=== PATIENT | female | born 1965 | race Hispanic/Latino ===

== ENCOUNTER 2016-08-12 20:48 | Emergency (ER) | payer MEDICAID ==
[2016-08-12 21:00] VITALS: BP 188/121
--- NOTE | 2016-08-12 21:39 | Emergency Department Report ---
Chief Complaint: Nausea/Vomiting/Diarrhea Stated Complaint: FLU SYMPTOMS - Exam Vital Signs: Vital Signs 08/12/16 20:56 Temperature 98.9 F Pulse Rate 111 H Respiratory 20 Rate Blood Pressure 188/121 O2 Sat by Pulse 97 Oximetry MSE screening note: Focused history and physical exam performed. Due to findings the following was ordered: ED Disposition for MSE Condition: Stable
== END 2016-08-12 21:40 | disposition left against medical advice (07) ==
LOC: ED 20:48
DX: R11.2 Nausea with vomiting, unspecified (principal); R50.9 Fever, unspecified; M79.1 Myalgia; Z53.21 Procedure and treatment not carried out due to patient leaving prior to being seen by health care provider

== ENCOUNTER 2017-01-30 08:51 | Emergency (ER) | payer MEDICAID ==
[2017-01-30 09:41] LABS: Basophils % (Auto) 0.4 % (0.0-1.8); Eosinophils % (Auto) 1.3 % (0.0-4.3); Hematocrit 42.8 % (30.3-42.9); Hemoglobin 14.5 gm/dl (10.1-14.3); Mean Corpuscular HGB Conc 34 % (30-34); Mean Corpuscular Hemoglobin 29 pg (28-32); Mean Corpuscular Volume 87 fl (79-97); Platelet Count 383 K/mm3 (140-440); Red Blood Count 4.94 M/mm3 (3.65-5.03); Red Cell Distribution Width 14.3 % (13.2-15.2); White Blood Count 12.5 K/mm3 (4.5-11.0)
[2017-01-30 10:03] LABS: BUN/Creatinine Ratio 23.33; Blood Urea Nitrogen 14 mg/dL (7-17); Calcium 9.4 mg/dL (8.4-10.2); Carbon Dioxide 22 mmol/L (22-30); Chloride 104.9 mmol/L (98-107); Glucose 113 mg/dL (65-100); Lipase 28 units/L (13-60); Sodium 144 mmol/L (137-145)
--- NOTE | 2017-01-30 10:11 | XRay Report ---
CHEST 2 VIEWS INDICATION: Shortness of breath. COMPARISON: 11/08/2016. FINDINGS: PA and lateral chest radiographs demonstrate normal cardiomediastinal silhouette. Clear lungs. Mild thoracic spine degenerative spurring. CONCLUSION: No acute disease in the chest. Thank you for the opportunity to participate in this patient's care.
[2017-01-30 10:15] LABS: Bacteria,Urine 1+ /HPF (Negative); Bilirubin,Urine NEG (Negative); Blood,Urine NEG (Negative); Ketones,Urine NEG (Negative); Leukocyte Esterase,Urine TR (Negative); Mucus,Urine 3+ /HPF; Nitrite,Urine NEG (Negative)
[2017-01-30 11:44] LABS: Anion Gap 21 mmol/L; Potassium 3.6 mmol/L (3.6-5.0)
[2017-01-30 12:09] VITALS: BP 165/94
[2017-01-30] MEDS ORDERED: ZOFRAN IM ONE (12:35)
--- NOTE | 2017-01-30 12:40 | Emergency Department Report ---
HPI - General Chief Complaint: Chest Pain Time Seen by Provider: 01/30/17 12:21 - HPI HPI: Room 7 Patient is a 51-year-old female presenting with a chief complaint of cough. Patient states she has had a "lung infection" intermittently since November. The patient states November she developed a cough productive of green sputum. Patient states the following while she eventually saw her physician (Dr. Lang) placed her on an antibiotic (patient believes it was Keflex). The patient states her fever resolved and her cough improved however after she complained of antibiotics her symptoms return. The patient states this month Dr. Lang again place her on antibiotics but she cannot recall the name. The patient states again her symptoms improve while she finished the course her symptoms return. The patient states she developed a sore throat and right ear pain in addition to her cough productive of green sputum nausea and vomiting. Location: [see above] Duration: [see above] Quality: Nausea Severity: Moderate Modifying factors: [see above] Context: [see above] Mode of transportation: [not driving] ED Past Medical Hx - Past Medical History Previous Medical History?: Yes Hx Hypertension: Yes Hx Arthritis: Yes Hx Headaches / Migraines: (Complex) Additional medical history: Arnold Chiari malformation. Gastroparesis. ruptured disc in back. TIA. meningitis x6 - Surgical History Past Surgical History?: Yes Hx Cholecystectomy: Yes Additional Surgical History: Arnold-Chiari malformation repaired, cyst removed from left neck - Family History Family history: no significant - Social History Smoking Status: Current Every Day Smoker (one pack per day) Substance Use Type: None (denies elicited drug use), Prescribed, Other - Medications Home Medications: Home Medications Medication Instructions Recorded Confirmed Last Taken Type fentaNYL [Fentanyl] 1 each TD Q72H 12/18/15 11/08/16 Unknown History Oxycodone HCl [Roxicodone TAB] 30 mg PO QID PRN 06/24/16 11/08/16 Unknown History Carisoprodol [Soma] 350 mg PO QID 11/08/16 11/08/16 Unknown History Zolpidem [Ambien] 10 mg PO QHS 11/08/16 11/08/16 Unknown History Amoxicillin/K Clav Tab [Augmentin 1 tab PO Q12HR #20 tab 01/30/17 Unknown Rx 875 mg] Benzonatate [Tessalon Perles] 100 mg PO Q8HR #30 capsule 01/30/17 Unknown Rx Ondansetron [Zofran ODT TAB] 8 mg PO Q8HR #20 tab.rapdis 01/30/17 Unknown Rx traMADol [Ultram] 50 mg PO Q6HR PRN #20 tablet 01/30/17 Unknown Rx ED Review of Systems ROS: Stated complaint: CHEST PAIN/VOMITING Other details as noted in HPI Comment: All other systems reviewed and negative Constitutional: fever Eyes: denies: eye pain, eye discharge, vision change ENT: ear pain, throat pain Respiratory: cough Cardiovascular: denies: chest pain, palpitations Endocrine: no symptoms reported Gastrointestinal: nausea, vomiting Genitourinary: denies: urgency, dysuria, discharge Musculoskeletal: denies: back pain, joint swelling, arthralgia Skin: denies: rash, lesions Neurological: denies: headache, weakness, paresthesias Psychiatric: as per HPI Hematological/Lymphatic: denies: easy bleeding, easy bruising Physical Exam - Physical Exam Vital Signs: Vital Signs 01/30/17 01/30/17 01/30/17 09:09 12:09 12:10 Temperature 98.7 F 98.9 F Pulse Rate 81 80 Respiratory 20 15 15 Rate Blood Pressure 183/104 Blood Pressure 165/94 [Left] O2 Sat by Pulse 97 94 94 Oximetry Physical Exam: GENERAL: The patient is well-developed well-nourished female lying on stretcher not appearing to be in acute distress. [] HEENT: Normocephalic. Atraumatic. Extraocular motions are intact. Patient has moist mucous membranes. Right tonsillar exudate seen. Right TM slightly erythematous superiorly. Normal TM on the left NECK: Supple. No meningitic signs are noted. Trachea midline. No stridor CHEST/LUNGS: Clear to auscultation. There is no respiratory distress noted. HEART/CARDIOVASCULAR: Regular. There is no tachycardia. There is no gallop rub or murmur. ABDOMEN: Abdomen is soft, nontender. Patient has normal bowel sounds. There is no abdominal distention. SKIN: There is no rash. There is no edema. There is no diaphoresis. NEURO: The patient is awake, alert, and oriented. The patient is cooperative. The patient has normal speech MUSCULOSKELETAL: There is no evidence of acute injury. ED Course Vital Signs 01/30/17 01/30/17 01/30/17 09:09 12:09 12:10 Temperature 98.7 F 98.9 F Pulse Rate 81 80 Respiratory 20 15 15 Rate Blood Pressure 183/104 Blood Pressure 165/94 [Left] O2 Sat by Pulse 97 94 94 Oximetry ED Medical Decision Making - Lab Data Result diagrams: 01/30/17 09:21 01/30/17 09:21 Laboratory Tests 01/30/17 01/30/17 01/30/17 09:21 09:21 09:58 WBC 12.5 H RBC 4.94 Hgb 14.5 H Hct 42.8 MCV 87 MCH 29 MCHC 34 RDW 14.3 Plt Count 383 Lymph % (Auto) 20.3 [place] % (Auto) 8.6 H Eos % (Auto) 1.3 Baso % (Auto) 0.4 Lymph # 2.5 [place] # 1.1 H Eos # 0.2 Baso # 0.0 Seg Neutrophils % 69.4 Seg Neutrophils # 8.7 H Sodium 144 Potassium 3.6 Chloride 104.9 Carbon Dioxide 22 Anion Gap 21 BUN 14 Creatinine 0.6 L Estimated GFR > 60 BUN/Creatinine Ratio 23.33 Glucose 113 H Calcium 9.4 Troponin T < 0.010 Lipase 28 Urine Color Yellow Urine Turbidity Slightly-cloudy Urine pH 5.0 Ur Specific [place] 1.028 Urine Protein 30 mg/dl Urine Glucose (UA) Neg Urine Ketones Neg Urine Blood Neg Urine Nitrite Neg Urine Bilirubin Neg Urine Urobilinogen 2.0 Ur Leukocyte Esterase Tr Urine WBC (Auto) 11.0 H Urine RBC (Auto) 4.0 U Epithel Cells (Auto) 15.0 H Urine Bacteria (Auto) 1+ Urine Mucus 3+ - EKG Data -: EKG Interpreted by Me EKG shows normal: sinus rhythm Rate: normal - EKG Data When compared to previous EKG there are: no significant change Interpretation: unchanged when compared t (11/11/2016) - Radiology Data Radiology results: report reviewed (chest x-ray), image reviewed (chest x-ray) interpreted by me: Chest x-ray-no focal infiltrates, no pneumothorax Chest x-ray (read by radiologist)-no acute disease in the chest - Differential Diagnosis URI, pharyngitis, bronchitis, otitis media, pneumonia Critical care attestation.: If time is entered above; I have spent that time in minutes in the direct care of this critically ill patient, excluding procedure time. ED Disposition Clinical Impression: Acute pharyngitis, Right otitis media, Acute bronchitis, Post-tussive emesis Disposition: TO HOME OR SELFCARE Is pt being admited?: No Does the pt Need Aspirin: No Condition: Stable Instructions: Acute Bronchitis (ED) Additional Instructions: Return to the emergency department immediately should you develop worsening symptoms, fever, inability to tolerate food or liquid or any other concerns. 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 Please follow up with him for further evaluation) Time of Disposition: 12:56
[2017-01-30] MEDS ORDERED: ULTRAM ONE (12:58)
== END 2017-01-30 13:23 | disposition home or self-care (01) ==
LOC: ED 08:51
DX: J02.9 Acute pharyngitis, unspecified (principal); H66.91 Otitis media, unspecified, right ear; J20.9 Acute bronchitis, unspecified; I10 Essential (primary) hypertension; M19.90 Unspecified osteoarthritis, unspecified site; G43.909 Migraine, unspecified, not intractable, without status migrainosus; F17.210 Nicotine dependence, cigarettes, uncomplicated
CPT/HCPCS: 36415; 71020; 80048; 81001; 83690; 84484; 85025; 93005; 93010; 96372; 99284; J2405

== ENCOUNTER 2017-03-03 11:19 | Inpatient (IN) | payer MEDICAID ==
[2017-03-03 12:21] LABS: Bilirubin,Urine NEG (Negative); Blood,Urine SM (Negative); Ketones,Urine NEG (Negative); Leukocyte Esterase,Urine NEG (Negative); Mucus,Urine 3+ /HPF; Nitrite,Urine NEG (Negative)
[2017-03-03 12:27] LABS: Basophils % (Auto) 0.4 % (0.0-1.8); Eosinophils % (Auto) 0.1 % (0.0-4.3); Hematocrit 46.4 % (30.3-42.9); Hemoglobin 15.6 gm/dl (10.1-14.3); Mean Corpuscular HGB Conc 34 % (30-34); Mean Corpuscular Hemoglobin 29 pg (28-32); Mean Corpuscular Volume 87 fl (79-97); Platelet Count 375 K/mm3 (140-440); Red Blood Count 5.32 M/mm3 (3.65-5.03); Red Cell Distribution Width 14.3 % (13.2-15.2); White Blood Count 12.1 K/mm3 (4.5-11.0)
[2017-03-03 13:13] LABS: Alanine Aminotransferase 10 units/L (7-56); Albumin/Globulin Ratio 1.6 %; Alkaline Phosphatase 105 units/L (35-129); Anion Gap 23 mmol/L; BUN/Creatinine Ratio 17.77; Blood Urea Nitrogen 16 mg/dL (7-17); Calcium 10.1 mg/dL (8.4-10.2); Carbon Dioxide 23 mmol/L (22-30); Chloride 104.6 mmol/L (98-107); Glucose 104 mg/dL (65-100); Potassium 3.9 mmol/L (3.6-5.0); Sodium 147 mmol/L (137-145); Total Protein 8.2 g/dL (6.3-8.2)
[2017-03-03] MEDS ORDERED: NACL 0.9% 1000 ML 1,000 ML IV ONE ×2 (15:18→18:47)
[2017-03-03] MEDS ORDERED: DILAUDID IV ONE ×3 (15:18→18:46)
[2017-03-03] MEDS ORDERED: ZOFRAN IV ONE ×2 (15:18→17:29)
[2017-03-03] MEDS ORDERED: VALIUM IV ONE (15:18)
[2017-03-03] MEDS ORDERED: NACL ONE ×2 (15:22→16:00)
--- NOTE | 2017-03-03 16:35 | Cat Scan Report ---
FINAL REPORT PROCEDURE: CT head without contrast. TECHNIQUE: Computerized tomography of the head was performed without contrast material. HISTORY: Patient fell, question syncope, head injury. COMPARISON: CT head 11/07/2016. FINDINGS: The ventricles are normal in size. There is some encephalomalacia involving the left frontal and left temporal lobes near the sylvian fissure. This is consistent with an old infarct. Clinical correlation is suggested. The desai matter and white matter otherwise appear normal. There are no mass lesions. There is no intracranial hemorrhage. The calvarium appears intact. The mastoid air cells and visualized paranasal sinuses are well aerated. IMPRESSION: Probable previous old left-sided stroke as described. No evidence of acute disease.
--- NOTE | 2017-03-03 17:01 | Cat Scan Report ---
FINAL REPORT PROCEDURE: CT abdomen and pelvis with contrast. TECHNIQUE: Computerized axial tomography of the abdomen and pelvis was performed after the IV injection of iodinated nonionic contrast. HISTORY: Nausea, vomiting, abdominal pain, lower back pain after fall. COMPARISON: CT abdomen and pelvis 06/24/2016. FINDINGS: The lung bases are clear. There are no pleural effusions. The heart size is normal. The liver, pancreas and spleen appear normal. Cholecystectomy clips are present. There is mild intrahepatic and moderate extrahepatic biliary dilatation. This may be simply on the basis of the previous cholecystectomy. An MRCP or ERCP could be done for further evaluation if clinically indicated. The adrenal glands are not enlarged. There are approximately 4 small left renal cysts. The abdominal aorta has a normal caliber. There is no retroperitoneal adenopathy. The unopacified gastrointestinal tract is unremarkable. A normal appendix is visible. The bladder is unremarkable. There are some calcifications in the uterus suggesting degenerating leiomyomas. The adnexal regions appear normal. The regional skeleton appears intact. IMPRESSION: Previous cholecystectomy. Biliary dilatation as described. No definite signs of acute disease.
[2017-03-03] MEDS ORDERED: BENADRYL ONE (17:18)
[2017-03-03] MEDS ORDERED: BENADRYL IV ONE (17:29)
[2017-03-03] MEDS ORDERED: PHENERGAN PR ONE (18:47)
--- NOTE | 2017-03-03 18:47 | Emergency Department Report ---
ED Abdominal Pain HPI - General Chief Complaint: Nausea/Vomiting/Diarrhea Stated Complaint: HEADACHE/BACKACHE Time Seen by Provider: 03/03/17 15:11 Source: patient Mode of arrival: Ambulatory Limitations: No Limitations - History of Present Illness Initial Comments: 51-year-old female with a past medical history of complex migraines, Arnold- Chiari mild summation, ruptured disc in back, meningitis 6, and gastroparesis presents to the hospital complaining of lower back pain, dull pain, nausea, and vomiting. She had a ground-level fall yesterday landing on her lower back. Patient complains of 9/10 lower back pain is constant, worse with movement and palpation. Patient also complaint of intermittent back spasms. Patient states she struck her head when she fell and thinks she passed out. She complains of 7 /10 global headache. He thinks that the fall has exacerbated her gastroparesis and she has had vomiting and by mouth intolerance today. She complains of generalized abdominal soreness secondary to vomiting. Severity scale (0 -10): 6 - Related Data Home Medications Medication Instructions Recorded Confirmed Last Taken fentaNYL [Fentanyl] 1 each TD Q72H 12/18/15 03/03/17 03/01/17 Oxycodone HCl [Roxicodone TAB] 30 mg PO QID PRN 06/24/16 03/03/17 03/01/17 Carisoprodol [Soma] 350 mg PO QID 11/08/16 03/03/17 03/01/17 Zolpidem [Ambien] 10 mg PO QHS 11/08/16 03/03/17 03/01/17 Previous Rx's Medication Instructions Recorded Last Taken Type Benzonatate [Tessalon Perles] 100 mg PO Q8HR #30 capsule 01/30/17 03/01/17 Rx Ondansetron [Zofran ODT TAB] 8 mg PO Q8HR #20 tab.rapdis 01/30/17 03/01/17 Rx Allergies Allergy/AdvReac Type Severity Reaction Status Date / Time hydrocodone Allergy Vomiting Verified 03/03/17 19:25 ketorolac tromethamine Allergy Anaphylaxis Verified 03/03/17 19:25 [From Toradol] meperidine HCl [From Demerol] Allergy Swelling Verified 03/03/17 19:25 morphine Allergy Rash Verified 03/03/17 19:25 ED Review of Systems ROS: Stated complaint: HEADACHE/BACKACHE Other details as noted in HPI Comment: All other systems reviewed and negative Other: Constitutional: No fevers chills Eyes: No eye pain visual changes ENT: No ear pain or throat pain Neck: Denies pain Respiratory: Denies cough wheezing shortness of breath Cardiovascular: Denies chest pain, palpitations GI: As per HPI : Denies dysuria, urinary frequency, or urgency Musculoskeletal: As per HPI Skin: Denies rash, lesions, erythema Neurologic: + koroma, no focal weakness, numbness Psychiatric: Denies suicidal ideation, hallucinations ED Past Medical Hx - Past Medical History Hx Hypertension: Yes Hx Congestive Heart Failure: No Hx Diabetes: No Hx Arthritis: Yes Hx Headaches / Migraines: Yes (Complex) Hx Seizures: No Hx Asthma: No Hx COPD: No Hx Dementia: No Hx HIV: No Additional medical history: Arnold Chiari malformation. ruptured disc in back. TIA. meningitis x6 - Surgical History Hx Cholecystectomy: Yes Additional Surgical History: Arnold-Chiari malformation repaired, cyst removed from left neck - Social History Smoking Status: Current Every Day Smoker Substance Use Type: None - Medications Home Medications: Home Medications Medication Instructions Recorded Confirmed Last Taken Type fentaNYL [Fentanyl] 1 each TD Q72H 12/18/15 03/03/17 03/01/17 History Oxycodone HCl [Roxicodone TAB] 30 mg PO QID PRN 06/24/16 03/03/17 03/01/17 History Carisoprodol [Soma] 350 mg PO QID 11/08/16 03/03/17 03/01/17 History Zolpidem [Ambien] 10 mg PO QHS 11/08/16 03/03/17 03/01/17 History Benzonatate [Tessalon Perles] 100 mg PO Q8HR #30 capsule 01/30/17 03/03/1703/01 Rx Ondansetron [Zofran ODT TAB] 8 mg PO Q8HR #20 tab.rapdis 01/30/17 03/03/1703/01 Rx ED Physical Exam - General Limitations: No Limitations - Other Other exam information: General: No limitations, patient is alert in no acute distress Head exam: Atraumatic, normocephalic Eyes exam: Normal appearance, pupils equal reactive to light, extraocular movements intact ENT: Moist mucous membrane, normal oropharynx Neck exam: Normal inspection, full range of motion, no meningismus nontender Respiratory exam: Clear to auscultation bilateral, no wheezes, rales, crackles Cardiovascular: Normal rate and rhythm Abdomen: Soft, nondistended, mild generalized abdominal tenderness, with normal bowel sounds, no rebound, or guarding. Positive vomitus in the room Extremity: Full range of motion normal inspection no deformity Back: Normal Inspection, full range of motion, generalized lower back tenderness including midline Neurologic: Alert, oriented x3, cranial nerves intact, no motor or sensory deficit Psychiatric: normal affect, normal mood Skin: Warm, dry, intact ED Course Vital Signs 03/03/17 03/03/17 03/03/17 11:37 12:37 16:54 Temperature 98.0 F 99.1 F 99.2 F Pulse Rate 105 H 102 H 74 Respiratory 18 18 16 Rate Blood Pressure 187/125 Blood Pressure 168/106 190/102 [Left] O2 Sat by Pulse 97 95 100 Oximetry 03/03/17 03/03/17 18:37 19:21 Temperature 99.2 F Pulse Rate 64 60 Respiratory 18 20 Rate Blood Pressure Blood Pressure 186/88 185/94 [Left] O2 Sat by Pulse 100 96 Oximetry - Reevaluation(s) Reevaluation #1: 03/03/17 Despite multiple rounds of Dilaudid, Valium, Zofran, and Phenergan patient continues to have pain and vomiting. 03/03/17 19:56 ED Medical Decision Making - Lab Data Result diagrams: 03/03/17 11:56 03/03/17 11:56 Lab Results 03/03/17 03/03/17 03/03/17 Range/Units 11:56 11:56 11:56 WBC 12.1 H (4.5-11.0) K/mm3 RBC 5.32 H (3.65-5.03) M/mm3 Hgb 15.6 H (10.1-14.3) gm/dl Hct 46.4 H (30.3-42.9) % MCV 87 (79-97) fl MCH 29 (28-32) pg MCHC 34 (30-34) % RDW 14.3 (13.2-15.2) % Plt Count 375 (140-440) K/mm3 Lymph % (Auto) 17.2 (13.4-35.0) % [place] % (Auto) 4.9 (0.0-7.3) % Eos % (Auto) 0.1 (0.0-4.3) % Baso % (Auto) 0.4 (0.0-1.8) % Lymph # 2.1 (1.2-5.4) K/mm3 [place] # 0.6 (0.0-0.8) K/mm3 Eos # 0.0 (0.0-0.4) K/mm3 Baso # 0.0 (0.0-0.1) K/mm3 Seg Neutrophils % 77.4 H (40.0-70.0) % Seg Neutrophils # 9.4 H (1.8-7.7) K/mm3 Sodium 147 H (137-145) mmol/L Potassium 3.9 (3.6-5.0) mmol/L Chloride 104.6 (98-107) mmol/L Carbon Dioxide 23 (22-30) mmol/L Anion Gap 23 mmol/L BUN 16 (7-17) mg/dL Creatinine 0.9 (0.7-1.2) mg/dL Estimated GFR > 60 ml/min BUN/Creatinine Ratio 17.77 % Glucose 104 H (65-100) mg/dL Calcium 10.1 (8.4-10.2) mg/dL Total Bilirubin 0.40 (0.1-1.2) mg/dL AST 14 (5-40) units/L ALT 10 (7-56) units/L Alkaline Phosphatase 105 (35-129) units/L Total Protein 8.2 (6.3-8.2) g/dL Albumin 5.0 (3.9-5) g/dL Albumin/Globulin Ratio 1.6 % Lipase (13-60) units/L Urine Color Yellow (Yellow) Urine Turbidity Clear (Clear) Urine pH 5.0 (5.0-7.0) Ur Specific [place] 1.039 H (1.003-1.030) Urine Protein 100 mg/dl (Negative) mg/dL Urine Glucose (UA) Neg (Negative) mg/dL Urine Ketones Neg (Negative) mg/dL Urine Blood Sm (Negative) Urine Nitrite Neg (Negative) Urine Bilirubin Neg (Negative) Urine Urobilinogen 2.0 (<2.0) mg/dL Ur Leukocyte Esterase Neg (Negative) Urine WBC (Auto) 5.0 (0.0-6.0) /HPF Urine RBC (Auto) 4.0 (0.0-6.0) /HPF U Epithel Cells (Auto) 17.0 H (0-13.0) /HPF Urine Mucus 3+ /HPF Urine HCG, Qual Negative (Negative) 03/03/17 Range/Units 15:17 WBC (4.5-11.0) K/mm3 RBC (3.65-5.03) M/mm3 Hgb (10.1-14.3) gm/dl Hct (30.3-42.9) % MCV (79-97) fl MCH (28-32) pg MCHC (30-34) % RDW (13.2-15.2) % Plt Count (140-440) K/mm3 Lymph % (Auto) (13.4-35.0) % [place] % (Auto) (0.0-7.3) % Eos % (Auto) (0.0-4.3) % Baso % (Auto) (0.0-1.8) % Lymph # (1.2-5.4) K/mm3 [place] # (0.0-0.8) K/mm3 Eos # (0.0-0.4) K/mm3 Baso # (0.0-0.1) K/mm3 Seg Neutrophils % (40.0-70.0) % Seg Neutrophils # (1.8-7.7) K/mm3 Sodium (137-145) mmol/L Potassium (3.6-5.0) mmol/L Chloride (98-107) mmol/L Carbon Dioxide (22-30) mmol/L Anion Gap mmol/L BUN (7-17) mg/dL Creatinine (0.7-1.2) mg/dL Estimated GFR ml/min BUN/Creatinine Ratio % Glucose (65-100) mg/dL Calcium (8.4-10.2) mg/dL Total Bilirubin (0.1-1.2) mg/dL AST (5-40) units/L ALT (7-56) units/L Alkaline Phosphatase (35-129) units/L Total Protein (6.3-8.2) g/dL Albumin (3.9-5) g/dL Albumin/Globulin Ratio % Lipase 25 (13-60) units/L Urine Color (Yellow) Urine Turbidity (Clear) Urine pH (5.0-7.0) Ur Specific [place] (1.003-1.030) Urine Protein (Negative) mg/dL Urine Glucose (UA) (Negative) mg/dL Urine Ketones (Negative) mg/dL Urine Blood (Negative) Urine Nitrite (Negative) Urine Bilirubin (Negative) Urine Urobilinogen (<2.0) mg/dL Ur Leukocyte Esterase (Negative) Urine WBC (Auto) (0.0-6.0) /HPF Urine RBC (Auto) (0.0-6.0) /HPF U Epithel Cells (Auto) (0-13.0) /HPF Urine Mucus /HPF Urine HCG, Qual (Negative) - Radiology Data Radiology results: report reviewed CT head: No acute findings CT abdomen and pelvis IV contrast: No acute findings - Medical Decision Making Patient has no improvement despite hours in the ED and multiple rounds of medications for nausea, pain, muscle spasm, and vomiting. Plan to admit patient to the hospital. CT of head and abdomen and pelvis did not show any acute surgical or infectious emergency. - Differential Diagnosis gastritis, pancreatitis, gastroparesis, fracture, contusion, sprain Critical Care Time: No Critical care attestation.: If time is entered above; I have spent that time in minutes in the direct care of this critically ill patient, excluding procedure time. ED Disposition Clinical Impression: Gastroparesis, Intractable abdominal pain, Vomiting, Back pain, Hypertension Disposition: OP ADMIT IP TO THIS HOSP Is pt being admited?: Yes Condition: Stable Time of Disposition: 18:48 (Dr Schaefer/hosp)
--- NOTE | 2017-03-03 19:11 | History and Physical Report ---
History of Present Illness Chief complaint: I feel sick at my stomach, History of present illness: 51 YO Female with Nicotine Dependence, OA, Migraine CERVANTES, Arnold Chiari Malformation S/P repair, TIA presents to ED for evaluation. Pt states that she has experienced abdominal pain, nausea, and vomiting for the past 3 days with worsening symptoms over the past 8 hours. Pt also states that she has a mild headache, and backache which has been present for the past 1 day and was started after the nausea and vomiting. Pt acknowledges decreased oral intake. Pt denies fever, chills, CP, Palpitations, Syncope, vision changes, loss of bowel/bladder continence, consumption of food/water from new or different sources, or recent ill contacts. Past History Past Medical History: arthritis, stroke, other (Arnold chiari malformation, ) Past Surgical History: Other (Arnold chiari repair) Social history: single, smoking. denies: alcohol abuse, prescription drug abuse , IV drug use Family history: hypertension Medications and Allergies Allergies Allergy/AdvReac Type Severity Reaction Status Date / Time hydrocodone Allergy Vomiting Verified 03/03/17 19:25 ketorolac tromethamine Allergy Anaphylaxis Verified 03/03/17 19:25 [From Toradol] meperidine HCl [From Demerol] Allergy Swelling Verified 03/03/17 19:25 morphine Allergy Rash Verified 03/03/17 19:25 Home Medications Medication Instructions Recorded Confirmed Last Taken Type fentaNYL [Fentanyl] 1 each TD Q72H 12/18/15 02/04/17 02/01/17 History Oxycodone HCl [Roxicodone TAB] 30 mg PO QID PRN 06/24/16 02/04/17 01/31/17 History Carisoprodol [Soma] 350 mg PO QID 11/08/16 02/04/17 01/31/17 History Zolpidem [Ambien] 10 mg PO QHS 11/08/16 02/04/17 01/31/17 History Benzonatate [Tessalon Perles] 100 mg PO Q8HR #30 capsule 01/30/17 02/04/1701/31 Rx Ondansetron [Zofran ODT TAB] 8 mg PO Q8HR #20 tab.rapdis 01/30/17 02/04/1701/31 Rx Active Meds: Active Medications Sodium Chloride (Nacl 0.9% 1000 Ml) 1,000 mls @ 999 mls/hr IV BOLUS ONE Stop: 03/03/17 19:47 Last Admin: 03/03/17 19:01 Dose: 999 mls/hr Review of Systems Constitutional: no weight loss, no weight gain, no fever Ears, nose, mouth and throat: no ear pain, no ear discharge, no tinnitis, no decreased hearing Breasts: no change in shape, no swelling, no mass Cardiovascular: no chest pain, no orthopnea, no palpitations, no claudication, no high blood pressure Respiratory: no cough, no excessive sputum, no shortness of breath, no congestion, no wheezing, no sleep apnea, no home oxygen Gastrointestinal: abdominal pain, nausea, vomiting Genitourinary Female: no pelvic pain, no menorrhagia, no urinary frequency, no abnormal vaginal bleeding, no vaginal dryness, no hot flashes Rectal: no pain, no bleeding, no hemorrhoids Musculoskeletal: no neck pain, no shooting arm pain, no low back pain, no leg numbness/tingling, no hot joints, no muscle weakness Integumentary: no pruritis, no sores, no jaundice, no lesions, no color changes Neurological: migraines, no paralysis, no numbness, no tingling, no tic, no motor disturbance, no sensory deficit, no hearing difficulties Psychiatric: no change in sleep habits, no insomnia, no change in libido Endocrine: no heat intolerance, no excessive thirst, no excessive sweating Hematologic/Lymphatic: no easy bruising, no easy bleeding Allergic/Immunologic: no urticaria, no allergic rhinitis, no wheezing Exam - Constitutional Vitals: Temp Pulse Resp BP Pulse Ox 99.2 F 64 18 186/88 100 03/03/17 18:37 03/03/17 18:37 03/03/17 18:37 03/03/17 18:37 03/03/17 18:37 General appearance: Present: mild distress - EENT Eyes: Present: PERRL ENT: hearing intact, clear oral mucosa - Neck Neck: Present: supple, normal ROM - Respiratory Respiratory effort: normal Respiratory: bilateral: CTA - Cardiovascular Heart Sounds: Present: S1 & S2. Absent: rub, click - Extremities Extremities: pulses symmetrical, No edema Peripheral Pulses: within normal limits - Abdominal General gastrointestinal: Present: soft, non-tender, tender, normal bowel sounds. Absent: hepatomegaly, splenomegaly, mass Localized gastrointestinal: tender: diffuse, rebound: diffuse Female genitourinary: Present: normal - Integumentary Integumentary: Present: clear, warm, dry - Musculoskeletal Musculoskeletal: gait normal, strength equal bilaterally - Psychiatric Psychiatric: appropriate mood/affect, intact judgment & insight - Neurologic Neurologic: CNII-XII intact, moves all extremities Results - Labs CBC & Chem 7: 03/03/17 11:56 03/03/17 11:56 Labs: Abnormal lab results 03/03/17 03/03/17 03/03/17 Range/Units 11:56 11:56 11:56 WBC 12.1 H (4.5-11.0) K/mm3 RBC 5.32 H (3.65-5.03) M/mm3 Hgb 15.6 H (10.1-14.3) gm/dl Hct 46.4 H (30.3-42.9) % Seg Neutrophils % 77.4 H (40.0-70.0) % Seg Neutrophils # 9.4 H (1.8-7.7) K/mm3 Sodium 147 H (137-145) mmol/L Glucose 104 H (65-100) mg/dL Ur Specific [place] 1.039 H (1.003-1.030) U Epithel Cells (Auto) 17.0 H (0-13.0) /HPF Assessment and Plan - Patient Problems (1) Accelerated hypertension Current Visit: Yes Status: Acute Plan to address problem: Monitor bp q shift, hydralazine prn, (2) Acute peritonitis Current Visit: Yes Status: Acute Plan to address problem: IV abx, ivf, bowel rest, serial abdominal exam, lactic acid level, (3) Gastroenteritis Current Visit: Yes Status: Acute Plan to address problem: Bowel rest, IVF resuscitation, repeat bmp, (4) Volume depletion Current Visit: Yes Status: Acute Plan to address problem: IVF resuscitation, monitor uop q shift, (5) Intractable nausea and vomiting Current Visit: Yes Status: Acute Qualifiers: Vomiting type: V Plan to address problem: antiemetic therapy, diet as tolerated. (6) DVT prophylaxis Current Visit: Yes Status: Acute
[2017-03-03] MEDS ORDERED: MILK OF MAGNESIA PO PRN (19:41)
[2017-03-03] MEDS ORDERED: PROVENTIL IH PRN (19:41)
[2017-03-03] MEDS ORDERED: ZOFRAN IV PRN (19:41)
[2017-03-03] MEDS ORDERED: TYLENOL PO PRN (19:41)
[2017-03-03] MEDS ORDERED: DULCOLAX PR PRN (19:41)
[2017-03-03] MEDS ORDERED: D5/0.45NS 1,000 ML IV SCH (20:00)
[2017-03-03] MEDS ORDERED: REGLAN IV ONE (21:49)
[2017-03-03] MEDS ORDERED: PEPCID IV SCH (22:00)
[2017-03-03 22:11] VITALS: BP 173/109
[2017-03-03] MEDS: ZOSYN/NS 4.5GM/100ML 4.5 GM/100 ML VIAL IV SCH (22:17)
[2017-03-03] MEDS: FLAGYL 500 MG/100 ML 500 MG/100 ML BAG IV SCH (22:17)
--- NOTE | 2017-03-04 03:04 | Admit Criteria Form ---
Admission Criteria Documentation: ABDOMINAL PAIN Clinical Indications for Admission to Inpatient Care ( ekwok/check or initial the applicable condition/criteria): Admission is indicated for ANY ONE of the following (1)(2)(3)(4)(5)(6): [ ]I. Surgery needed that cannot be performed on ambulatory basis [ ]II. Peritoneal signs present (eg, rebound tenderness, rigidity) [ ]III. Evaluation requires patient to not eat or drink for extended period ( eg, more than 24 hours). [ X]IV. Inpatient admission required[B] rather than observation care (see Abdominal Pain: Observation Care guideline as appropriate) because of ANY ONE of the following(7)(8)(9): [ ] a) Hemodynamic instability [ ]b) Severe pain requiring acute inpatient management [X ]c) Identification of etiology or finding that requires inpatient care (eg, aortic dissection, free air,bowel ischemia)(10) [ ]d) Absent bowel sounds with complete ileus (11) [ ]e) Signs of intestinal obstruction[C] [ ]f) Suspected toxic megacolon [ ]g) Severe electrolyte abnormalities requiring inpatient care [ ]h) High fever or infection requiring inpatient admission as indicated by ANY ONE of the following (12)(13): [ ]i) Appropriate outpatient or observation care antimicrobial treatment unavailable, not effective, or not feasible [ ]ii) Documented bacteremia [ ]iii) Temperature greater than 104.9 degrees F (40.5 degrees C) (oral) [ ]iv) Temperature greater than 103.1 degrees F (39.5 degrees C) ( oral) or less than 96.8 degrees F (36 degrees C) (rectal) that does not respond to all emergency treatment measures [ ]i) IV fluid required rather than oral rehydration to replace significant ongoing (eg, for greater than 24 hours) losses (greater than 3 L/m2 per day)(14)(15) [ ]j) Percutaneous or open drainage (eg, abscess, biliary tract) procedures [ ]k) Parenteral nutrition regimen that must be implemented on inpatient basis [ ]l) Other condition, treatment, or monitoring requiring inpatient admission Extended stay beyond goal length of stay may be needed for (1)(3)(4)(10)(16): [ ]a) Surgery (e.g., colectomy, revascularization procedure) [ ]b) Persistent abdominal pain with suspected intra-abdominal process [ ]c) Diagnosed condition requiring continued stay (e.g., pancreatitis, complicated diverticulitis) The original [facility] content created by [facility] has been revised. The portions of the content which have been revised are identified through the use of italic text or in bold, and [facility] has neither reviewed nor approved the modified material.All other unmodified content is copyright [facility]. Please see references footnoted in the original [facility] edition 2017 Admission Criteria Met: Yes
[2017-03-04] MEDS: FLAGYL 500 MG/100 ML 500 MG/100 ML BAG IV SCH (05:00)
[2017-03-04] MEDS: ZOSYN/NS 4.5GM/100ML 4.5 GM/100 ML VIAL IV SCH (05:22)
[2017-03-04 06:20] LABS: Basophils % (Auto) 0.5 % (0.0-1.8); Hematocrit 43.2 % (30.3-42.9); Mean Corpuscular HGB Conc 35 % (30-34); Mean Corpuscular Hemoglobin 30 pg (28-32); Mean Corpuscular Volume 85 fl (79-97); Platelet Count 352 K/mm3 (140-440); Red Blood Count 5.06 M/mm3 (3.65-5.03); Red Cell Distribution Width 14.4 % (13.2-15.2); White Blood Count 14.4 K/mm3 (4.5-11.0)
--- NOTE | 2017-03-04 18:09 | Event Note ---
Date: 03/04/17 Patient left AMA before I evaluated her. I didn't called when she left. She left around 7:30.
--- NOTE | 2017-03-07 13:42 | Query-Infection ---
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 Questions asked do not imply a particular answer is desired or expected. We greatly appreciate your clarification on this issue. Clinical Documentation States: 51 year old female was admitted on 03/03/17. The H&P (Dr. Schaefer) states " Assessment and Plan : (2) Acute peritonitis Plan to address problem: IV abx, ivf, bowel rest, serial abdominal exam, lactic acid level, (3) Gastroenteritis " WBC: 14.4 Pulse rate: 105 Medications: IV zosyn, metronidazole Clinical findings show: (please check applicable parameters) Infection, known /suspected, with some of the following indicators; Specify the infection: 3 General parameters [ ] Fever (core temp >38.30C or 100.40F) [ ] Hypothermia (core temp <36C) [ x] Heart rate >90 bpm [ ] Tachypnea: >20 bpm or pCO2 < 32 mmHg [ ] Altered mental status [ ] Significant edema / +ve fluid balance (>20 ml/kg 24 h) [ ] Hyperglycemia (Bl. glucose >110 mg/dl) w/o diabetes Inflammatory parameters [ x] Leukocytosis (white blood cell count >12,000/l) [ ] Leukopenia (white blood cell count <4,000/l) [ ] Bandemia (immature WBC > 10%) [ ] Leucocyte Left Shift [ ] Plasma procalcitonin>2 SD above the normal value Hemodynamic and tissue perfusion parameters [ ] Arterial hypotension(SBP <90 mmHg, MAP <70 mmHg,or a SBP drop >40 mmHg in adults) [ ] Hyperlactatemia (>3 mmol/l) [ ] Anion Gap (> 11mEG/l) [ ] Decreased capillary refill or mottling Organ dysfunction parameters [ ] Arterial hypoxemia (PaO2/FIO2 <300) [ ] Creatinine increase =0.5 mg/dl [ ] Acute oliguria (urine output <0.5 ml | kg |h or 45 mM/l for at least 2 hrs) [ ] Coagulation abnormalities (INR >1.5 or activated partial thromboplastin time >60 s) [ ] Ileus (absent romaine wel sounds) [ ] Thrombocytopenia (platelet count <100,000/l) [ ] Hyperbilirubinemia (plasma total bilirubin >4 mg/dl) According to the clinical indications above, can Bacteremia be further specified? If so, please indicate below and in your Progress Notes and/ or Discharge Summary. Indicate if the condition was present on admission. PHYSICIAN RESPONSE: [ x] Sepsis [ ] Severe Sepsis [ ] Septic Shock [ ] Septicemia [ ] Sepsis now resolved [ ] SIRS due to non-infectious cause with organ dysfunction [ ] SIRS due to non-infectious cause without organ dysfunction [ ] Other: [ ] Comment/Explanation: Present on Admission: [x ] Yes (Y) [ ] Clinically undeterminable (W) [ ] No (N) [ ] Ruled Out Please also document response in your Progress Notes and/or Discharge Summary and indicate if the condition was present on admission Notes: SIRS/ SIRS WITH ORGAN DYSFUNCTION Systemic inflammatory response syndrome (SIRS) generally refers to the systemic response to trauma/vee or other insult such as Acute Myocardial Infarction, Acute Pancreatitis, and Major Surgery with symptoms including fever, tachycardia , tachypnea, and leukocytosis (1). BACTEREMIA Presence of viable bacteria in the circulating blood (2). This term is reserved for patients that do not manifest above SIRS response. SEPTICEMIA Generally refers to a systemic disease associated with the presence of pathological microorganisms or toxins in the blood, which can include bacteria, viruses, fungi or other organisms (1). SEPSIS Generally refers to SIRS due infection (1). SEVERE SEPSIS Generally refers to sepsis associated with acute organ dysfunction (1). SEPTIC SHOCK Generally refers to circulatory failure associated with severe sepsis (2), and defined as hypotension or hypoperfusion despite adequate fluid resuscitation (1 hour) (3). REFERENCES: 1. [place] [employer]/Society of Critical Care Medicine Consensus Conference. Definitions for sepsis and organ failure and guidelines for the use of innovative therapies in sepsis. Critical Care Med 1992;20:864 - 74. 2. Kain earl MM, Laquita MP, Kurtis KNIGHT, Ravi E, Reynaldo D, Rachid D, Les J, Janna SM , Thomas JL, Eloise G; International Sepsis Definitions Conference. 2001 SCCM/ESICM/ACCP/ATS/SIS International Sepsis Definitions Conference. Intensive Care Med. 2002;29(4):530-8. Epub 2002Oct 09. Review. PubMed PMID:[id number] 3. ICD-9-CM Official Guidelines for Coding and Reporting 4. Medscape Drugs, Diseases and Procedures references 5. [employer]isons Textbook of Internal Medicine. 18th Edition MTDD
== END 2017-03-04 11:42 | disposition left against medical advice (07) | DRG 871 ==
LOC: ED 11:19 → 3A 19:41
PROVIDERS: ADMIT Internal Medicine; ATTEND Internal Medicine
DX: A41.9 Sepsis, unspecified organism (principal); K65.0 Generalized (acute) peritonitis; K52.9 Noninfective gastroenteritis and colitis, unspecified; E86.9 Volume depletion, unspecified; I10 Essential (primary) hypertension; G43.909 Migraine, unspecified, not intractable, without status migrainosus; M19.90 Unspecified osteoarthritis, unspecified site; Z90.49 Acquired absence of other specified parts of digestive tract; Z86.73 Personal history of transient ischemic attack (TIA), and cerebral infarction without residual deficits; Z88.5 Allergy status to narcotic agent; Z88.8 Allergy status to other drugs, medicaments and biological substances; Z53.21 Procedure and treatment not carried out due to patient leaving prior to being seen by health care provider
CPT/HCPCS: 36415; 70450; 74177; 80053; 81001; 81025; 82140; 83690; 85025; J1170; J1200; J2405; J2543; J2765; J3360; J7030; Q9967

== ENCOUNTER 2018-02-09 06:36 | Emergency (ER) | payer MEDICAID ==
[2018-02-09 08:02] LABS: Bacteria,Urine 1+ /HPF (Negative); Bilirubin,Urine NEG (Negative); Blood,Urine NEG (Negative); Color,Urine Yellow (Yellow); Mucus,Urine FEW /HPF; Protein,Urine <15 mg/dL mg/dL (Negative); Urobilinogen,Urine < 2.0 mg/dL (<2.0)
[2018-02-09 08:09] LABS: HCG Qualitative,Urine Negative (Negative)
[2018-02-09] MEDS ORDERED: MOTRIN PO ONE (08:19)
[2018-02-09] MEDS ORDERED: DECADRON IM ONE (08:19)
--- NOTE | 2018-02-09 08:22 | Emergency Department Report ---
ED Back Pain/Injury HPI - General Chief Complaint: Extremity Injury, Lower Stated Complaint: R LEG NERVE PAIN Time Seen by Provider: 02/09/18 08:00 Source: patient Limitations: No Limitations - History of Present Illness Initial Comments: This is a 52-year-old female nontoxic, well nourished in appearance, no acute signs of distress presents to the ED with c/o of acute on chronic lower back pain. 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 Patient states has history of sciatica nerve pain which is similar symptoms as today. Patient stated has been diagnosed with "low spine perforating discs". Patient states that pain radiates through to his right lower extremity. Patient denies any trauma. Denies any bladder or bowel instability. Patient denies any urinary symptoms. Denies any fever, chills, nausea, vomiting, headache, stiff neck, chest pain or shortness of breath. Patient denies any numbness or tingling. MD Complaint: back pain -: days(s) (2) Similar Symptoms Previously: Yes Place: home Radiation: right leg Severity: mild Severity scale (0 -10): 8 Quality: crushing Consistency: intermittent Improves With: immobilization, supine, sitting upright Worsens With: movement, walking Context: while lifting, turning/twisting Associated Symptoms: denies: confusion, weakness, chest pain, numbness, difficulty walking, cough, difficulty urinating, diaphoresis, incontinence, fever/chills, constipation, headaches, abdominal pain, loss of appetite, malaise , nausea/vomiting, rash, seizure, shortness of breath, syncope - Related Data Home Medications Medication Instructions Recorded Confirmed Last Taken fentaNYL [Fentanyl] 1 each TD Q72H 12/18/15 03/03/17 03/01/17 Oxycodone HCl [Roxicodone TAB] 30 mg PO QID PRN 06/24/16 03/03/17 03/01/17 Carisoprodol [Soma] 350 mg PO QID 11/08/16 03/03/17 03/01/17 Zolpidem [Ambien] 10 mg PO QHS 11/08/16 03/03/17 03/01/17 Previous Rx's Medication Instructions Recorded Last Taken Type Benzonatate [Tessalon Perles] 100 mg PO Q8HR #30 capsule 01/30/17 03/01/17 Rx Ondansetron [Zofran ODT TAB] 8 mg PO Q8HR #20 tab.rapdis 01/30/17 03/01/17 Rx Cyclobenzaprine [Flexeril] 10 mg PO QHS PRN #10 tablet 02/09/18 Unknown Rx Ibuprofen [Motrin] 600 mg PO Q8H PRN #30 tablet 02/09/18 Unknown Rx Sulfamethoxazole/Trimethoprim 1 each PO BID #14 tablet 02/09/18 Unknown Rx [Bactrim DS TAB] Allergies Allergy/AdvReac Type Severity Reaction Status Date / Time hydrocodone Allergy Vomiting Verified 03/03/17 19:25 ketorolac tromethamine Allergy Anaphylaxis Verified 03/03/17 19:25 [From Toradol] meperidine HCl [From Demerol] Allergy Swelling Verified 03/03/17 19:25 morphine Allergy Rash Verified 03/03/17 19:25 ED Review of Systems ROS: Stated complaint: R LEG NERVE PAIN Other details as noted in HPI Constitutional: denies: chills, fever Eyes: denies: eye pain, eye discharge, vision change ENT: denies: ear pain, throat pain Respiratory: denies: cough, shortness of breath, wheezing Cardiovascular: denies: chest pain, palpitations Endocrine: no symptoms reported Gastrointestinal: denies: abdominal pain, nausea, diarrhea Genitourinary: denies: urgency, dysuria, discharge Musculoskeletal: back pain. denies: joint swelling, arthralgia Skin: denies: rash, lesions Neurological: denies: headache, weakness, paresthesias Psychiatric: denies: anxiety, depression Hematological/Lymphatic: denies: easy bleeding, easy bruising ED Past Medical Hx - Past Medical History Hx Hypertension: Yes Hx Congestive Heart Failure: No Hx Diabetes: No Hx Arthritis: Yes Hx Headaches / Migraines: Yes (Complex) Hx Seizures: No Hx Asthma: No Hx COPD: No Hx Dementia: No Hx HIV: No Additional medical history: Arnold Chiari malformation. ruptured disc in back. TIA. meningitis x6 - Surgical History Hx Cholecystectomy: Yes Additional Surgical History: Arnold-Chiari malformation repaired, cyst removed from left neck - Social History Smoking Status: Current Every Day Smoker Substance Use Type: None - Medications Home Medications: Home Medications Medication Instructions Recorded Confirmed Last Taken Type fentaNYL [Fentanyl] 1 each TD Q72H 12/18/15 03/03/17 03/01/17 History Oxycodone HCl [Roxicodone TAB] 30 mg PO QID PRN 06/24/16 03/03/17 03/01/17 History Carisoprodol [Soma] 350 mg PO QID 11/08/16 03/03/17 03/01/17 History Zolpidem [Ambien] 10 mg PO QHS 11/08/16 03/03/17 03/01/17 History Benzonatate [Tessalon Perles] 100 mg PO Q8HR #30 capsule 01/30/17 03/03/1703/01 Rx Ondansetron [Zofran ODT TAB] 8 mg PO Q8HR #20 tab.rapdis 01/30/17 03/03/1703/01 Rx Cyclobenzaprine [Flexeril] 10 mg PO QHS PRN #10 tablet 02/09/18 Unknown Rx Ibuprofen [Motrin] 600 mg PO Q8H PRN #30 tablet 02/09/18 Unknown Rx Sulfamethoxazole/Trimethoprim 1 each PO BID #14 tablet 02/09/18 Unknown Rx [Bactrim DS TAB] ED Physical Exam - General Limitations: No Limitations General appearance: alert, in no apparent distress - Head Head exam: Present: atraumatic, normocephalic - Eye Eye exam: Present: normal appearance Pupils: Present: normal accommodation - ENT ENT exam: Present: normal exam, mucous membranes moist - Neck Neck exam: Present: normal inspection, full ROM. Absent: tenderness, meningismus, lymphadenopathy - Respiratory Respiratory exam: Present: normal lung sounds bilaterally. Absent: respiratory distress, wheezes, rales, rhonchi, stridor, chest wall tenderness, accessory muscle use, decreased breath sounds, prolonged expiratory - Cardiovascular Cardiovascular Exam: Present: regular rate, normal rhythm, normal heart sounds. Absent: irregular rhythm, systolic murmur, diastolic murmur, rubs, gallop - GI/Abdominal GI/Abdominal exam: Present: soft, normal bowel sounds - Extremities Exam Extremities exam: Present: normal inspection, full ROM, normal capillary refill - Back Exam Back exam: Present: normal inspection, full ROM, paraspinal tenderness (right lumbar paraspinal). Absent: tenderness, CVA tenderness (R), CVA tenderness (L) , muscle spasm, vertebral tenderness, rash noted - Expanded Back Exam Expanded Back exam: Absent: saddle anesthesia Back exam: Negative Straight Leg Raising: Left, Right - Neurological Exam Neurological exam: Present: alert, oriented X3, normal gait - Psychiatric Psychiatric exam: Present: normal affect, normal mood - Skin Skin exam: Present: warm, dry, intact, normal color. Absent: rash ED Course Vital Signs 02/09/18 06:35 Temperature 98.5 F Pulse Rate 111 H Respiratory 18 Rate Blood Pressure 159/100 O2 Sat by Pulse 89 Oximetry - Reevaluation(s) Reevaluation #1: 02/09/18 08:24 Patient is speaking in full sentences with no signs of distress noted. - Consultations Consultation #1: 02/09/18 10:18 Patient has been consulted with Dr. Zaidi about patient history, physical exam , and CT/Xray report and agrees to ED plan of care and discharge plan of care. Consultation #2: 02/09/18 10:24 Patient has been consulted with Dr. Torres about patient history, physical exam , and xray/CT results and stated is an AVN and patient can be discharged with follow-up. He also requested for me to text him pictures of xrays which he confirmed. ED Medical Decision Making - Medical Decision Making This is a 52-year-old female that presents with low back strain and right hip fracture. Patient is stable was examined by me. Patient was consulted with Dr. Zaidi and Dr. Torres (orthopedic). Dr. Torres stated it is an AVN and patient can be discharged with follow-up outpatient. There is no spinal tenderness. There is no cauda equina syndrome during examination. No bladder or bowel instability. UA shows slight UTI. Patient is discahrged with bactrim. Xrays of lumbar and hip within normal limits and dictated by the radiologist. Pt is notified ot he xray report with no questions. Patient received Motrin and Prednisone in the ED which preceded his symptoms has resolved and subsided. Patient is discharged with muscle relaxant and Motrin. Patient was instructed not to operate any machinery while taking muscle relaxant as they cause her drowsiness. Patient was referred to Follow-up with a primary care doctor in 3-5 days or if symptoms worsen and continue return to emergency room as soon as possible. At time of discharge, the patient does not seem toxic or ill in appearance. No acute signs of distress noted. Patient agrees to discharge treatment plan of care. No further questions noted by the patient. This chart is dictated with using [employer] Critical care attestation.: If time is entered above; I have spent that time in minutes in the direct care of this critically ill patient, excluding procedure time. ED Disposition Clinical Impression: AVN (avascular necrosis of bone) Low back strain Qualifiers: Encounter type: initial encounter Qualified Code(s): S39.012A - Strain of muscle, fascia and tendon of lower back, initial encounter Closed right hip fracture Qualifiers: Encounter type: initial encounter Qualified Code(s): S72.001A - Fracture of unspecified part of neck of right femur, initial encounter for closed fracture Disposition: TO HOME OR SELFCARE Is pt being admited?: No Does the pt Need Aspirin: No Condition: Stable Instructions: Pelvic Fracture (ED), RICE Therapy (ED), Cyclobenzaprine (By mouth), Ibuprofen (By mouth) Additional Instructions: Follow-up with your ORTHOPEDIC doctor in 3-5 days or if symptoms worsen such as bladder or bowel stability, chest pain, short of breath, numbness or tingling sensation in extremities, headache, dizziness, visual changes, nausea vomiting, or abdominal pain, return back to emergency room as was possible. Take ibuprofen and Flexeril as prescribed. Do not operate heavy machinery while taking Flexeril due to sedation Prescriptions: Cyclobenzaprine [Flexeril] 10 mg PO QHS PRN #10 tablet PRN Reason: Muscle Spasm Ibuprofen [Motrin] 600 mg PO Q8H PRN #30 tablet PRN Reason: Pain Sulfamethoxazole/Trimethoprim [Bactrim DS TAB] 1 each PO BID #14 tablet Referrals: PRIMARY CAREMD [Primary Care Provider] - 3-5 Days ANALILIA GARCIA MD [Staff Physician] - 3-5 Days [facility] [Outside] - 3-5 Days [facility] [Outside] - 3-5 Days Forms: Work/School Release Form(ED)
[2018-02-09 08:23] VITALS: BP 159/100
[2018-02-09] MEDS ORDERED: DELTASONE PO ONE (08:26)
--- NOTE | 2018-02-09 09:25 | XRay Report ---
FINAL REPORT EXAM: XR HIP 2-3V RT HISTORY: Right hip pain TECHNIQUE: Right hip, two views and AP pelvis PRIORS: None. FINDINGS: There is prominent acetabular spurring. There is some sclerosis and cystic change in the femoral head. There is a defect in the superior femoral head suggestive of a possible osteochondral fracture. I cannot exclude underlying AVN. Right hip joint space is not narrowed. IMPRESSION: Abnormal appearing right femoral head as indicated above. Appearance is worrisome for osteochondral fracture and possible underlying AVN. Consider correlation with MRI or CT.
--- NOTE | 2018-02-09 09:28 | XRay Report ---
FINAL REPORT EXAM: XR SPINE LUMBOSACRAL 2-3V HISTORY: lower back pain TECHNIQUE: Two views of the lumbar spine PRIORS: None. FINDINGS: There is no evidence of acute fracture. Vertebral body heights and alignment are maintained. There is L2-3, L3-4 and L4-5 mild disc space narrowing and moderate endplate spurring. There is multilevel moderate facet arthropathy. IMPRESSION: Multilevel mild degenerative disc disease and moderate facet arthropathy.
--- NOTE | 2018-02-09 10:10 | Cat Scan Report ---
FINAL REPORT EXAM: CT LOWER EXTREMITY RT WO CON HISTORY: right hip pain with abnormal xray TECHNIQUE: CT of the right hip performed. Axial images and coronal and sagittal reformatted images were obtained. PRIORS: None. FINDINGS: There is an osteochondral fracture involving the right femoral head. There is some sclerosis and cystic change in the femoral head. Underlying avascular necrosis suspected. There is moderate marginal spurring involving the acetabulum. There is no dislocation. IMPRESSION: CT confirms osteochondral fracture of femoral head. Underlying avascular necrosis is suspected.
== END 2018-02-09 10:31 | disposition home or self-care (01) ==
LOC: ED 06:36
DX: S72.001A Fracture of unspecified part of neck of right femur, initial encounter for closed fracture (principal); S39.012A Strain of muscle, fascia and tendon of lower back, initial encounter; M87.9 Osteonecrosis, unspecified; I10 Essential (primary) hypertension; M19.90 Unspecified osteoarthritis, unspecified site; G43.909 Migraine, unspecified, not intractable, without status migrainosus; F17.200 Nicotine dependence, unspecified, uncomplicated; Z90.49 Acquired absence of other specified parts of digestive tract; Z86.73 Personal history of transient ischemic attack (TIA), and cerebral infarction without residual deficits; Z88.5 Allergy status to narcotic agent; Z88.8 Allergy status to other drugs, medicaments and biological substances; X58.XXXA Exposure to other specified factors, initial encounter; Y93.89 Activity, other specified; Y99.8 Other external cause status; Y92.098 Other place in other non-institutional residence as the place of occurrence of the external cause
CPT/HCPCS: 72100; 73502; 73700; 81001; 81025; 99284; J1100; J7512

== ENCOUNTER 2018-03-01 19:44 | Emergency (ER) | payer MEDICAID ==
[2018-03-01] MEDS ORDERED: NACL 0.9% 1000 ML 1,000 ML IV ONE (20:14)
[2018-03-01 21:06] LABS: Alanine Aminotransferase 11 units/L (7-56); Albumin 4.5 g/dL (3.9-5); BUN/Creatinine Ratio 13; Blood Urea Nitrogen 9 mg/dL (7-17); Calcium 10.3 mg/dL (8.4-10.2); Hemolysis Index 37
[2018-03-01 21:12] LABS: Basophils # (Auto) 0.2 K/mm3 (0.0-0.1); Basophils % (Auto) 1.4 % (0.0-1.8); Eosinophils # (Auto) 0.1 K/mm3 (0.0-0.4); Eosinophils % (Auto) 0.6 % (0.0-4.3); Hemoglobin 16.2 gm/dl (10.1-14.3); Lymphocytes # (Auto) 2.2 K/mm3 (1.2-5.4); Lymphocytes % (Auto) 19.8 % (13.4-35.0); Mean Corpuscular HGB Conc 35 % (30-34); Mean Corpuscular Hemoglobin 30 pg (28-32); Mean Corpuscular Volume 86 fl (79-97); Monocytes # (Auto) 0.8 K/mm3 (0.0-0.8); Monocytes % (Auto) 7.1 % (0.0-7.3); Platelet Count 393 K/mm3 (140-440); Red Blood Count 5.35 M/mm3 (3.65-5.03); Red Cell Distribution Width 13.9 % (13.2-15.2)
[2018-03-02] MEDS ORDERED: ZOFRAN ORAL LIQ PO ONE (00:36)
[2018-03-02] MEDS ORDERED: TYLENOL PO ONE (00:36)
--- NOTE | 2018-03-02 00:37 | Emergency Department Report ---
ED General Adult HPI - General Chief complaint: Abdominal Pain Stated complaint: VOMITING, RIGHT HIP PAIN Time Seen by Provider: 03/02/18 00:25 Source: patient, RN notes reviewed, old records reviewed Mode of arrival: Ambulatory Limitations: No Limitations - History of Present Illness Initial comments: This is a 52-year-old female whom I have evaluated the past. She has a history of chronic pain and has a pain specialist, also has a history of hypertension, obesity, possible gastroparesis. The patient presents to the ER with a complaint of right hip pain. The patient was seen in this department 3 weeks ago for similar symptoms, and had a CT scan confirmed finding of osteal condyle fracture involving the right femoral head. There was also noted to be sclerosis and 60 change in the right femoral head. The patient was recommended to follow up with an orthopedic surgeon. However, she indicated that her pain specialist recommended that she did not follow-up with an orthopedic surgeon. She reports that she almost fell a few days ago, twisted, and worsened her right hip pain. Her pain is sharp, and increases with palpation and decreases with rest. The patient also reports some nausea and vomiting. She reports not being able to keep her medications down. She can 't recall how many times she has vomited. She has chronic abdominal pain. She denies chest pain, neck pain, severe headache, shortness of breath, and urinary symptoms. -: Sudden Location: right, lower extremity Quality: other Consistency: other Improves with: other Worsens with: other Associated Symptoms: loss of appetite, malaise, nausea/vomiting. denies: confusion, chest pain, cough, diaphoresis, fever/chills, headaches, rash, seizure, shortness of breath, syncope - Related Data Home Medications Medication Instructions Recorded Confirmed Last Taken fentaNYL [Fentanyl] 1 each TD Q72H 12/18/15 03/03/17 03/01/17 Oxycodone HCl [Roxicodone TAB] 30 mg PO QID PRN 06/24/16 03/03/17 03/01/17 Carisoprodol [Soma] 350 mg PO QID 11/08/16 03/03/17 03/01/17 Zolpidem [Ambien] 10 mg PO QHS 11/08/16 03/03/17 03/01/17 Previous Rx's Medication Instructions Recorded Last Taken Type Benzonatate [Tessalon Perles] 100 mg PO Q8HR #30 capsule 01/30/17 03/01/17 Rx Ondansetron [Zofran ODT TAB] 8 mg PO Q8HR #20 tab.rapdis 01/30/17 03/01/17 Rx Cyclobenzaprine [Flexeril] 10 mg PO QHS PRN #10 tablet 02/09/18 Unknown Rx Ibuprofen [Motrin] 600 mg PO Q8H PRN #30 tablet 02/09/18 Unknown Rx Sulfamethoxazole/Trimethoprim 1 each PO BID #14 tablet 02/09/18 Unknown Rx [Bactrim DS TAB] Acetaminophen [Tylenol Arthritis] 650 mg PO Q6HR PRN #30 tablet.er 03/02/18 Unknown Rx Ondansetron [Zofran Odt] 4 mg PO Q8HR PRN #20 tab.rapdis 03/02/18 Unknown Rx Promethazine [Phenergan SUPPOS] 50 mg TN Q6H PRN #20 supp.rect 03/02/18 Unknown Rx Allergies Allergy/AdvReac Type Severity Reaction Status Date / Time hydrocodone Allergy Vomiting Verified 03/03/17 19:25 ketorolac tromethamine Allergy Anaphylaxis Verified 03/03/17 19:25 [From Toradol] meperidine HCl [From Demerol] Allergy Swelling Verified 03/03/17 19:25 morphine Allergy Rash Verified 03/03/17 19:25 ED Review of Systems ROS: Stated complaint: VOMITING, RIGHT HIP PAIN Other details as noted in HPI Constitutional: malaise. denies: fever Eyes: denies: vision change ENT: denies: epistaxis Respiratory: denies: cough Cardiovascular: denies: chest pain Gastrointestinal: abdominal pain, nausea, vomiting Genitourinary: denies: urgency, dysuria Musculoskeletal: back pain, arthralgia Neurological: weakness Psychiatric: anxiety ED Past Medical Hx - Past Medical History Hx Hypertension: Yes Hx Congestive Heart Failure: No Hx Diabetes: No Hx Arthritis: Yes Hx Headaches / Migraines: Yes (Complex) Hx Seizures: No Hx Asthma: No Hx COPD: No Hx Dementia: No Hx HIV: No Additional medical history: Arnold Chiari malformation. ruptured disc in back. TIA. meningitis x6 - Surgical History Hx Cholecystectomy: Yes Additional Surgical History: Arnold-Chiari malformation repaired, cyst removed from left neck - Social History Smoking Status: Current Every Day Smoker Substance Use Type: None - Medications Home Medications: Home Medications Medication Instructions Recorded Confirmed Last Taken Type fentaNYL [Fentanyl] 1 each TD Q72H 12/18/15 03/03/17 03/01/17 History Oxycodone HCl [Roxicodone TAB] 30 mg PO QID PRN 06/24/16 03/03/17 03/01/17 History Carisoprodol [Soma] 350 mg PO QID 11/08/16 03/03/17 03/01/17 History Zolpidem [Ambien] 10 mg PO QHS 11/08/16 03/03/17 03/01/17 History Benzonatate [Tessalon Perles] 100 mg PO Q8HR #30 capsule 01/30/17 03/03/1703/01 Rx Ondansetron [Zofran ODT TAB] 8 mg PO Q8HR #20 tab.rapdis 01/30/17 03/03/1703/01 Rx Cyclobenzaprine [Flexeril] 10 mg PO QHS PRN #10 tablet 02/09/18 Unknown Rx Ibuprofen [Motrin] 600 mg PO Q8H PRN #30 tablet 02/09/18 Unknown Rx Sulfamethoxazole/Trimethoprim 1 each PO BID #14 tablet 02/09/18 Unknown Rx [Bactrim DS TAB] Acetaminophen [Tylenol Arthritis] 650 mg PO Q6HR PRN #30 tablet.er 03/02/18 Unknown Rx Ondansetron [Zofran Odt] 4 mg PO Q8HR PRN #20 tab.rapdis 03/02/18 Unknown Rx Promethazine [Phenergan SUPPOS] 50 mg TN Q6H PRN #20 supp.rect 03/02/18 Unknown Rx ED Physical Exam - General Limitations: No Limitations General appearance: alert, in no apparent distress - Head Head exam: Present: atraumatic, normocephalic - Eye Eye exam: Present: normal appearance, EOMI. Absent: nystagmus - ENT ENT exam: Present: normal exam, normal orophraynx, mucous membranes moist, normal external ear exam - Neck Neck exam: Present: normal inspection, full ROM. Absent: tenderness, meningismus - Respiratory Respiratory exam: Present: normal lung sounds bilaterally. Absent: respiratory distress, chest wall tenderness - Cardiovascular Cardiovascular Exam: Present: regular rate, normal rhythm, normal heart sounds. Absent: bradycardia, tachycardia, irregular rhythm, systolic murmur, diastolic murmur, rubs, gallop - GI/Abdominal GI/Abdominal exam: Present: soft. Absent: distended, tenderness, guarding, rebound, rigid, pulsatile mass - Extremities Exam Extremities exam: Present: normal inspection, tenderness (the right proximal femur is tender.), normal capillary refill, other (2+ pulses noted in the bilateral upper, lower extremities. Compartments soft. No long bony tenderness. The pelvis is stable.). Absent: pedal edema, joint swelling, calf tenderness - Back Exam Back exam: Present: normal inspection, full ROM. Absent: tenderness, CVA tenderness (R), paraspinal tenderness, vertebral tenderness - Neurological Exam Neurological exam: Present: alert, oriented X3, CN II-XII intact, normal gait, other (Extraocular movements intact. Tongue midline. No facial droop. Facial sensation intact to light touch in the V1, V2, V3 distribution bilaterally. 5 and 5 strength in 4 extremities.. Sensation is intact to light touch in 4 extremities.). Absent: motor sensory deficit - Psychiatric Psychiatric exam: Present: anxious - Skin Skin exam: Present: warm, dry, intact, normal color. Absent: rash ED Course Vital Signs 03/01/18 20:08 Temperature 98.4 F Pulse Rate 97 H Respiratory 16 Rate Blood Pressure 196/117 O2 Sat by Pulse 97 Oximetry ED Medical Decision Making - Lab Data Result diagrams: 03/01/18 20:46 03/01/18 20:46 Vital Signs 03/01/18 20:08 Temperature 98.4 F Pulse Rate 97 H Respiratory 16 Rate Blood Pressure 196/117 O2 Sat by Pulse 97 Oximetry Lab Results 03/01/18 03/01/18 Range/Units 20:46 20:46 WBC 10.9 (4.5-11.0) K/mm3 RBC 5.35 H (3.65-5.03) M/mm3 Hgb 16.2 H (10.1-14.3) gm/dl Hct 46.0 H (30.3-42.9) % MCV 86 (79-97) fl MCH 30 (28-32) pg MCHC 35 H (30-34) % RDW 13.9 (13.2-15.2) % Plt Count 393 (140-440) K/mm3 Lymph % (Auto) 19.8 (13.4-35.0) % [place] % (Auto) 7.1 (0.0-7.3) % Eos % (Auto) 0.6 (0.0-4.3) % Baso % (Auto) 1.4 (0.0-1.8) % Lymph # 2.2 (1.2-5.4) K/mm3 [place] # 0.8 (0.0-0.8) K/mm3 Eos # 0.1 (0.0-0.4) K/mm3 Baso # 0.2 H (0.0-0.1) K/mm3 Seg Neutrophils % 71.1 H (40.0-70.0) % Seg Neutrophils # 7.7 (1.8-7.7) K/mm3 Sodium 138 (137-145) mmol/L Potassium 4.0 (3.6-5.0) mmol/L Chloride 101.6 (98-107) mmol/L Carbon Dioxide 24 (22-30) mmol/L Anion Gap 16 mmol/L BUN 9 (7-17) mg/dL Creatinine 0.7 (0.7-1.2) mg/dL Estimated GFR > 60 ml/min BUN/Creatinine Ratio 13 % Glucose 109 H (65-100) mg/dL Calcium 10.3 H (8.4-10.2) mg/dL Total Bilirubin 0.20 (0.1-1.2) mg/dL AST 13 (5-40) units/L ALT 11 (7-56) units/L Alkaline Phosphatase 143 H (35-129) units/L Total Protein 8.0 (6.3-8.2) g/dL Albumin 4.5 (3.9-5) g/dL Albumin/Globulin Ratio 1.3 % - EKG Data 03/02/18 01:47 Sinus, 81 bpm, QTC, TN interval appropriate, motion artifact, borderline left axis deviation, abnormal EKG, not a STEMI, appears unchanged from prior EKG from 2017 - Radiology Data Radiology results: report reviewed, image reviewed CT scan report from February 09 interpretation is reviewed and appreciated - Medical Decision Making Differential diagnosis, including but not limited to: Cyclic vomiting syndrome, narcotic bowel syndrome, gastroparesis, malingering, subacute right-sided femur fracture Assessment and plan: 52-year-old female with 2 complaints. She does not require additional imaging of her hip or lower extremity at this time, she walks with a slight limp. She had a CT scan which has already suggeSted a fracture of the femoral head. She will be made nonweightbearing in the right lower extremity, this fracture is over 2 weeks old, and she was instructed to follow up with orthopedics. I have not personally witnessed the patient vomited. The nurse caring for the patient indicates the patient is occasionally trying to make herself vomit. A few times the patient has spit up, but she has not had active vomiting. Her elevated blood pressure is appreciated. Please reference the [employer] clinical policy on hypertension that is not symptomatic. The patient can follow up with her primary care doctor for her elevated blood pressure. She'll be discharged with nonnarcotic pain medication , Zofran, and Phenergan suppositories. Crutches will be provided, and she will be given referrals to outpatient primary care, orthopedic Critical care attestation.: If time is entered above; I have spent that time in minutes in the direct care of this critically ill patient, excluding procedure time. ED Disposition Clinical Impression: Chronic abdominal pain, Uncontrolled hypertension Femur fracture, right Qualifiers: Encounter type: subsequent encounter Femur location: unspecified portion of femur Fracture type: closed Fracture morphology: unspecified fracture morphology Disposition: DC-01 TO HOME OR SELFCARE Is pt being admited?: No Does the pt Need Aspirin: No Condition: Stable Instructions: Hypertension (ED), Leg Fracture (ED) Additional Instructions: Remain nonweightbearing in the right lower extremity and use the crutches as directed. Follow up with the orthopedic surgeon within the next 5-7 days. Take the pain medication, nausea medication as needed/directed. Please note that blood pressure was elevated. This should be followed up by her primary care doctor within the next month. Long-term complications of hypertension and elevated blood pressure includes stroke, disability, paralysis, loss of quality of life. Return to the ER right away with new pain, worsened pain, migration of pain, projectile vomiting, change in mental status, confusion, inability to tolerate liquid feedings. Prescriptions: Acetaminophen [Tylenol Arthritis] 650 mg PO Q6HR PRN #30 tablet.er PRN Reason: Pain Ondansetron [Zofran Odt] 4 mg PO Q8HR PRN #20 tab.rapdis PRN Reason: Nausea Promethazine [Phenergan SUPPOS] 50 mg TN Q6H PRN #20 supp.rect PRN Reason: Nausea Referrals: PRIMARY CARE, [Primary Care Provider] - 3-5 Days CONNOR WALKER MD [Staff Physician] - 3-5 Days WHIT JAUREGUI MD [Staff Physician] - 3-5 Days
[2018-03-02 02:00] VITALS: BP 145/75
== END 2018-03-02 01:59 | disposition home or self-care (01) ==
LOC: ED 19:44
DX: S72.91XG Unspecified fracture of right femur, subsequent encounter for closed fracture with delayed healing (principal); X58.XXXD Exposure to other specified factors, subsequent encounter; R10.9 Unspecified abdominal pain; G89.29 Other chronic pain; I10 Essential (primary) hypertension; Z88.6 Allergy status to analgesic agent; Z88.8 Allergy status to other drugs, medicaments and biological substances; M19.90 Unspecified osteoarthritis, unspecified site; F17.200 Nicotine dependence, unspecified, uncomplicated; Z90.49 Acquired absence of other specified parts of digestive tract
CPT/HCPCS: 36415; 80053; 85025; 93005; 93010; 99284; J7030; Q0162

== ENCOUNTER 2018-03-02 02:17 | Emergency (ER) | payer MEDICAID ==
[2018-03-02] MEDS ORDERED: NACL 0.9% 1000 ML 1,000 ML IV ONE (08:10)
[2018-03-02] MEDS ORDERED: ZOFRAN IV ONE ×2 (08:10→10:00)
[2018-03-02] MEDS ORDERED: CATAPRES PO ONE (08:10)
--- NOTE | 2018-03-02 08:53 | Emergency Department Report ---
ED N/V/D HPI - General Chief complaint: Nausea/Vomiting/Diarrhea Stated complaint: VOMITING, BACK AND RIGHT HIP PAIN Time Seen by Provider: 03/02/18 08:10 Source: patient Mode of arrival: Ambulatory Limitations: No Limitations - History of Present Illness Initial comments: This is a 52-year-old female nontoxic, well nourished in appearance, no acute signs of distress presents to the ED with c/o of nausea and vomiting 2 days. Patient was seen in the ED last night and was discharged and patient stated that nausea vomiting has never resolved and patient resigned in. Patient describes vomiting as food content. Patient also stated has some diffuse abdominal pain mainly during vomiting. Patient denies any radiation of pain. Patient denies any chest pain, short of breath, fever, chills, headache, stiff neck, numbness or tingling. Patient denies any diarrhea or constipation. Patient denies any recent travels. PMH includes arthritis, complex headaches, hypertension, Chiari malformation. MD complaint: nausea, vomiting -: days(s) (2) Description of Vomiting: food contents Associated Abdominal Pain: Yes Location: diffuse Radiation: none Severity: mild Pain Scale: 3 Quality: cramping Consistency: intermittent Improves with: none Worsens with: none Associated Symptoms: nausea/vomiting. denies: myalgias, chest pain, cough, diaphoresis, fever/chills, headaches, loss of appetite, malaise, rash, dysuria, shortness of breath, syncope, weakness - Related Data Home Medications Medication Instructions Recorded Confirmed Last Taken fentaNYL [Fentanyl] 1 each TD Q72H 12/18/15 03/03/17 03/01/17 Oxycodone HCl [Roxicodone TAB] 30 mg PO QID PRN 06/24/16 03/03/17 03/01/17 Carisoprodol [Soma] 350 mg PO QID 11/08/16 03/03/17 03/01/17 Zolpidem [Ambien] 10 mg PO QHS 11/08/16 03/03/17 03/01/17 Previous Rx's Medication Instructions Recorded Last Taken Type Benzonatate [Tessalon Perles] 100 mg PO Q8HR #30 capsule 01/30/17 03/01/17 Rx Ondansetron [Zofran ODT TAB] 8 mg PO Q8HR #20 tab.rapdis 01/30/17 03/01/17 Rx Cyclobenzaprine [Flexeril] 10 mg PO QHS PRN #10 tablet 02/09/18 Unknown Rx Ibuprofen [Motrin] 600 mg PO Q8H PRN #30 tablet 02/09/18 Unknown Rx Sulfamethoxazole/Trimethoprim 1 each PO BID #14 tablet 02/09/18 Unknown Rx [Bactrim DS TAB] Acetaminophen [Tylenol Arthritis] 650 mg PO Q6HR PRN #30 tablet.er 03/02/18 Unknown Rx Ondansetron [Zofran Odt] 4 mg PO Q8HR PRN #20 tab.rapdis 03/02/18 Unknown Rx Promethazine [Phenergan SUPPOS] 50 mg PA Q6H PRN #20 supp.rect 03/02/18 Unknown Rx amLODIPine [Norvasc] 5 mg PO DAILY #30 tab 03/02/18 Unknown Rx Allergies Allergy/AdvReac Type Severity Reaction Status Date / Time hydrocodone Allergy Vomiting Verified 03/03/17 19:25 ketorolac tromethamine Allergy Anaphylaxis Verified 03/03/17 19:25 [From Toradol] meperidine HCl [From Demerol] Allergy Swelling Verified 03/03/17 19:25 morphine Allergy Rash Verified 03/03/17 19:25 ED Review of Systems ROS: Stated complaint: VOMITING, BACK AND RIGHT HIP PAIN Other details as noted in HPI Constitutional: denies: chills, fever Eyes: denies: eye pain, eye discharge, vision change ENT: denies: ear pain, throat pain Respiratory: denies: cough, shortness of breath, wheezing Cardiovascular: denies: chest pain, palpitations Endocrine: no symptoms reported Gastrointestinal: abdominal pain, nausea, vomiting. denies: diarrhea, constipation, hematemesis, melena, hematochezia Genitourinary: denies: urgency, dysuria, discharge Musculoskeletal: denies: back pain, joint swelling, arthralgia Skin: denies: rash, lesions Neurological: denies: headache, weakness, paresthesias Psychiatric: denies: anxiety, depression Hematological/Lymphatic: denies: easy bleeding, easy bruising ED Past Medical Hx - Past Medical History Previous Medical History?: Yes Hx Hypertension: Yes Hx Congestive Heart Failure: No Hx Diabetes: No Hx Arthritis: Yes Hx Headaches / Migraines: Yes (Complex) Hx Seizures: No Hx Asthma: No Hx COPD: No Hx Dementia: No Hx HIV: No Additional medical history: Arnold Chiari malformation. ruptured disc in back. TIA. meningitis x6 - Surgical History Past Surgical History?: Yes Hx Cholecystectomy: Yes Additional Surgical History: Arnold-Chiari malformation repaired, cyst removed from left neck - Social History Smoking Status: Never Smoker Substance Use Type: None - Medications Home Medications: Home Medications Medication Instructions Recorded Confirmed Last Taken Type fentaNYL [Fentanyl] 1 each TD Q72H 12/18/15 03/03/17 03/01/17 History Oxycodone HCl [Roxicodone TAB] 30 mg PO QID PRN 06/24/16 03/03/17 03/01/17 History Carisoprodol [Soma] 350 mg PO QID 11/08/16 03/03/17 03/01/17 History Zolpidem [Ambien] 10 mg PO QHS 11/08/16 03/03/17 03/01/17 History Benzonatate [Tessalon Perles] 100 mg PO Q8HR #30 capsule 01/30/17 03/03/1703/01 Rx Ondansetron [Zofran ODT TAB] 8 mg PO Q8HR #20 tab.rapdis 01/30/17 03/03/1703/01 Rx Cyclobenzaprine [Flexeril] 10 mg PO QHS PRN #10 tablet 02/09/18 Unknown Rx Ibuprofen [Motrin] 600 mg PO Q8H PRN #30 tablet 02/09/18 Unknown Rx Sulfamethoxazole/Trimethoprim 1 each PO BID #14 tablet 02/09/18 Unknown Rx [Bactrim DS TAB] Acetaminophen [Tylenol Arthritis] 650 mg PO Q6HR PRN #30 tablet.er 03/02/18 Unknown Rx Ondansetron [Zofran Odt] 4 mg PO Q8HR PRN #20 tab.rapdis 03/02/18 Unknown Rx Promethazine [Phenergan SUPPOS] 50 mg PA Q6H PRN #20 supp.rect 03/02/18 Unknown Rx amLODIPine [Norvasc] 5 mg PO DAILY #30 tab 03/02/18 Unknown Rx ED Physical Exam - General Limitations: No Limitations General appearance: alert, in no apparent distress - Head Head exam: Present: atraumatic, normocephalic - Eye Eye exam: Present: normal appearance Pupils: Present: normal accommodation - ENT ENT exam: Present: normal exam, mucous membranes moist - Neck Neck exam: Present: normal inspection, full ROM. Absent: tenderness, meningismus, lymphadenopathy - Respiratory Respiratory exam: Present: normal lung sounds bilaterally. Absent: respiratory distress, wheezes, rales, rhonchi, stridor, chest wall tenderness, accessory muscle use, decreased breath sounds, prolonged expiratory - Cardiovascular Cardiovascular Exam: Present: regular rate, normal rhythm, normal heart sounds. Absent: bradycardia, tachycardia, irregular rhythm, systolic murmur, diastolic murmur, rubs, gallop - GI/Abdominal GI/Abdominal exam: Present: soft, tenderness (diffuse), normal bowel sounds. Absent: distended, guarding, rebound, rigid, diminished bowel sounds - Expanded GI/Abdominal Exam Expanded GI/Abdominal exam: Absent: psoas sign, obturator sign, heel tap sign, Hernandes's sign, Rovsing's sign, tenderness at Mcburney's Point, ascites - Rectal Rectal exam: Present: deferred - Extremities Exam Extremities exam: Present: normal inspection, full ROM, normal capillary refill. Absent: tenderness - Back Exam Back exam: Present: normal inspection, full ROM. Absent: tenderness, CVA tenderness (R), CVA tenderness (L), muscle spasm, paraspinal tenderness, vertebral tenderness, rash noted - Neurological Exam Neurological exam: Present: alert, oriented X3, normal gait - Psychiatric Psychiatric exam: Present: normal affect, normal mood - Skin Skin exam: Present: warm, dry, intact, normal color. Absent: rash ED Course Vital Signs 03/02/18 03/02/18 03/02/18 04:31 08:30 08:40 Temperature 98 F 98.9 F Pulse Rate 80 103 H 103 H Respiratory 18 20 Rate Blood Pressure 206/110 206/121 Blood Pressure 206/121 [Right] O2 Sat by Pulse 98 100 Oximetry 03/02/18 03/02/18 10:46 11:48 Temperature Pulse Rate 104 H 73 Respiratory Rate Blood Pressure 174/84 141/97 Blood Pressure [Right] O2 Sat by Pulse 96 Oximetry - Reevaluation(s) Reevaluation #1: 03/02/18 08:54 Patient is speaking in full sentences with no signs of distress noted. Reevaluation #2: 03/02/18 10:16 As per Lashanda SOLANO, the patient has been observed by RN putting fingers in mouth to make herself gag and vomit. RN also stated that patient has been "messing with the IV". Patient is in CT scan now with no signs of distress. Reevaluation #3: 03/02/18 11:29 Patient is resting comfortably with no nausea or vomiting noted. When approached patient, patient stated her symptoms has resolved after Zofran 8MG, Reglan 10, Ativan and Dilaudid. - Consultations Consultation #1: 03/02/18 12:42 Patient has been consulted with Dr. Amilcar V about patient history, physical exam, and labs/CT results and agrees to ED plan of care and discharge plan of care. ED Medical Decision Making - Medical Decision Making This is a 52-year-old female that presents with nausea and vomiting and HTN. Patient is stable and was examined by me. There is slight abdominal tenderness. Negative signs of symptoms of appendicitis. Labs obtained. UA obtained. Ct abdomen with contrast obtained and dictated by the radiologist. Patient is notified of the report with no questions noted by the patient. Vital signs are stable prior to discharge. Patient received Regalan, Zofran, Ativan and Dilaudid and 1L Normal saline in the ED which patient stated symptoms has resovled and subsided. A by mouth challenge has been obtained and patient tolerated well with no nausea vomiting. Patient stated that she does nt take anything for blood pressure. Patient is treated with Catapres in the ED.b Blood pressure decreased within normal limits. Patient was notified of strict precatuions of appendictis symptoms and to return to the ED if symptoms occurs as soon as possible. Patient was also instructed to Follow-up with a primary care doctor in 3-5 days or if symptoms worsen and continue return to emergency room as soon as possible. At time of discharge, the patient does not seem toxic or ill in appearance. No acute signs of distress noted. Patient agrees to discharge treatment plan of care. No further questions noted by the patient. Patient was just previously discharged with Zofran, Phenergan and Tylenol arthritis and has not yet filled it. Patient stated she has the current prescriptions. Critical care attestation.: If time is entered above; I have spent that time in minutes in the direct care of this critically ill patient, excluding procedure time. ED Disposition Clinical Impression: Hypertension Qualifiers: Hypertension type: unspecified Qualified Code(s): I10 - Essential (primary) hypertension Nausea & vomiting Qualifiers: Vomiting type: unspecified Vomiting Intractability: non-intractable Qualified Code(s): R11.2 - Nausea with vomiting, unspecified Abdominal pain Qualifiers: Abdominal location: generalized Qualified Code(s): R10.84 - Generalized abdominal pain Disposition: TO HOME OR SELFCARE Is pt being admited?: No Does the pt Need Aspirin: No Condition: Stable Instructions: Amlodipine (By mouth), Hypertension (ED) Additional Instructions: Follow-up with a primary care doctor in 3-5 days or if symptoms worsen and continue return to emergency room as soon as possible. Please fill the medications that you have been provided this morning during your previous ED visit. Keep a daily dairy of your blood pressure and present to your primary care doctor. Prescriptions: amLODIPine [Norvasc] 5 mg PO DAILY #30 tab Referrals: PRIMARY MD NAE [Primary Care Provider] - 3-5 Days ANALILIA GARCIA MD [Staff Physician] - 3-5 Days SHAVONNE MOHR MD [Staff Physician] - 3-5 Days [facility] [Outside] - 3-5 Days
[2018-03-02] MEDS ORDERED: DILAUDID IV ONE (09:34)
[2018-03-02] MEDS ORDERED: APRESOLINE IV ONE (09:37)
[2018-03-02] MEDS ORDERED: REGLAN IV ONE (10:00)
[2018-03-02] MEDS ORDERED: ATIVAN IV ONE (10:02)
[2018-03-02 10:37] LABS: Alanine Aminotransferase 10 units/L (7-56); Albumin 3.9 g/dL (3.9-5); Lipase 18 units/L (13-60)
[2018-03-02 10:38] LABS: Bilirubin,Direct < 0.2 mg/dL (0-0.2)
[2018-03-02 11:09] LABS: Bilirubin,Urine NEG (Negative); Blood,Urine NEG (Negative); Color,Urine Yellow (Yellow); Mucus,Urine FEW /HPF; Protein,Urine <15 mg/dL mg/dL (Negative); Urobilinogen,Urine < 2.0 mg/dL (<2.0)
--- NOTE | 2018-03-02 12:28 | Cat Scan Report ---
FINAL REPORT EXAM: CT ABDOMEN PELVIS W CON HISTORY: nausea vomiting abdominal pain COMPARISON: CT of the abdomen and pelvis performed on 03/03/2017 TECHNIQUE: Multiple contiguous axial images were obtained from the lung bases to the pubic symphysis after administration of IV contrast. Reformatted sagittal and coronal images were available for review. FINDINGS: Lung bases: Normal. Visualized heart and mediastinum: Normal. Liver: Normal. Spleen: Normal. Pancreas: Normal. Gallbladder and Biliary Tree: The gallbladder has been surgically removed. No biliary ductal dilatation. Adrenal glands: Normal. Kidneys: Stable small left renal cortical cysts measuring up to 2.5 centimeters. No hydronephrosis. Symmetric enhancement to both kidneys. Bladder: Normal. Pelvic organs: Calcified fibroids within the uterus. Bowel: No focal wall thickening. No evidence of obstruction. Appendix is normal in caliber without surrounding inflammatory change. Large amount of stool in the colon. Peritoneum: No significant mesenteric adenopathy. No free air or free fluid. Vasculature: Abdominal aorta is normal in caliber without evidence of aneurysm. Scattered atherosclerotic calcifications. Normal appearance of the portal venous system and the inferior vena cava. Bones and soft tissues: No suspicious osseous lesions.Degenerative changes of the spine. Soft tissues are normal. IMPRESSION: No acute intra-abdominal pathology. No bowel obstruction. Normal appendix. Large amount of stool within the colon.
[2018-03-02 13:04] VITALS: BP 143/70
== END 2018-03-02 13:10 | disposition home or self-care (01) ==
LOC: ED 02:17
DX: I10 Essential (primary) hypertension (principal); R11.2 Nausea with vomiting, unspecified; R10.84 Generalized abdominal pain; M19.90 Unspecified osteoarthritis, unspecified site; G43.909 Migraine, unspecified, not intractable, without status migrainosus; Z86.73 Personal history of transient ischemic attack (TIA), and cerebral infarction without residual deficits; Z90.49 Acquired absence of other specified parts of digestive tract; Z88.5 Allergy status to narcotic agent
CPT/HCPCS: 36415; 74177; 80074; 81001; 82150; 83690; 96361; 96374; 96375; 96376; 99284; J0360; J1170; J2060; J2405; J2765; J7030; Q9967

== ENCOUNTER 2019-01-14 19:33 | Emergency (ER) | payer MEDICAID, SELFPAY ==
--- NOTE | 2019-01-14 20:31 | Event Note ---
ED Screening Note Date of service: 01/14/19 Time: 20:27 ED Screening Note: 53 y/o female comes in abd pain with n/v/d times 4 days. This initial assessment/diagnostic orders/clinical plan/treatment(s) is/are subject to change based on patients health status, clinical progression and re-assessment by fellow clinical providers in the ED. Further treatment and workup at subsequent clinical providers discretion. Patient/guardian urged not to elope from the ED as their condition may be serious if not clinically assessed and managed. Initial orders include:
[2019-01-14 20:50] LABS: Basophils % (Auto) 0.5 % (0.0-1.8); Eosinophils # (Auto) 0.1 K/mm3 (0.0-0.4); Hematocrit 44.3 % (30.3-42.9); Hemoglobin 15.2 gm/dl (10.1-14.3); Lymphocytes # (Auto) 1.1 K/mm3 (1.2-5.4); Lymphocytes % (Auto) 19.3 % (13.4-35.0); Mean Corpuscular HGB Conc 34 % (30-34); Mean Corpuscular Volume 90 fl (79-97); Monocytes # (Auto) 0.6 K/mm3 (0.0-0.8); Monocytes % (Auto) 10.6 % (0.0-7.3); Platelet Count 294 K/mm3 (140-440); Red Blood Count 4.91 M/mm3 (3.65-5.03); Red Cell Distribution Width 13.6 % (13.2-15.2)
[2019-01-14 21:10] LABS: Alanine Aminotransferase 219 units/L (7-56); Albumin 3.9 g/dL (3.9-5); BUN/Creatinine Ratio 17; Blood Urea Nitrogen 10 mg/dL (7-17); Hemolysis Index 7
[2019-01-14 21:12] LABS: Bilirubin,Urine MOD (Negative); Blood,Urine NEG (Negative); Color,Urine Amber (Yellow); Mucus,Urine FEW /HPF
[2019-01-14] MEDS ORDERED: NACL 0.9% 1000 ML 1,000 ML IV ONE (21:19)
[2019-01-14] MEDS ORDERED: ZOFRAN IV ONE (21:19)
[2019-01-14 21:20] LABS: Ictotest,Urine Positive (Negative)
[2019-01-14] MEDS ORDERED: ZOFRAN ONE (23:44)
--- NOTE | 2019-01-14 23:47 | Ultrasound Report ---
ULTRASOUND ABDOMEN, COMPLETE INDICATION: n/v with abnormal liver enzymes. COMPARISON: None available. FINDINGS: Pancreas: Not well visualized. No obvious abnormality. Abdominal Aorta: Normal. IVC: Normal. Liver: Normal. Gallbladder: Prior cholecystectomy Bile ducts: Normal. Common Bile Duct measures 2 mm. Right Kidney: Normal size and echotexture. There are a few small simple cyst noted as well as a few i ntrarenal calculi measuring 5 mm Left Kidney: Normal. Small cyst is present in the left kidney measuring 1.4 cm. Spleen: Normal. Free fluid: None. Additional Findings: None. IMPRESSION: 1. No acute sonographic abnormality of the abdomen. 2. No etiology to account for the patient's elevated liver enzymes. 3. Small bilateral simple renal cysts. 4. A few small right intrarenal calcifications are present, most likely representing nonobstructing i ntrarenal calculi. Signer Name: Jamee Brito MD Signed: 01/14/2019 11:42 PM Workstation Name: [id number]
[2019-01-14] MEDS ORDERED: DILAUDID ONE (23:48)
[2019-01-14] MEDS ORDERED: DILAUDID IV ONE (23:50)
--- NOTE | 2019-01-15 00:32 | Emergency Department Report ---
ED N/V/D HPI - General Chief complaint: Nausea/Vomiting/Diarrhea Stated complaint: N/V/D Time Seen by Provider: 01/14/19 21:08 Source: patient Mode of arrival: Ambulatory Limitations: No Limitations - History of Present Illness Initial comments: This is a 53-year-old female nontoxic, well nourished in appearance, no acute signs of distress presents to the ED with c/o of nausea and vomiting and diarrhea 4 days. Patient describes vomiting as food content. Patient denies any abdominal pain, chest pain, short of breath, fever, chills, headache, stiff neck, numbness or tingling. Patient denies any diarrhea or constipation. Patient denies any recent travels. Patient stated past medical history of headaches, Arnold-Chiari malformation, and meningitis. MD complaint: nausea, vomiting, diarrhea -: days(s) (4) Associated Abdominal Pain: No Radiation: none Severity: mild Pain Scale: 0 Improves with: none Worsens with: none Associated Symptoms: nausea/vomiting. denies: myalgias, chest pain, cough, diaphoresis, fever/chills, headaches, loss of appetite, malaise, rash, dysuria, shortness of breath, syncope, weakness - Related Data Home Medications Medication Instructions Recorded Confirmed Last Taken fentaNYL [Fentanyl] 1 each TD Q72H 12/18/15 03/03/17 03/01/17 Oxycodone HCl [Roxicodone TAB] 30 mg PO QID PRN 06/24/16 03/03/17 03/01/17 Carisoprodol [Soma] 350 mg PO QID 11/08/16 03/03/17 03/01/17 Zolpidem [Ambien] 10 mg PO QHS 11/08/16 03/03/17 03/01/17 Previous Rx's Medication Instructions Recorded Last Taken Type Benzonatate [Tessalon Perles] 100 mg PO Q8HR #30 capsule 01/30/17 03/01/17 Rx Ondansetron [Zofran ODT TAB] 8 mg PO Q8HR #20 tab.rapdis 01/30/17 03/01/17 Rx Cyclobenzaprine [Flexeril] 10 mg PO QHS PRN #10 tablet 02/09/18 Unknown Rx Ibuprofen [Motrin] 600 mg PO Q8H PRN #30 tablet 02/09/18 Unknown Rx Sulfamethoxazole/Trimethoprim 1 each PO BID #14 tablet 02/09/18 Unknown Rx [Bactrim DS TAB] Acetaminophen [Tylenol Arthritis] 650 mg PO Q6HR PRN #30 tablet.er 03/02/18 Unknown Rx Ondansetron [Zofran Odt] 4 mg PO Q8HR PRN #20 tab.rapdis 03/02/18 Unknown Rx Promethazine [Phenergan SUPPOS] 50 mg AL Q6H PRN #20 supp.rect 03/02/18 Unknown Rx amLODIPine [Norvasc] 5 mg PO DAILY #30 tab 03/02/18 Unknown Rx Ondansetron [Zofran Odt] 4 mg PO Q8HR PRN #20 tab.rapdis 01/15/19 Unknown Rx amLODIPine [Norvasc] 5 mg PO DAILY #30 tab 01/15/19 Unknown Rx Allergies Allergy/AdvReac Type Severity Reaction Status Date / Time hydrocodone Allergy Vomiting Verified 01/14/19 20:25 ketorolac tromethamine Allergy Anaphylaxis Verified 01/14/19 20:25 [From Toradol] meperidine HCl [From Demerol] Allergy Swelling Verified 01/14/19 20:25 morphine Allergy Rash Verified 01/14/19 20:25 ED Review of Systems ROS: Stated complaint: N/V/D Other details as noted in HPI Constitutional: denies: chills, fever Eyes: denies: eye pain, eye discharge, vision change ENT: denies: ear pain, throat pain Respiratory: denies: cough, shortness of breath, wheezing Cardiovascular: denies: chest pain, palpitations Endocrine: no symptoms reported Gastrointestinal: nausea, vomiting, diarrhea. denies: abdominal pain, constipation Genitourinary: denies: urgency, dysuria, discharge Musculoskeletal: denies: back pain, joint swelling, arthralgia Skin: denies: rash, lesions Neurological: denies: headache, weakness, paresthesias Psychiatric: denies: anxiety, depression Hematological/Lymphatic: denies: easy bleeding, easy bruising ED Past Medical Hx - Past Medical History Previous Medical History?: Yes Hx Hypertension: No Hx Congestive Heart Failure: No Hx Diabetes: No Hx Arthritis: No Hx Headaches / Migraines: Yes (Complex) Hx Seizures: No Hx Asthma: No Hx COPD: No Hx Dementia: No Hx HIV: No Additional medical history: Arnold Chiari malformation. ruptured disc in back. TIA. meningitis x6 - Surgical History Past Surgical History?: Yes Hx Cholecystectomy: Yes Additional Surgical History: Arnold-Chiari malformation repaired, cyst removed from left neck - Social History Smoking Status: Never Smoker Substance Use Type: None - Medications Home Medications: Home Medications Medication Instructions Recorded Confirmed Last Taken Type fentaNYL [Fentanyl] 1 each TD Q72H 12/18/15 03/03/17 03/01/17 History Oxycodone HCl [Roxicodone TAB] 30 mg PO QID PRN 06/24/16 03/03/17 03/01/17 History Carisoprodol [Soma] 350 mg PO QID 11/08/16 03/03/17 03/01/17 History Zolpidem [Ambien] 10 mg PO QHS 11/08/16 03/03/17 03/01/17 History Benzonatate [Tessalon Perles] 100 mg PO Q8HR #30 capsule 01/30/17 03/03/17 03/01/17 Rx Ondansetron [Zofran ODT TAB] 8 mg PO Q8HR #20 tab.rapdis 01/30/17 03/03/17 03/01/17 Rx Cyclobenzaprine [Flexeril] 10 mg PO QHS PRN #10 tablet 02/09/18 Unknown Rx Ibuprofen [Motrin] 600 mg PO Q8H PRN #30 tablet 02/09/18 Unknown Rx Sulfamethoxazole/Trimethoprim 1 each PO BID #14 tablet 02/09/18 Unknown Rx [Bactrim DS TAB] Acetaminophen [Tylenol Arthritis] 650 mg PO Q6HR PRN #30 tablet.er 03/02/18 Unknown Rx Ondansetron [Zofran Odt] 4 mg PO Q8HR PRN #20 tab.rapdis 03/02/18 Unknown Rx Promethazine [Phenergan SUPPOS] 50 mg AL Q6H PRN #20 supp.rect 03/02/18 Unknown Rx amLODIPine [Norvasc] 5 mg PO DAILY #30 tab 03/02/18 Unknown Rx Ondansetron [Zofran Odt] 4 mg PO Q8HR PRN #20 tab.rapdis 01/15/19 Unknown Rx amLODIPine [Norvasc] 5 mg PO DAILY #30 tab 01/15/19 Unknown Rx ED Physical Exam - General Limitations: No Limitations General appearance: alert, in no apparent distress - Head Head exam: Present: atraumatic, normocephalic - Eye Eye exam: Present: normal appearance, PERRL, EOMI, other (no jaundice) - Neck Neck exam: Present: normal inspection, full ROM. Absent: tenderness, lymphadeno mani - Respiratory Respiratory exam: Present: normal lung sounds bilaterally. Absent: respiratory distress, wheezes, rales, rhonchi, stridor, chest wall tenderness, accessory muscle use, decreased breath sounds, prolonged expiratory - Cardiovascular Cardiovascular Exam: Present: regular rate, normal rhythm, normal heart sounds. Absent: irregular rhythm, systolic murmur, diastolic murmur, rubs, gallop - GI/Abdominal GI/Abdominal exam: Present: soft, normal bowel sounds. Absent: distended, tenderness, guarding, rebound, rigid, diminished bowel sounds - Extremities Exam Extremities exam: Present: normal inspection, full ROM - Back Exam Back exam: Present: normal inspection, full ROM - Neurological Exam Neurological exam: Present: alert, oriented X3, normal gait - Psychiatric Psychiatric exam: Present: normal affect, normal mood - Skin Skin exam: Present: warm, dry, intact, normal color. Absent: rash - Other Other exam information: No jaundice present. ED Course Vital Signs 01/14/19 20:05 Temperature 97.7 F Pulse Rate 98 H Respiratory 14 Rate Blood Pressure 181/108 O2 Sat by Pulse 96 Oximetry - Reevaluation(s) Reevaluation #1: 01/15/19 00:30 Patient is speaking in full sentences with no signs of distress noted. - Consultations Consultation #1: 01/15/19 00:30 Patient has been consulted with Eloina Osorio about patient history, physical exam, and labs/US report and stated patient can be discharged with f/u with cartography professor. ED Medical Decision Making - Lab Data Result diagrams: 01/14/19 20:38 01/14/19 20:38 - Medical Decision Making This is a 53-year-old female that presents with nausea and vomiting. Patient is stable and was examined by me. There is no abdominal tenderness. Negative signs of symptoms of appendicitis. Labs obtained. UA obtained. US abdomen obtained and dictated by the radiologist. Patient is notified of the report with no questions noted by the patient. Upon examination and there is no jaundice noted. Sclera is white. Patient has been consulted and spoken with Dr. Ceja R is stated patient can be discharged and needs to follow up with a g astroenterologist. Vital signs are stable prior to discharge. Patient received potassium by mouth. Patient received Zofran and 1L Normal saline in the ED which patient stated symptoms has resovled and subsided. Patient started to have pain in the IV site and requested for pain medication so patient received Dilaudid and stated she will not drive home after discharge due to possible drowsiness. A by mouth challenge has been obtained and patient tolerated well with no nausea vomiting. Patient also has asymptomatic hypertension so I will start patient on Norvasc and instructed her to follow up with a primary care doctor in 3-5 days. She was educated that it is very necessary that she keeps a daily diary of blood pressure 3 times a day and to presented to primary care doctor as well. Patient was also instructed to Follow-up with a cartography professor in 2-3 days or if symptoms worsen and continue return to emergency room as soon as possible. At time of discharge, the patient does not seem toxic or ill in appearance. No acute signs of distress noted. Patient agrees to discharge treatment plan of care. No further questions noted by the patient. Critical care attestation.: If time is entered above; I have spent that time in minutes in the direct care of this critically ill patient, excluding procedure time. ED Disposition Clinical Impression: Nausea vomiting and diarrhea, Hypokalemia, Abnormal liver function test, Hyperbilirubinemia HTN (hypertension) Qualifiers: Hypertension type: unspecified Qualified Code(s): I10 - Essential (primary) hypertension Disposition: DC-01 TO HOME OR SELFCARE Is pt being admited?: No Does the pt Need Aspirin: No Condition: Stable Instructions: Hypokalemia (ED), Acute Nausea and Vomiting (ED), Hypertension (ED) Additional Instructions: Follow-up with a cartography professor in 2-3 days or if symptoms worsen and continue return to emergency room as soon as possible. Prescriptions: amLODIPine [Norvasc] 5 mg PO DAILY #30 tab Ondansetron [Zofran Odt] 4 mg PO Q8HR PRN #20 tab.rapdis PRN Reason: Nausea Referrals: ANALILIA GALLARDO MD [Primary Care Provider] - 3-5 Days [facility]IMARY [facility], [Referring] - 3-5 Days ANALILIA GARCIA MD [Staff Physician] - 3-5 Days [facility] [Provider Group] - 2-3 Days
[2019-01-15] MEDS ORDERED: K-DUR PO ONE (00:33)
[2019-01-15 01:41] VITALS: BP 191/117
== END 2019-01-15 01:39 | disposition home or self-care (01) ==
LOC: ED 19:33
DX: R11.2 Nausea with vomiting, unspecified (principal); E87.6 Hypokalemia; R19.7 Diarrhea, unspecified; R94.5 Abnormal results of liver function studies; E80.6 Other disorders of bilirubin metabolism; I10 Essential (primary) hypertension; G43.909 Migraine, unspecified, not intractable, without status migrainosus; Z86.73 Personal history of transient ischemic attack (TIA), and cerebral infarction without residual deficits; Z90.49 Acquired absence of other specified parts of digestive tract; Z98.890 Other specified postprocedural states; Z79.899 Other long term (current) drug therapy; Z88.8 Allergy status to other drugs, medicaments and biological substances
CPT/HCPCS: 36415; 76700; 80053; 81001; 83690; 85025; 96361; 96374; 96375; 99284; J1170; J2405; J7030

== ENCOUNTER 2019-03-18 14:24 | Inpatient (IN) | payer MEDICAID ==
--- NOTE | 2019-03-18 14:26 | Emergency Department Report ---
Blank Doc - Documentation Documentation: This is a 53-year-old female that presents with stroke like symptoms. This initial assessment/diagnostic orders/clinical plan/treatment(s) is/are subject to change based on patient's health status, clinical progression and re- assessment by fellow clinical providers in the ED. Further treatment and workup at subsequent clinical providers discretion. Patient/guardians urged not to elope from the ED as their condition may be serious if not clinically assessed and managed. Initial orders include: 1- Patient sent to MAIN for further evaluation and treatment 2- code stroke initiated
--- NOTE | 2019-03-18 14:49 | Emergency Department Report ---
ED Neuro Deficit HPI - General Chief Complaint: Neuro Symptoms/Deficit Stated Complaint: HEADACHE/WEAKNESS Time Seen by Provider: 03/18/19 14:25 Source: patient, family Mode of arrival: Wheelchair Limitations: Altered Mental Status - History of Present Illness Initial Comments: [employer] Date of Service: 03/18/2019 14:34:17 Impression: Stroke vs seizure Comments: Etiology unclear as patient is a poor historian. Symptoms have been present since at least yesterday. She has prior trauma with left sided encephalomalacia on CT head but no reported history of seizure. Metrics: Last Known Well: Unknown [employer] Notification Time: 03/18/2019 14:33:00 Arrival Time: 03/18/2019 14:24:00 Stamp Time: 03/18/2019 14:34:17 Time First Login Attempt: 03/18/2019 14:35:40 Video Start Time: 03/18/2019 14:35:40 Symptoms: speech changes NIHSS Start Assessment Time: 03/18/2019 14:36:40 Patient is not a candidate for tPA. Patient was not deemed candidate for tPA thrombolytics because of Last Well Known Above 4.5 Hours. Video End Time: 03/18/2019 14:47:16 CT head showed no acute hemorrhage or acute core infarct. CT head was reviewed. Advanced imaging was not obtained as the presentation was not suggestive of Large Vessel Occlusive Disease. ER physician notified of the decision on thrombolytics management. Our recommendations are outlined below. Recommendations: Initiate Aspirin 81 MG Daily Recommended Scan: MRI Head Without Contrast MRA Head and Neck Without Contrast When Available - Stroke Protocol Echocardiogram - Transthoracic Echocardiogram Lipid Panel to Be Obtained, if Not Done in the Last Three Months Therapies: Physical Therapy, Occupational Therapy, Speech Therapy Assessment When Applicable Dysphaghia Screen: Swallow Evaluation, Bedside DVT prophylaxis: SCDs, Pneumatic Compression Disposition: Follow up with Teleneurology Follow up Sign Out: Discussed with Emergency Department Provider History of Present Illness: Patient is a 53 years old Female. Patient was brought by EMS for symptoms of speech changes Patient states that her friend says she isn't making sense. She said he told her she wasn't making any sense yesterday. CT head showed no acute hemorrhage or acute core infarct. CT head was reviewed. Examination: 1A: Level of Consciousness - Alert; keenly responsive + 0 1B: Ask Month and Age - Aphasic + 2 1C: Blink Eyes & Squeeze Hands - Performs Both Tasks + 0 2: Test Horizontal Extraocular Movements - Normal + 0 3: Test Visual Sánchez - No Visual Loss + 0 4: Test Facial Palsy (Use Grimace if Obtunded) - Normal symmetry + 0 5A: Test Left Arm Motor Drift - No Drift for 10 Seconds + 0 5B: Test Right Arm Motor Drift - Drift, but doesn't hit bed + 1 6A: Test Left Leg Motor Drift - No Drift for 5 Seconds + 0 6B: Test Right Leg Motor Drift - Drift, but doesn't hit bed + 1 7: Test Limb Ataxia (FNF/Heel-Batista) - No Ataxia + 0 8: Test Sensation - Mild-Moderate Loss: Less Sharp/More Dull + 1 9: Test Language/Aphasia - Normal; No aphasia + 0 10: Test Dysarthria - Mild-Moderate Dysarthria: Slurring but can be understood + 1 11: Test Extinction/Inattention - No abnormality + 0 NIHSS Score: 6 Patient was informed the Neurology Consult would happen via TeleHealth consult by way of interactive audio and video telecommunications and consented to receiving care in this manner. Due to the immediate potential for life-threatening deterioration due to underlying acute neurologic illness, I spent 35 minutes providing critical care. This time includes time for face to face visit via telemedicine, review of medical records, imaging studies and discussion of findings with providers, the patient and/or family. Dr Cinthya Reardon [employer] - Related Data Home Medications: Home Medications Medication Instructions Recorded Confirmed Last Taken fentaNYL [Fentanyl] 1 each TD Q72H 12/18/15 03/03/17 03/01/17 Oxycodone HCl [Roxicodone TAB] 30 mg PO QID PRN 06/24/16 03/03/17 03/01/17 Carisoprodol [Soma] 350 mg PO QID 11/08/16 03/03/17 03/01/17 Zolpidem [Ambien] 10 mg PO QHS 11/08/16 03/03/17 03/01/17 Previous Rx's Medication Instructions Recorded Last Taken Type Benzonatate [Tessalon Perles] 100 mg PO Q8HR #30 capsule 01/30/17 03/01/17 Rx Ondansetron [Zofran ODT TAB] 8 mg PO Q8HR #20 tab.rapdis 01/30/17 03/01/17 Rx Cyclobenzaprine [Flexeril] 10 mg PO QHS PRN #10 tablet 02/09/18 Unknown Rx Ibuprofen [Motrin] 600 mg PO Q8H PRN #30 tablet 02/09/18 Unknown Rx Sulfamethoxazole/Trimethoprim 1 each PO BID #14 tablet 02/09/18 Unknown Rx [Bactrim DS TAB] Acetaminophen [Tylenol Arthritis] 650 mg PO Q6HR PRN #30 tablet.er 03/02/18 Unknown Rx Ondansetron [Zofran Odt] 4 mg PO Q8HR PRN #20 tab.rapdis 03/02/18 Unknown Rx Promethazine [Phenergan SUPPOS] 50 mg RI Q6H PRN #20 supp.rect 03/02/18 Unknown Rx amLODIPine [Norvasc] 5 mg PO DAILY #30 tab 03/02/18 Unknown Rx Ondansetron [Zofran Odt] 4 mg PO Q8HR PRN #20 tab.rapdis 01/15/19 Unknown Rx amLODIPine [Norvasc] 5 mg PO DAILY #30 tab 01/15/19 Unknown Rx Allergies/Adverse Reactions: Allergies Allergy/AdvReac Type Severity Reaction Status Date / Time hydrocodone Allergy Vomiting Verified 01/14/19 20:25 ketorolac tromethamine Allergy Anaphylaxis Verified 01/14/19 20:25 [From Toradol] meperidine HCl [From Demerol] Allergy Swelling Verified 01/14/19 20:25 morphine Allergy Rash Verified 01/14/19 20:25 ED Review of Systems ROS: Stated complaint: HEADACHE/WEAKNESS Other details as noted in HPI ED Past Medical Hx - Past Medical History Previous Medical History?: Yes Hx Hypertension: No Hx Congestive Heart Failure: No Hx Diabetes: No Hx Arthritis: No Hx Headaches / Migraines: Yes (Complex) Hx Seizures: No Hx Asthma: No Hx COPD: No Hx Dementia: No Hx HIV: No Additional medical history: Arnold Chiari malformation. ruptured disc in back. TIA. meningitis x6 - Surgical History Past Surgical History?: Yes Hx Cholecystectomy: Yes Additional Surgical History: Arnold-Chiari malformation repaired, cyst removed from left neck - Social History Smoking Status: Never Smoker Substance Use Type: None - Medications Home Medications: Home Medications Medication Instructions Recorded Confirmed Last Taken Type fentaNYL [Fentanyl] 1 each TD Q72H 12/18/15 03/03/17 03/01/17 History Oxycodone HCl [Roxicodone TAB] 30 mg PO QID PRN 06/24/16 03/03/17 03/01/17 History Carisoprodol [Soma] 350 mg PO QID 11/08/16 03/03/17 03/01/17 History Zolpidem [Ambien] 10 mg PO QHS 11/08/16 03/03/17 03/01/17 History Benzonatate [Tessalon Perles] 100 mg PO Q8HR #30 capsule 01/30/17 03/03/17 03/01/17 Rx Ondansetron [Zofran ODT TAB] 8 mg PO Q8HR #20 tab.rapdis 01/30/17 03/03/17 03/01/17 Rx Cyclobenzaprine [Flexeril] 10 mg PO QHS PRN #10 tablet 02/09/18 Unknown Rx Ibuprofen [Motrin] 600 mg PO Q8H PRN #30 tablet 02/09/18 Unknown Rx Sulfamethoxazole/Trimethoprim 1 each PO BID #14 tablet 02/09/18 Unknown Rx [Bactrim DS TAB] Acetaminophen [Tylenol Arthritis] 650 mg PO Q6HR PRN #30 tablet.er 03/02/18 Unknown Rx Ondansetron [Zofran Odt] 4 mg PO Q8HR PRN #20 tab.rapdis 03/02/18 Unknown Rx Promethazine [Phenergan SUPPOS] 50 mg RI Q6H PRN #20 supp.rect 03/02/18 Unknown Rx amLODIPine [Norvasc] 5 mg PO DAILY #30 tab 03/02/18 Unknown Rx Ondansetron [Zofran Odt] 4 mg PO Q8HR PRN #20 tab.rapdis 01/15/19 Unknown Rx amLODIPine [Norvasc] 5 mg PO DAILY #30 tab 01/15/19 Unknown Rx ED Neuro Physical Exam - General Limitations: Altered Mental Status Suspected Stroke: Yes - NIHSS Assessment Interval: Baseline 1a. Level of Consciousness: alert/keenly responsive 1b. LOC Questions: answers no questions correctly 1c. LOC Commands: performs tasks correctly 2. Best Gaze: normal 3. Visual: no visual loss 4. Facial Palsy: normal symmetrical movement 5b. Motor Arm Right: drift 5a. Motor Arm Left: no drift 6a. Motor Leg Left: no drift 6b. Motor Leg Right: drift 7. Limb Ataxia: absent 8. Sensory: mild/moderate sensory loss 9. Best Language: no aphasia 10. Dysarthria: mild/moderate dysarthria 11. Extinction/Inattention: no abnormality Total Score: 6 Stroke Severity: Moderate Stroke Critical care attestation.: If time is entered above; I have spent that time in minutes in the direct care of this critically ill patient, excluding procedure time. ED Disposition Clinical Impression: CVA (cerebral infarction) Disposition: OP ADMIT IP TO THIS HOSP Is pt being admited?: Yes Condition: Stable
--- NOTE | 2019-03-18 14:52 | Cat Scan Report ---
CT head/brain wo con INDICATION: Stroke symptoms. TECHNIQUE: Routine CT head without contrast. All CT scans at this location are performed using CT dos e reduction for ALARA by means of automated exposure control. COMPARISON: Head CT on 03/03/2017. FINDINGS: BRAIN / INTRACRANIAL CONTENTS: No acute hemorrhage, mass effect, midline shift, or hydrocephalus. No appreciable acute large territorial or lacunar infarct. Stable chronic infarct in the left MCA territ ory. ORBITS: No significant abnormality of visualized orbits. SINUSES / MASTOIDS: No significant abnormality of visualized sinuses and mastoid air cells. ADDITIONAL FINDINGS: None. IMPRESSION: 1. No acute intracranial abnormality. No adverse change from the prior exam. Code stroke findings called the ED, Dr. Taylor, at 1:45 pm central time on 03/18/19. Signer Name: Mk Salazar MD Signed: 03/18/2019 2:48 PM Workstation Name: [id number]
[2019-03-18 14:57] LABS: Basophils # (Auto) 0.1 K/mm3 (0.0-0.1); Eosinophils # (Auto) 0.2 K/mm3 (0.0-0.4); Eosinophils % (Auto) 1.9 % (0.0-4.3); Hematocrit 46.1 % (30.3-42.9); Hemoglobin 15.9 gm/dl (10.1-14.3); Lymphocytes # (Auto) 2.9 K/mm3 (1.2-5.4); Lymphocytes % (Auto) 29.7 % (13.4-35.0); Mean Corpuscular HGB Conc 35 % (30-34); Mean Corpuscular Volume 89 fl (79-97); Monocytes # (Auto) 0.7 K/mm3 (0.0-0.8); Monocytes % (Auto) 7.1 % (0.0-7.3); Platelet Count 311 K/mm3 (140-440); Red Blood Count 5.17 M/mm3 (3.65-5.03); Red Cell Distribution Width 14.5 % (13.2-15.2)
[2019-03-18 15:10] LABS: Partial Thromboplastin Time 23.7 Sec. (24.2-36.6)
[2019-03-18 15:11] LABS: INR 0.97 (0.87-1.13); Thrombin Time 17.4 Sec. (15.1-19.6)
[2019-03-18] MEDS ORDERED: PLAVIX PO ONE (15:19)
--- NOTE | 2019-03-18 15:25 | Emergency Department Report ---
HPI - General Chief Complaint: Neuro Symptoms/Deficit Time Seen by Provider: 03/18/19 14:25 - HPI HPI: Room 22 The patient is a 53-year-old female presenting with chief complaint right-sided weakness. The patient says she came to the emergency department because her friend told her she wasn't making sense yesterday. Patient missed spasms and weakness of her right upper and right lower extremity for an unknown period of time. The patient states she has noticed greater weakness in the right lower extremity than the right upper. Patient has had dysarthria for "several days." Location: [See above] Duration: [See above] Quality: [See above] Severity: [See above] Timing: [See above] Context: [See above] Modifying factors: [See above] Associated signs and symptoms: [see above] ED Past Medical Hx - Past Medical History Previous Medical History?: Yes Hx Headaches / Migraines: Yes (Complex) Additional medical history: Arnold Chiari malformation. ruptured disc in back. TIA. meningitis x6 - Surgical History Past Surgical History?: Yes Hx Cholecystectomy: Yes Additional Surgical History: Arnold-Chiari malformation repaired, cyst removed from left neck - Family History Family history: no significant - Social History Smoking Status: Current Every Day Smoker (1/2 pack per day) Substance Use Type: None (denies illicit drug use) - Medications Home Medications: Home Medications Medication Instructions Recorded Confirmed Last Taken Type fentaNYL [Fentanyl] 1 each TD Q72H 12/18/15 03/03/17 03/01/17 History Oxycodone HCl [Roxicodone TAB] 30 mg PO QID PRN 06/24/16 03/03/17 03/01/17 History Carisoprodol [Soma] 350 mg PO QID 11/08/16 03/03/17 03/01/17 History Zolpidem [Ambien] 10 mg PO QHS 11/08/16 03/03/17 03/01/17 History Benzonatate [Tessalon Perles] 100 mg PO Q8HR #30 capsule 01/30/17 03/03/17 03/01/17 Rx Ondansetron [Zofran ODT TAB] 8 mg PO Q8HR #20 tab.rapdis 01/30/17 03/03/17 03/01/17 Rx Cyclobenzaprine [Flexeril] 10 mg PO QHS PRN #10 tablet 02/09/18 Unknown Rx Ibuprofen [Motrin] 600 mg PO Q8H PRN #30 tablet 02/09/18 Unknown Rx Sulfamethoxazole/Trimethoprim 1 each PO BID #14 tablet 02/09/18 Unknown Rx [Bactrim DS TAB] Acetaminophen [Tylenol Arthritis] 650 mg PO Q6HR PRN #30 tablet.er 03/02/18 Unknown Rx Ondansetron [Zofran Odt] 4 mg PO Q8HR PRN #20 tab.rapdis 03/02/18 Unknown Rx Promethazine [Phenergan SUPPOS] 50 mg ID Q6H PRN #20 supp.rect 03/02/18 Unknown Rx amLODIPine [Norvasc] 5 mg PO DAILY #30 tab 03/02/18 Unknown Rx Ondansetron [Zofran Odt] 4 mg PO Q8HR PRN #20 tab.rapdis 01/15/19 Unknown Rx amLODIPine [Norvasc] 5 mg PO DAILY #30 tab 01/15/19 Unknown Rx ED Review of Systems ROS: Stated complaint: HEADACHE/WEAKNESS Other details as noted in HPI Constitutional: no symptoms reported Eyes: denies: eye pain ENT: denies: throat pain Respiratory: no symptoms reported Cardiovascular: denies: chest pain Endocrine: no symptoms reported Gastrointestinal: denies: abdominal pain Musculoskeletal: myalgia. denies: back pain Neurological: weakness. denies: headache Physical Exam - Physical Exam Vital Signs: Vital Signs 03/18/19 03/18/19 14:42 14:53 Temperature 97 F L Pulse Rate 64 64 Respiratory 16 16 Rate Blood Pressure 216/106 Blood Pressure 197/81 [Right] O2 Sat by Pulse 100 100 Oximetry Physical Exam: GENERAL: The patient is well-developed well-nourished female lying on stretcher not appearing to be in acute distress. [] HEENT: Normocephalic. Atraumatic. Extraocular motions are intact. Patient has moist mucous membranes. NECK: Supple. Trachea midline CHEST/LUNGS: Clear to auscultation. There is no respiratory distress noted. HEART/CARDIOVASCULAR: Regular. There is no tachycardia. There is no gallop rub or murmur. ABDOMEN: Abdomen is soft, nontender. Patient has normal bowel sounds. There is no abdominal distention. SKIN: There is no rash. There is no edema. There is no diaphoresis. NEURO: The patient is awake, alert, and oriented. The patient is cooperative. The patient has no focal neurologic deficits. The patient has dysarthric speech. Cranial nerves II through XII grossly intact. There is right pronator drift. Patient exhibits significant difficulty raising right lower extremity from stretcher. MUSCULOSKELETAL: There is no evidence of acute injury. ED Course Vital Signs 03/18/19 03/18/19 14:42 14:53 Temperature 97 F L Pulse Rate 64 64 Respiratory 16 16 Rate Blood Pressure 216/106 Blood Pressure 197/81 [Right] O2 Sat by Pulse 100 100 Oximetry ED Medical Decision Making - Lab Data Result diagrams: 03/18/19 14:47 03/18/19 14:47 Laboratory Tests 03/18/19 03/18/19 03/18/19 14:47 14:47 14:47 WBC 9.8 RBC 5.17 H Hgb 15.9 H Hct 46.1 H MCV 89 MCH 31 MCHC 35 H RDW 14.5 Plt Count 311 Lymph % (Auto) 29.7 [place] % (Auto) 7.1 Eos % (Auto) 1.9 Baso % (Auto) 1.0 Lymph # 2.9 [place] # 0.7 Eos # 0.2 Baso # 0.1 Seg Neutrophils % 60.3 Seg Neutrophils # 5.9 PT 12.6 INR 0.97 APTT 23.7 L Thrombin Time 17.4 Sodium 144 Potassium 2.7 L* Chloride 103.9 Carbon Dioxide 23 Anion Gap 20 BUN 20 H Creatinine 0.7 Estimated GFR > 60 BUN/Creatinine Ratio 29 Glucose 145 H Calcium 9.7 Total Bilirubin 0.70 AST 15 ALT 11 Alkaline Phosphatase 86 Total Creatine Kinase 28 L CK-MB (CK-2) 1.1 CK-MB (CK-2) Rel Index 3.9 Troponin T < 0.010 Total Protein 7.6 Albumin 4.2 Albumin/Globulin Ratio 1.2 - EKG Data -: EKG Interpreted by Me EKG shows normal: sinus rhythm Rate: normal - EKG Data When compared to previous EKG there are: previous EKG unavailable Interpretation: nonspecific ST-T wave arsalan (T-wave inversions in leads V2, V3) - Radiology Data Radiology results: report reviewed (CT head), image reviewed (CT head) [facility] [address] [place] [address] Cat Scan Report Signed Patient: BRITTANY GOLDBERG MR#: [id number] : Acct:[id number] Age/Sex: 53 / F ADM Date: 03/18/19 Loc: ED Attending Dr: Ordering Physician: TERESITA MICHAELS NP Date of Service: 03/18/19 Procedure(s): CT head/brain wo con Accession Number(s): [id number] cc: TERESITA MICHAELS NP CT head/brain wo con INDICATION: Stroke symptoms. TECHNIQUE: Routine CT head without contrast. All CT scans at this location are performed using CT dose reduction for ALARA by means of automated exposure control. COMPARISON: Head CT on 03/03/2017. FINDINGS: BRAIN / INTRACRANIAL CONTENTS: No acute hemorrhage, mass effect, midline shift, or hydrocephalus. No appreciable acute large territorial or lacunar infarct. Stable chronic infarct in the left MCA territory. ORBITS: No significant abnormality of visualized orbits. SINUSES / MASTOIDS: No significant abnormality of visualized sinuses and mastoid air cells. ADDITIONAL FINDINGS: None. IMPRESSION: 1. No acute intracranial abnormality. No adverse change from the prior exam. Code stroke findings called the ED, Dr. Taylor, at 1:45 pm central time on 03/18/19. Signer Name: Mk Salazar MD Signed: 03/18/2019 2:48 PM Workstation Name: [id number] Transcribed By: NORRIS Dictated By: Mk Salazar MD Electronically Authenticated By: Mk Salazar MD Signed Date/Time: 03/18/191447 DD/ 1443 TD/TT: - Differential Diagnosis CVA, TIA Critical care attestation.: If time is entered above; I have spent that time in minutes in the direct care of this critically ill patient, excluding procedure time. ED Disposition Clinical Impression: CVA (cerebral infarction), CVA (cerebral vascular accident) Disposition: OP ADMIT IP TO THIS HOSP Is pt being admited?: Yes Does the pt Need Aspirin: No Condition: Fair Time of Disposition: 16:26 (Hospitalist paged (Dr Schaefer))
[2019-03-18 16:16] LABS: Creatine Kinase MB 1.1 ng/mL (0.0-4.0)
[2019-03-18 16:17] LABS: Alanine Aminotransferase 11 units/L (7-56); Albumin 4.2 g/dL (3.9-5); BUN/Creatinine Ratio 29; Blood Urea Nitrogen 20 mg/dL (7-17); Calcium 9.7 mg/dL (8.4-10.2); Hemolysis Index 68
[2019-03-18] MEDS ORDERED: K-DUR PO ONE (16:21)
--- NOTE | 2019-03-18 17:07 | History and Physical Report ---
History of Present Illness Chief complaint: 53 YO Female with History of present illness: 53 YO Female with Nicotine Dependence, OA, Migraine CERVANTES, CVA, Arnold Chiari Malformation S/P repair presents to ED for evaluation. Pt states that she has experienced weakness on her right side, and slurred speech over the past 2 days. Pt reports being told by a friend that she "wasnt right". Pt reports last being in her normal state of health 2-3 days ago. Pt transported to [facility] via private vehicle. Pt seen and evaluated in ED and found to have symptoms consistent with Acute CVA. A code stroke was called, Teleneurology consulted. Pt deemed not to be a candidate for TPA. Pt admitted to telemetry and initiated on CVA protocol. Neurology consulted in ED. Pt denies fever, chills, CP, Palpitations, Trauma, Syncope, productive cough, skin rash or recent ill contacts. Prior admission on 03/03/17 reviewed. All listed medication reconciled at time of admission. Past History Past Medical History: arthritis, migraines, other (Arnold Chiari Malformation) Past Surgical History: Other (brain surgery) Social history: smoking Family history: hypertension Medications and Allergies Allergies Allergy/AdvReac Type Severity Reaction Status Date / Time hydrocodone Allergy Vomiting Verified 01/14/19 20:25 ketorolac tromethamine Allergy Anaphylaxis Verified 01/14/19 20:25 [From Toradol] meperidine HCl [From Demerol] Allergy Swelling Verified 01/14/19 20:25 morphine Allergy Rash Verified 01/14/19 20:25 Home Medications Medication Instructions Recorded Confirmed Last Taken Type fentaNYL [Fentanyl] 1 each TD Q72H 12/18/15 03/18/19 03/15/19 History Oxycodone HCl [Roxicodone TAB] 30 mg PO QID PRN 06/24/16 03/18/19 03/17/19 History Carisoprodol [Soma] 350 mg PO QID 11/08/16 03/18/19 03/17/19 History Zolpidem [Ambien] 10 mg PO QHS 11/08/16 03/18/19 03/17/19 History Acetaminophen [Tylenol Arthritis] 650 mg PO Q6HR PRN #30 tablet.er 03/02/18 03/18/19 03/17/19 Rx Oxycodone HCl [roxiCODONE] 30 mg PO QID 03/18/19 03/18/19 03/17/19 History Review of Systems Constitutional: no weight loss, no weight gain, no fever, no chills Ears, nose, mouth and throat: no ear pain, no ear discharge, no tinnitis, no decreased hearing, no nose pain, no nasal congestion Breasts: no change in shape, no swelling, no mass Cardiovascular: no chest pain, no orthopnea, no palpitations, no rapid/irregular heart beat, no edema, no syncope, no lightheadedness Respiratory: no cough, no cough with sputum, no hemoptysis, no shortness of breath Gastrointestinal: no abdominal pain, no nausea, no vomiting, no diarrhea, no constipation, no change in bowel habits Genitourinary Female: no dysmenorrhea, no pelvic pain, no flank pain, no menorrhagia, no dysuria, no urinary frequency, no urgency, no stress incontinence, no post void dribbling Menstruation: no currently menstrual, no premenarcheal, no post hysterectomy, no ammenorrhea, no ammenorrhea on BC, no period normal, no period heavy, no period spotting Rectal: no pain, no incontinence, no bleeding Musculoskeletal: no neck stiffness, no neck pain, no shooting arm pain, no arm numbness/tingling, no low back pain, no shooting leg pain, no leg numbness/tingling Integumentary: no rash, no pruritis, no redness, no sores, no wounds, no jaundice Neurological: weakness, no head injury, no transient paralysis, no paralysis, no parathesias, no tingling, no seizures Psychiatric: no anxiety, no memory loss, no change in sleep habits, no sleep disturbances, no insomnia, no hypersomnia Endocrine: no cold intolerance, no heat intolerance, no polyphagia, no excessive thirst, no polydipsia, no nocturia, no excessive sweating, no flushing Hematologic/Lymphatic: no easy bruising, no easy bleeding, no lymphadenopathy, no lymphedema Allergic/Immunologic: no urticaria, no allergic rhinitis, no wheezing, no persistent infections, no anaphylaxis, no angioedema Exam - Constitutional Vitals: Temp Pulse Resp BP Pulse Ox 97 F L 64 16 172/104 98 03/18/19 14:42 03/18/19 16:56 03/18/19 16:56 03/18/19 16:56 03/18/19 16:56 General appearance: Present: mild distress - EENT Eyes: Present: PERRL ENT: hearing intact, clear oral mucosa - Neck Neck: Present: supple, normal ROM - Respiratory Respiratory effort: normal Respiratory: bilateral: CTA - Cardiovascular Heart Sounds: Present: S1 & S2. Absent: rub, click - Extremities Extremities: pulses symmetrical, No edema Peripheral Pulses: within normal limits - Abdominal General gastrointestinal: Present: soft, non-tender, non-distended, normal bowel sounds Female genitourinary: Present: normal - Rectal Rectal Exam: normal exam-external/orifice - Integumentary Integumentary: Present: clear, warm, dry - Musculoskeletal Musculoskeletal: right sided weakness - Psychiatric Psychiatric: appropriate mood/affect, intact judgment & insight - Neurologic Neurologic: CNII-XII intact, moves all extremities, no gait normal Results - Labs CBC & Chem 7: 03/18/19 14:47 03/18/19 14:47 Labs: Abnormal lab results 03/18/19 03/18/19 03/18/19 Range/Units 14:47 14:47 14:47 RBC 5.17 H (3.65-5.03) M/mm3 Hgb 15.9 H (10.1-14.3) gm/dl Hct 46.1 H (30.3-42.9) % MCHC 35 H (30-34) % APTT 23.7 L (24.2-36.6) Sec. Potassium 2.7 L* (3.6-5.0) mmol/L BUN 20 H (7-17) mg/dL Glucose 145 H (65-100) mg/dL Total Creatine Kinase 28 L (30-135) units/L Assessment and Plan - Patient Problems (1) CVA (cerebral infarction) Onset Date: 02/02/15 Current Visit: Yes Status: Acute Qualifiers: Laterality of affected vessel: left Plan to address problem: Stroke Protocol: Admit to telemetry, CT Head, Carotid doppler, Echo, neurology consulted, PT/OT/Speech therapy, Lipid panel, antiplatelet therapy, neuro checks, further testing as per neurology team. (2) Migraine Current Visit: Yes Status: Acute Qualifiers: Migraine type: unspecified Plan to address problem: Pain control, supportive care. (3) Nicotine dependence Current Visit: Yes Status: Acute Plan to address problem: Nicotine Dependence, smoking cessation counseling (4) Arnold-Chiari malformation Current Visit: Yes Status: Acute Plan to address problem: supportive care, CT head, neuro checks (5) Obesity (BMI 30.0-34.9) Current Visit: Yes Status: Acute Plan to address problem: SCD to BLE while in bed, (6) DVT prophylaxis Current Visit: Yes Status: Acute Plan to address problem: SCD to BLE while in bed
[2019-03-18] MEDS ORDERED: PHENERGAN PR PRN (17:08)
[2019-03-18] MEDS ORDERED: ZOFRAN IV PRN (17:08)
[2019-03-18] MEDS ORDERED: REGLAN PO PRN (17:08)
[2019-03-18] MEDS ORDERED: DULCOLAX PR PRN (17:08)
[2019-03-18] MEDS ORDERED: MILK OF MAGNESIA PO PRN (17:08)
[2019-03-18] MEDS ORDERED: TYLENOL PO PRN (17:08)
[2019-03-18] MEDS ORDERED: SODIUM CHLORIDE FLUSH SYRINGE 10 ML IV PRN (17:08)
[2019-03-18] MEDS ORDERED: OXYCODONE HCL 30 MG PO PRN (17:13)
[2019-03-18] MEDS ORDERED: NON-FORMULARY (Acetaminophen [Tylenol Arthritis] 650 MG) PO PRN (17:13)
[2019-03-18] MEDS ORDERED: FENTANYL TD SCH (17:15)
[2019-03-18 17:49] LABS: Amphetamine Screen,Urine PRESUMPTIVE NEGATIVE; Benzodiazepines Screen,Urine PRESUMPTIVE NEGATIVE; Cannabinoid Screen,Urine PRESUMPTIVE NEGATIVE; Cocaine Screen,Urine PRESUMPTIVE NEGATIVE; Methadone Screen,Urine PRESUMPTIVE NEGATIVE; Opiate Screen,Urine PRESUMPTIVE NEGATIVE
[2019-03-18 17:59] LABS: Bilirubin,Urine NEG (Negative); Blood,Urine NEG (Negative); Color,Urine Amber (Yellow); Mucus,Urine 2+ /HPF
[2019-03-18] MEDS ORDERED: NON-FORMULARY (Oxycodone Hcl [Roxicodone] 30 MG) PO SCH (18:00)
[2019-03-18] MEDS: ROXICODONE PO PRN (19:52)
[2019-03-18] MEDS: SOMA PO SCH ×2 (19:53→21:06)
[2019-03-18] MEDS: AMBIEN PO SCH (21:06)
[2019-03-18] MEDS ORDERED: APRESOLINE IV SCH (22:00)
[2019-03-19] MEDS ORDERED: APRESOLINE IV PRN (01:07)
[2019-03-19] MEDS: ROXICODONE PO PRN ×4 (03:23→22:54)
[2019-03-19 06:20] LABS: BUN/Creatinine Ratio 31; Blood Urea Nitrogen 22 mg/dL (7-17); Calcium 9.1 mg/dL (8.4-10.2); Hemolysis Index 1
[2019-03-19 06:24] LABS: Chol/HDL Ratio 4.6 %
[2019-03-19] MEDS ORDERED: K-DUR PO NR ×3 (08:27→16:30)
--- NOTE | 2019-03-19 09:08 | Vascular Lab Report ---
BILATERAL CAROTID DOPPLER ULTRASOUND INDICATION : stroke TECHNIQUE: Grayscale and color Doppler imaging performed through the neck. COMPARISON: None FINDINGS: Right: There is minimal partially calcified plaque in the carotid bulb. Peak systolic velocity in t he CCA is 117 cm/s with end-diastolic velocity of 24 cm/s. Peak systolic velocity in the proximal ICA is 98 cm/s with end-diastolic velocity of 28 cm/s. ICA to CCA ratio is less than 2. There is antegra de flow in the ECA and the vertebral artery. Left: There is mild partially calcified plaque in the carotid bulb. Peak systolic velocity in the CCA is 114 cm/s with end-diastolic velocity of 117 cm/s. Peak systolic velocity in the proximal ICA is 1 16 cm/s with end-diastolic velocity of 30 cm/s. ICA to CCA ratio is less than 2. There is antegrade flow in the ECA and the vertebral artery. IMPRESSION: No hemodynamically significant stenosis by NASCET criteria. There is less than 50% lumina l narrowing bilaterally. Signer Name: Rodrick Mata Jr, MD Signed: 03/19/2019 9:04 AM Workstation Name: [id number]
[2019-03-19] MEDS: SOMA PO SCH ×4 (09:40→21:39)
[2019-03-19] MEDS: ASPIRIN PO SCH (09:40)
--- NOTE | 2019-03-19 12:12 | Consultation ---
Past History Past Medical History: arthritis, migraines, other (Arnold Chiari Malformation) Past Surgical History: Other (brain surgery) Social history: smoking Family history: hypertension Medications and Allergies Allergies Allergy/AdvReac Type Severity Reaction Status Date / Time hydrocodone Allergy Vomiting Verified 01/14/19 20:25 ketorolac tromethamine Allergy Anaphylaxis Verified 01/14/19 20:25 [From Toradol] meperidine HCl [From Demerol] Allergy Swelling Verified 01/14/19 20:25 morphine Allergy Rash Verified 01/14/19 20:25 Home Medications Medication Instructions Recorded Confirmed Last Taken Type fentaNYL [Fentanyl] 1 each TD Q72H 12/18/15 03/18/19 03/15/19 History Oxycodone HCl [Roxicodone TAB] 30 mg PO QID PRN 06/24/16 03/18/19 03/17/19 History Carisoprodol [Soma] 350 mg PO QID 11/08/16 03/18/19 03/17/19 History Zolpidem [Ambien] 10 mg PO QHS 11/08/16 03/18/19 03/17/19 History Acetaminophen [Tylenol Arthritis] 650 mg PO Q6HR PRN #30 tablet.er 03/02/18 03/18/19 03/17/19 Rx Oxycodone HCl [roxiCODONE] 30 mg PO QID 03/18/19 03/18/19 03/17/19 History Active Meds: Active Medications Acetaminophen (Tylenol) 650 mg PO Q4H PRN PRN Reason: Pain, Mild (1-3) Aspirin (Aspirin) 325 mg PO QDAY [facility] Last Admin: 03/19/19 09:40 Dose: 325 mg Documented by: Atorvastatin Calcium (Lipitor) 40 mg PO QHS [facility] Last Admin: 03/18/19 21:06 Dose: 40 mg Documented by: Bisacodyl (Dulcolax) 10 mg ID QDAY PRN PRN Reason: Constipation Carisoprodol (Soma) 350 mg PO QID [facility] Last Admin: 03/19/19 09:40 Dose: 350 mg Documented by: Hydralazine HCl (Apresoline) 10 mg IV Q4HR PRN PRN Reason: Hypertension Last Admin: 03/19/19 05:26 Dose: 10 mg Documented by: Magnesium Hydroxide (Milk Of Magnesia) 30 ml PO Q4H PRN PRN Reason: Constipation Metoclopramide HCl (Reglan) 10 mg PO Q6H PRN PRN Reason: Nausea And Vomiting Miscellaneous Medication (Fentanyl [Fentanyl]) 1 each TD Q72H [facility] Ondansetron HCl (Zofran) 4 mg IV Q8H PRN PRN Reason: Nausea And Vomiting Last Admin: 03/19/19 10:12 Dose: 4 mg Documented by: Oxycodone HCl (Roxicodone) 30 mg PO Q6H PRN PRN Reason: Pain, Moderate (4-6) Last Admin: 03/19/19 09:46 Dose: 30 mg Documented by: Potassium Chloride (K-Dur) 40 meq PO ONCE NR Stop: 03/19/19 13:00 Potassium Chloride (K-Dur) 40 meq PO ONCE NR Stop: 03/19/19 17:30 Promethazine HCl (Phenergan) 25 mg ID Q6H PRN PRN Reason: Nausea And Vomiting Sodium Chloride (Sodium Chloride Flush Syringe 10 Ml) 10 ml IV PRN PRN PRN Reason: LINE FLUSH Zolpidem Tartrate (Ambien) 10 mg PO QHS [facility] Last Admin: 03/18/19 21:06 Dose: 10 mg Documented by: Physical Examination - Vital Signs Vital Signs: Vital Signs Temp Pulse Resp BP Pulse Ox 97 F L 64 16 216/106 100 03/18/19 14:42 03/18/19 14:42 03/18/19 14:42 03/18/19 14:42 03/18/19 14:42 Results - Laboratory Findings CBC and BMP: 03/18/19 14:47 03/19/19 04:14 Abnormal Lab Findings: Abnormal Labs 03/18/19 03/18/19 03/18/19 14:47 14:47 14:47 RBC 5.17 H Hgb 15.9 H Hct 46.1 H MCHC 35 H APTT 23.7 L Potassium 2.7 L* BUN 20 H Glucose 145 H Total Creatine Kinase 28 L HDL Cholesterol 03/19/19 03/19/19 04:04 04:14 RBC Hgb Hct MCHC APTT Potassium 2.6 L* BUN 22 H Glucose Total Creatine Kinase HDL Cholesterol 38 L Assessment and Plan 53 YR OLD FEMALE WITH HIST OF ARNOLD CHIARI MALFORMATION S/P SURGERY, TIA,STROKE I.E. INFARCT IN THE LEFT CORTEX DEVELOPED AN EPISODE OF RT SIDED WEAKNESS TWO DAYS PRIOR TO ADMISSION ON 03/18/2019. PATIENT WAS BROUGHT TO ER BASED ON THE FRIEND'S REPORT THAT SHE WAS NOT MAKING SENSE ONE DAY PRIOR. STROKE CODE WAS CALLED ,HOWEVER IT COULD NOT BE DETERMINED WHETHER IT COULD BE SEIZURE PRODUCING NADIYA'S PALSY VS INFARCT IN THE BRAIN. WORK UP INCLUDING MRI AND CT SCAN OF THE BRAIN DID NOT SHOW ANY ACUTE CHANGE. CAROTID DUPLEX AND 2D ECHO ALSO DID NOT SHOW ANY SIGNIFICANT ABNORMALITIES.LAB SHOWED ELEVATED LDL AND LOW HDL. PATIENT STATED THAT SHE IS ALSO EXPERIENCING RT KNEE AND RT HIP PAIN. FOR QUITE SOME TIME, HOWEVER FOR SOME REASON DID NOT GET ANY APPROPRIATE MEDICAL ATTENTI ON. SHE ALSO COMPLAINS OF NECK PAIN AND STIFFNESS AND LOW BACK AND RT HIP PAIN.SHE HAS BEEN INVOLVED IN SIGNIFICANT PUSHING,PULLING AND LIFTING HOUSE HOLD STUFFS IN THE PROCESS OF MOVING FROM AN APARTMENT PHYSICAL EXAMINATION= IN NO ACUTE DISTRESS. PATIENT IS ALERT AND APPROPRIATE AND HAS INSIGHT INTO HER CONDITION. HEART-NORMAL RATE AND RYTHM. CAROTIDS- BOTH PALPABLE. CRANIAL NERVES-ALL CRANIAL NERVES ARE WITH IN NORMAL LIMIT.NO FACIAL WEAKNESS OR ASYMMETRY WAS NOTED. MOTOR- WEAK RIGHT DELTOID,RT BICEPS AND RT TRICEPS MUSCLES AND ALSO WEAK RT DORSIFLEXION,PLANTAR FLEXION AND RT EHL (extensor hallucis longus) MUSCLE. WEAK RIGHT HIP FLEXION. TENDER CERVICAL PARASPINAL MUSCLE ON THE RT SIDE AND ALSO TENDER AND STIFF RT LUMBAR PARASPINAL MUSCLES. TENDER RIGHT HIP AND TENDER RT. KNEE. REFLEXES- DECREASED RT BICEPS,RT. TRICEPS AND RT, BRACHIORADIALIS REFLEXES COMPARED TO THE LEFT SIDE SENSORY= DECREASED SENSATION TO PIN PRICK ON RIGHT C5,C6 AND C7 DERMATOMES. DECREASED SENSATION TO PIN PRICK ON RT. L4,L5 AND S1 DERMATOMES. STRAIGHT LEG RAISING ( SLR); LIMITED TO SIXTY DEGREES ON THE RT SIDE. IMPRESSION. 1. PATIENT DOES NOT HAVE ANY STROKE OR POST ICTAL STATE FROM SEIZURE. 2, PATIENT HAS MULTIPLE CERVICAL RADICULOPATHIES INVOLVING RT C5,C6 AND C7 NERVE ROOTS PROBABLY FROM DISC PROTRUSION FROM SIGNIFICANT PUSHING,PULLING AND LIFTING. 3. PATIENT ALSO HAS LUMBO SACRAL RADICULOPATHIES INVOLVING RT. L4,L5 AND S1 NERVE ROOTS FROM THE SAME PUSHING,PULLING AND LIFTING. 4. ADVANCED OSTEO ARHTRITIS OF RT HIP AND ALSO PROPBABLY RT KNEE. RECOMMEND. 1. MRI OF CERVICAL SPINE AND LUMBO SACRAL SPINE, MRI OF RT HIP AND RT. KNEE. 2.FLEXERIL 5MG PO QHS FOR MUSCLE STIFFNESS AND 5MG DURING THE DAY IF NEEDED. 3. AVOID PUSHING ,PULLING AND LIFTING MORE THAN 10LBS. 4.CONTINUE ASPIRIN AND STATIN, 5. ORTHOPEDIC CONSULT AFTER THE MRI OF HIP,NECK AND BACK AND KNEE ARE DONE 6.PATIENT WILL BENEFIT FROM OVER THE COUNTER FLAXSEED OIL CAPSULE TO INCRAESE HER HDL
--- NOTE | 2019-03-19 15:57 | Progress Note ---
Assessment and Plan Assessment and plan: CVA (cerebral infarction) Stroke Protocol, Cont. telemetry. F/UCT Head, Carotid doppler, Echo, neurology consulted, PT/OT/Speech therapy, Lipid panel, antiplatelet therapy, neuro checks, further testing as per neurology team--pt followed by Dr Lang Migraine Pain control, supportive care. Nicotine dependence Nicotine Dependence, smoking cessation counseling Arnold-Chiari malformation supportive care, CT head, neuro checks Obesity (BMI 30.0-34.9) SCD to BLE while in bed, DVT prophylaxis SCD to BLE while in bed History Interval history: No new issues overnight Hospitalist Physical - Constitutional Vitals: Temp Pulse Resp BP Pulse Ox 98.7 F 90 18 152/99 93 03/19/19 03:36 03/19/19 10:20 03/19/19 11:06 03/19/19 11:06 03/19/19 10:20 General appearance: Present: mild distress - EENT Eyes: Present: PERRL, EOM intact ENT: hearing intact, clear oral mucosa, dentition normal - Neck Neck: Present: supple, normal ROM - Respiratory Respiratory effort: normal Respiratory: bilateral: CTA - Cardiovascular Rhythm: regular Heart Sounds: Present: S1 & S2. Absent: gallop, rub - Extremities Extremities: no ischemia, No edema, Full ROM - Abdominal General gastrointestinal: soft, non-tender, non-distended, normal bowel sounds - Integumentary Integumentary: Present: clear, warm, dry - Neurologic Neurologic: CNII-XII intact, moves all extremities Results - Labs CBC & Chem 7: 03/18/19 14:47 03/19/19 04:14 Labs: Laboratory Last Values WBC 9.8 K/mm3 (4.5-11.0) 03/18/19 14:47 RBC 5.17 M/mm3 (3.65-5.03) H 03/18/19 14:47 Hgb 15.9 gm/dl (10.1-14.3) H 03/18/19 14:47 Hct 46.1 % (30.3-42.9) H 03/18/19 14:47 MCV 89 fl (79-97) 03/18/19 14:47 MCH 31 pg (28-32) 03/18/19 14:47 MCHC 35 % (30-34) H 03/18/19 14:47 RDW 14.5 % (13.2-15.2) 03/18/19 14:47 Plt Count 311 K/mm3 (140-440) 03/18/19 14:47 Lymph % (Auto) 29.7 % (13.4-35.0) 03/18/19 14:47 [place] % (Auto) 7.1 % (0.0-7.3) 03/18/19 14:47 Eos % (Auto) 1.9 % (0.0-4.3) 03/18/19 14:47 Baso % (Auto) 1.0 % (0.0-1.8) 03/18/19 14:47 Lymph # 2.9 K/mm3 (1.2-5.4) 03/18/19 14:47 [place] # 0.7 K/mm3 (0.0-0.8) 03/18/19 14:47 Eos # 0.2 K/mm3 (0.0-0.4) 03/18/19 14:47 Baso # 0.1 K/mm3 (0.0-0.1) 03/18/19 14:47 Seg Neutrophils % 60.3 % (40.0-70.0) 03/18/19 14:47 Seg Neutrophils # 5.9 K/mm3 (1.8-7.7) 03/18/19 14:47 PT 12.6 Sec. (12.2-14.9) 03/18/19 14:47 INR 0.97 (0.87-1.13) 03/18/19 14:47 APTT 23.7 Sec. (24.2-36.6) L 03/18/19 14:47 17.4 Sec. (15.1-19.6) 03/18/19 14:47 Sodium 145 mmol/L (137-145) 03/19/19 04:14 Potassium 2.6 mmol/L (3.6-5.0) L* 03/19/19 04:14 Chloride 106.7 mmol/L (98-107) 03/19/19 04:14 Carbon Dioxide 25 mmol/L (22-30) 03/19/19 04:14 16 mmol/L 03/19/19 04:14 BUN 22 mg/dL (7-17) H 03/19/19 04:14 0.7 mg/dL (0.7-1.2) 03/19/19 04:14 Estimated GFR > 60 ml/min 03/19/19 04:14 31 % 03/19/19 04:14 Glucose 99 mg/dL (65-100) 03/19/19 04:14 Calcium 9.1 mg/dL (8.4-10.2) 03/19/19 04:14 0.70 mg/dL (0.1-1.2) 03/18/19 14:47 AST 15 units/L (5-40) 03/18/19 14:47 ALT 11 units/L (7-56) 03/18/19 14:47 86 units/L (35-129) 03/18/19 14:47 28 units/L (30-135) L 03/18/19 14:47 CK-MB (CK-2) 1.1 ng/mL (0.0-4.0) 03/18/19 14:47 CK-MB (CK-2) Rel Index 3.9 (0-4) 03/18/19 14:47 < 0.010 ng/mL (0.00-0.029) 03/18/19 14:47 7.6 g/dL (6.3-8.2) 03/18/19 14:47 4.2 g/dL (3.9-5) 03/18/19 14:47 1.2 % 03/18/19 14:47 Triglycerides 118 mg/dL (2-149) 03/19/19 04:04 Cholesterol 175 mg/dL (50-199) 03/19/19 04:04 120 mg/dL (50-130) 03/19/19 04:04 38 mg/dL (40-59) L 03/19/19 04:04 4.60 % 03/19/19 04:04 Maria E (Yellow) 03/18/19 16:55 Slightly-cloudy (Clear) 03/18/19 16:55 5.0 (5.0-7.0) 03/18/19 16:55 Ur Specific [place] 1.028 (1.003-1.030) 03/18/19 16:55 100 mg/dl mg/dL (Negative) 03/18/19 16:55 Neg mg/dL (Negative) 03/18/19 16:55 Neg mg/dL (Negative) 03/18/19 16:55 Neg (Negative) 03/18/19 16:55 Neg (Negative) 03/18/19 16:55 Neg (Negative) 03/18/19 16:55 2.0 mg/dL (<2.0) 03/18/19 16:55 Ur Leukocyte Esterase Neg (Negative) 03/18/19 16:55 6.0 /HPF (0.0-6.0) 03/18/19 16:55 2.0 /HPF (0.0-6.0) 03/18/19 16:55 U Epithel Cells (Auto) 3.0 /HPF (0-13.0) 03/18/19 16:55 2+ /HPF 03/18/19 16:55 Presumptive negative 03/18/19 16:55 Presumptive negative 03/18/19 16:55 Ur Barbiturates Screen Presumptive negative 03/18/19 16:55 Ur Phencyclidine Scrn Presumptive negative 03/18/19 16:55 Ur Amphetamines Screen Presumptive negative 03/18/19 16:55 U Benzodiazepines Scrn Presumptive negative 03/18/19 16:55 Presumptive negative 03/18/19 16:55 U Marijuana (THC) Screen Presumptive negative 03/18/19 16:55 Disclamer 03/18/19 16:55 Active Medications - Current Medications Current Medications: Generic Name Dose Route Start Last Admin Trade Name Freq PRN Reason Stop Dose Admin Acetaminophen 650 mg 03/18/19 17:08 Tylenol PO Q4H PRN Pain, Mild (1-3) Aspirin 325 mg 03/19/19 10:00 03/19/19 09:40 Aspirin PO 325 mg QDAY JOSE Administration Atorvastatin Calcium 40 mg 03/18/19 22:00 03/18/19 21:06 Lipitor PO 40 mg QHS JOSE Administration Bisacodyl 10 mg 03/18/19 17:08 Dulcolax [place] QDAY PRN Constipation Carisoprodol 350 mg 03/18/19 18:00 03/19/19 13:19 Soma PO 350 mg QID JOSE Administration Hydralazine HCl 10 mg 03/19/19 01:07 03/19/19 05:26 Apresoline IV 10 mg Q4HR PRN Administration Hypertension Magnesium Hydroxide 30 ml 03/18/19 17:08 Milk Of Magnesia PO Q4H PRN Constipation Metoclopramide HCl 10 mg 03/18/19 17:08 03/19/19 14:03 Reglan PO 10 mg Q6H PRN Administration Nausea And Vomiting Miscellaneous Medication 1 each 03/18/19 17:15 Fentanyl [Fentanyl] TD Q72H JOSE Ondansetron HCl 4 mg 03/18/19 17:08 03/19/19 10:12 Zofran IV 4 mg Q8H PRN Administration Nausea And Vomiting Oxycodone HCl 30 mg 03/18/19 17:32 03/19/19 09:46 Roxicodone PO 30 mg Q6H PRN Administration Pain, Moderate (4-6) Potassium Chloride 40 meq 03/19/19 16:30 K-Dur PO 03/19/19 17:30 ONCE NR Promethazine HCl 25 mg 03/18/19 17:08 Phenergan [place] Q6H PRN Nausea And Vomiting Sodium Chloride 10 ml 03/18/19 17:08 Sodium Chloride Flush Syringe 10 Ml IV PRN PRN LINE FLUSH Zolpidem Tartrate 10 mg 03/18/19 22:00 03/18/19 21:06 Ambien PO 10 mg QHS JOSE Administration Nutrition/Malnutrition Assess - Dietary Evaluation Nutrition/Malnutrition Findings: Nutrition Notes Start: 03/19/19 10:54 Freq: Status: Active Protocol: Document 03/19/19 10:54 RS (Rec: 03/19/19 12:44 RS [id number]) Co-Sign 03/19/19 10:54 LP Nutrition Notes Need for Assessment [facility] Initial or Follow up Assessment Other Pertinent Diagnosis OA, Arnold Chiari Malformation Current Diet Regular diet Labs/Tests K: 2.6 BUN: 22 Pertinent Medications Liptor, Reglan, Zofran Height 5 ft 6 in Weight 90.4 kg Usual Body Weight 93 kg [place] Body Weight (kg) 59.09 BMI 32.1 Intake Prior to Admission Fair Weight change and time frame UBW taken from previous adm () wt loss of 3.2% body wt since previous adms Weight Status Obese Subjective/Other Information Pt reported nausea, no vomiting/diaherrea. Pt did not eat breakfast this morning. Reports she eats less than half of her meals since arriving to hospital. 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 Burn Absent Trauma Absent GI Symptoms Nausea Food Allergy No Current % PO Poor (25-49%) Minimum of two criteria No #1 Nutrition Diagnosis Inadequate oral intake Etiology nausea As Evidenced by Signs and Symptoms pt self report eating <50% of meals (03/18/19) and not eating bfast (03/19/19) Is patient on ventilator? No Is Patient Ambulatory and/or Out of Bed No REE-([facility]-confined to bed) 1829.004 Calculation Used for Recommendations Kcal/kg Additional Notes kcal needs: 15-20kcal/kg ABW 1350-1800kcal/day Pro Needs: 1.0-1.2g/kg AdjBW 75-90g/day Fluid: 1mL/kcal Nutrition Intervention Change Diet Order: Continue regular diet Goal #1 Meet >75% EER and Pro intake Anticipated Discharge Needs: Continue regular diet post discharge Follow-Up By: 03/23/19 Additional Comments F/U for stable PO intake
[2019-03-19] MEDS ORDERED: DURAGESIC TD SCH (20:00)
[2019-03-19] MEDS: AMBIEN PO SCH (21:39)
[2019-03-20] MEDS: KCL 10MEQ/100ML 10 MEQ/100 ML BAG IV SCH ×2 (04:21→05:44)
[2019-03-20] MEDS: NACL 0.9% 500 ML 500 ML IV ONE ×2 (04:22→05:43)
[2019-03-20] MEDS: ROXICODONE PO PRN ×2 (04:45→11:51)
[2019-03-20] MEDS ORDERED: K-DUR PO ONE ×3 (05:30→13:30)
[2019-03-20] MEDS: ASPIRIN PO SCH (09:39)
[2019-03-20] MEDS: SOMA PO SCH ×2 (09:39→13:32)
[2019-03-20 12:12] VITALS: BP 123/67
--- NOTE | 2019-03-20 14:03 | Discharge Summary ---
Providers - Providers Date of Admission: 03/18/19 17:09 Date of discharge: 03/20/19 Attending physician: ADY JIMENES 03/18/19 Consult to Physician [CONS] Routine Comment: Consulting Provider: WAQAS MARTINEZ Physician Instructions: Reason For Exam: cva 03/18/19 17:09 Occupational Therapy Evaluate and Treat [CONS] Routine Comment: Reason For Exam: Neuro deficits Physical Therapy Evaluation and Treat [CONS] Routine Comment: Reason For Exam: Neuro deficits 03/19/19 12:26 Speech Therapy Evaluation and Treat [CONS] Stat Reason For Exam: CVA 03/19/19 16:01 Consult to Physician [CONS] Routine Comment: Consulting Provider: ANALILIA LANG Physician Instructions: Reason For Exam: cva, chronic pain Primary care physician: DATABASE MANAGEMENT SPECIALIST Hospitalization Reason for admission: right sided weakness Condition: Fair Hospital course: 53 YO Female with Nicotine Dependence, OA, Migraine 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 Pt was evaluated by Neurology and believed to have sxs from multiple cervical radiculopathies involving right C5- C7 and L4 - S1. Also, OA of right hip and probably right knee. Neurology did not feel pt suffered a stroke. Pt was also seen by her primary neurologist as well who was in agreement. Pt. will be discharged home and is to f/u with Dr. Lang. Outpatient MRI of cervical and lumbar spine. Ortho f/u as Outpatient to be arranged by Dr. Lang. D/c time 34 minutes Disposition: -01 TO HOME OR SELFCARE Time spent for discharge: 34 - Discharge Diagnoses (1) Radiculopathy of cervical region Status: Acute (2) Radiculopathy of lumbar region Status: Acute (3) Osteoarthritis Status: Acute (4) Hypertension Status: Chronic Qualifiers: Hypertension type: unspecified Qualified Code(s): I10 - Essential (primary) hypertension Comment: HTN uncontrolled Core Measure Documentation - Palliative Care Palliative Care/ Comfort Measures: Not Applicable - Core Measures Any of the following diagnoses?: none Exam - Constitutional Vitals: Temp Pulse Resp BP Pulse Ox 98.2 F 81 18 123/67 96 03/20/19 12:10 03/20/19 12:10 03/20/19 12:10 03/20/19 12:10 03/20/19 12:10 General appearance: Present: no acute distress, well-nourished - EENT Eyes: Present: PERRL ENT: hearing intact, clear oral mucosa - Neck Neck: Present: supple, normal ROM - Respiratory Respiratory effort: normal Respiratory: bilateral: CTA - Cardiovascular Heart Sounds: Present: S1 & S2. Absent: rub, click - Extremities Extremities: pulses symmetrical, No edema Peripheral Pulses: within normal limits - Abdominal General gastrointestinal: Present: soft, non-tender, non-distended, normal bowel sounds Female genitourinary: Present: normal - Integumentary Integumentary: Present: clear, warm, dry - Musculoskeletal Musculoskeletal: gait normal, strength equal bilaterally - Psychiatric Psychiatric: appropriate mood/affect, intact judgment & insight - Neurologic Neurologic: CNII-XII intact, moves all extremities Plan Activity: advance as tolerated Weight Bearing Status: Weight Bear as Tolerated Diet: regular Follow up with: SALLY SONI MD [Primary Care Provider] - 7 Days ANALILIA LANG MD [Staff Physician] - 7 Days
--- NOTE | 2019-03-20 17:08 | Progress Note ---
Subjective Date of service: 03/20/19 Interval history: she my discharge note on the patient the CT is stable and there is no acute stroke I feel most of her problems related to chronic seizures/prior MCA stroke developmental and problems with frequent falls as she is known to have aseptic necrosis of the femoral heads... Andreas not recommend inpatinet w/u as I have seen her in office next schweduled refill date for meds is 03/27 therefore no refill at this time as I wll handle from office Objective - Vital Sign Vital Signs - 12hr 03/20/19 03/20/19 03/20/19 05:21 08:31 10:00 Temperature 98.3 F 98.4 F Pulse Rate 87 84 83 Respiratory 20 18 Rate Blood Pressure 137/90 144/99 O2 Sat by Pulse 93 92 Oximetry 03/20/19 12:10 Temperature 98.2 F Pulse Rate 81 Respiratory 18 Rate Blood Pressure 123/67 O2 Sat by Pulse 96 Oximetry - Laboratory Findings CBC and BMP: 03/18/19 14:47 03/20/19 08:16 Abnormal Lab Findings: Abnormal Labs 03/18/19 03/18/19 03/18/19 14:47 14:47 14:47 RBC 5.17 H Hgb 15.9 H Hct 46.1 H MCHC 35 H APTT 23.7 L Potassium 2.7 L* BUN 20 H Glucose 145 H Total Creatine Kinase 28 L HDL Cholesterol 03/19/19 03/19/19 03/19/19 04:04 04:14 23:23 RBC Hgb Hct MCHC APTT Potassium 2.6 L* 2.8 L* BUN 22 H Glucose Total Creatine Kinase HDL Cholesterol 38 L 03/20/19 08:16 RBC Hgb Hct MCHC APTT Potassium 3.5 L D BUN Glucose Total Creatine Kinase HDL Cholesterol
--- NOTE | 2019-03-21 07:27 | Consultation ---
HISTORY OF PRESENT ILLNESS: This is a 53-year-old white female who presents to [facility] on 03/18/2019. She presented to the hospital with headaches, dizziness, and confusion. She apparently had fallen in her home, possibly 4-5 days ago. This patient is well known to me. I have seen her in the past regarding problems with ambulation, gait, as she has a prior history of bilateral compression fractures of both hips. She presented to the hospital being confused, perhaps having a seizure. I have known the patient for many years. She has had several episodes of seizures in the past. She has a prior medical history of probably having onset of stroke in childhood. Review of her past CAT scans and MRI scans have shown a very subtle lesion in the left frontal lobe along the perisylvian area and widening of the cortical sulcal pattern and sylvian fissure seen on numerous images indicative of probably a childhood stroke. She has had a marked loss of tissue in this region over the past several years, and certainly on looking at the CT scan today compared to the earlier CT scans, I see progressive atrophy, loss of cortical definition and white matter atrophy in the left hemisphere, very suggestive of a progressive atrophic process. She has widening of the ventricular horn and lateral horn of the ventricular system and also evidence of some cystic changes in the subcortical region present on the superior cuts. Overall, from comparing this CAT scan to the previous ones, this process is certainly worsened and certainly may be equivalent to her seizures and severe dizziness attacks. The patient has a prior medical history that indicates she may have had some childhood trauma that is responsible for this. She has continued to have problems with ataxia, continuing problems with frequent falls. The patient, when she presented to the Emergency Room, was assessed and thought to have had a stable infarct in the left hemisphere, according to the persons reviewing the record. On my examination; however, comparing this to previous records, this area of loss of tissue in the left hemisphere is larger than previously. In the past, she has been admitted to [facility] for a similar problem. She was thought to have recurrent stroke at that time, at least on several occasions she has received tPA without any benefit. On my examination today, she is alert, very ataxic, continues to have weakness of both lower extremities, staggering gait, which has not changed from before. She alleges that she has had a recent knee injury and so she does have some tenderness around the left knee, which is associated with pain. She is alert and oriented. She is slightly more aphasic than when I have seen her. She seems almost to be postictal, not acting like herself and short memory she was before. 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 I do not think any further workup is necessary. She is not a surgical candidate given her past history and she will be continued on seizure medicines with Vimpat and Briviact. I do not see any need for any further neurological workup because she does not have vascular lesions from when she was in [facility]. JOB# [id number] NANCI/NIKKIE
== END 2019-03-20 15:40 | disposition home or self-care (01) | DRG 73 ==
LOC: ED 14:24 → 4A 17:09
PROVIDERS: ADMIT Internal Medicine; ATTEND Hospitalist
DX: M54.12 Radiculopathy, cervical region (principal); G93.40 Encephalopathy, unspecified; M54.16 Radiculopathy, lumbar region; G43.909 Migraine, unspecified, not intractable, without status migrainosus; E66.9 Obesity, unspecified; F17.210 Nicotine dependence, cigarettes, uncomplicated; Z68.31 Body mass index [BMI] 31.0-31.9, adult; M16.11 Unilateral primary osteoarthritis, right hip
CPT/HCPCS: 36415; 70450; 80048; 80053; 80061; 80307; 81001; 82550; 82553; 82962; 84132; 84484; 85025; 85610; 85670; 85730; 87116; 93005; 93010; 93306; 93880; 99406; G0378; A9270-GY; J0360; J2405; J3480; J7040

== ENCOUNTER 2019-04-19 18:04 | Emergency (ER) | payer MEDICAID ==
--- NOTE | 2019-04-19 18:11 | Emergency Department Report ---
Blank Doc - Documentation Documentation: 53-year-old female that presents with right hip and knee pain s/p fall. Stated has history of chornic right hip pain and fracture., Denies any other trauma or injuries. This initial assessment/diagnostic orders/clinical plan/treatment(s) is/are subject to change based on patient's health status, clinical progression and re- assessment by fellow clinical providers in the ED. Further treatment and workup at subsequent clinical providers discretion. Patient/guardians urged not to elope from the ED as their condition may be serious if not clinically assessed and managed. Initial orders include: 1- Patient sent to [facility] for further evaluation and treatment 2- xrays
--- NOTE | 2019-04-19 19:09 | XRay Report ---
RIGHT KNEE 3 VIEWS INDICATION / CLINICAL INFORMATION: pain s/p fall. COMPARISON: None available. FINDINGS: No fracture, dislocation or right knee effusion is present. Joint spaces are well preserved on these nonweightbearing views. Signer Name: Miguel Valiente MD Signed: 04/19/2019 7:05 PM Workstation Name: [id number]
--- NOTE | 2019-04-19 19:09 | XRay Report ---
RIGHT HIP 2 VIEW(S) INDICATION / CLINICAL INFORMATION: pain s/p fall COMPARISON: None available. FINDINGS: BONES / JOINT(S): Osteonecrosis right femoral head with subchondral collapse and "crescent sign" with mild degenerative arthrosis of right hip . No fracture of pelvis or right femoral neck. SOFT TISSUES: No significant abnormality. ADDITIONAL FINDINGS: None. 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 Signer Name: Miguel Valiente MD Signed: 04/19/2019 7:04 PM Workstation Name: [id number]
[2019-04-19] MEDS ORDERED: traMADol 50 MG TAB PO ONE (20:19)
[2019-04-19] MEDS ORDERED: predniSONE 50 MG TAB PO ONE (20:19)
[2019-04-19] MEDS ORDERED: ACETAMINOPHEN 500 MG TAB PO ONE (20:20)
--- NOTE | 2019-04-19 20:46 | Emergency Department Report ---
ED Fall HPI - General Chief Complaint: Extremity Injury, Lower Stated Complaint: HIP/KNEE INJURY Time Seen by Provider: 04/19/19 18:08 Source: patient Mode of arrival: Ambulatory - History of Present Illness Initial Comments: Patient is a 53-year-old white female with history of chronic degenerative joint disease, chronic hip pain from an old fracture who presents to the ED with complaint of acute onset persistent severe right knee and right hip pain after she tripped on the cord when walking the dog 2 days ago. Patient denies head or neck injury, back pain, chest pain, dizziness, syncope, seizures, chest pain, shortness of breath, numbness and tingling or weakness of lower extremities bilaterally, urinary or bowel incontinence or saddle paresthesia. Patient states that the pain is worse with ambulation or any active range of motion. 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 denies: headache, neck pain, numbness, chest paint, shortness of breath, hematuria, lightheaded, confusion - Related Data Home Medications Medication Instructions Recorded Confirmed Last Taken fentaNYL [Fentanyl] 1 each TD Q72H 12/18/15 03/18/19 03/15/19 Oxycodone HCl [Roxicodone TAB] 30 mg PO QID PRN 06/24/16 03/18/19 03/17/19 Carisoprodol [Soma] 350 mg PO QID 11/08/16 03/18/19 03/17/19 Zolpidem [Ambien] 10 mg PO QHS 11/08/16 03/18/19 03/17/19 Oxycodone HCl [roxiCODONE] 30 mg PO QID 03/18/19 03/18/19 03/17/19 Previous Rx's Medication Instructions Recorded Last Taken Type Acetaminophen [Tylenol Arthritis] 650 mg PO Q6HR PRN #30 tablet.er 03/02/18 03/17/19 Rx fentaNYL [Duragesic] 75 mcg TD Q3D patch 03/20/19 Unknown Rx tiZANidine [Zanaflex 4mg TAB] 4 mg PO Q8H PRN #24 tablet 04/19/19 Unknown Rx traMADol [Ultram] 50 mg PO Q6HR PRN #15 tablet 04/19/19 Unknown Rx Allergies Allergy/AdvReac Type Severity Reaction Status Date / Time hydrocodone Allergy Vomiting Verified 01/14/19 20:25 ketorolac tromethamine Allergy Anaphylaxis Verified 01/14/19 20:25 [From Toradol] meperidine HCl [From Demerol] Allergy Swelling Verified 01/14/19 20:25 morphine Allergy Rash Verified 01/14/19 20:25 ED Review of Systems ROS: Stated complaint: HIP/KNEE INJURY Other details as noted in HPI Constitutional: denies: chills, fever Eyes: denies: eye pain, eye discharge, vision change ENT: denies: ear pain, throat pain Respiratory: denies: cough, shortness of breath, wheezing Cardiovascular: denies: chest pain, palpitations Endocrine: no symptoms reported Gastrointestinal: denies: abdominal pain, nausea, diarrhea Genitourinary: denies: urgency, dysuria, discharge Musculoskeletal: arthralgia (right hip, right knee), myalgia. denies: back pain, joint swelling Skin: denies: rash, lesions Neurological: denies: headache, weakness, paresthesias Psychiatric: denies: anxiety, depression Hematological/Lymphatic: denies: easy bleeding, easy bruising ED Past Medical Hx - Past Medical History Hx Hypertension: No Hx Congestive Heart Failure: No Hx Diabetes: No Hx Arthritis: No Hx Headaches / Migraines: Yes (Complex) Hx Seizures: No Hx Asthma: No Hx COPD: No Hx Dementia: No Hx HIV: No Additional medical history: Arnold Chiari malformation. ruptured disc in back. TIA. meningitis x6 - Surgical History Hx Cholecystectomy: Yes Additional Surgical History: Arnold-Chiari malformation repaired, cyst removed from left neck - Social History Smoking Status: Current Every Day Smoker Substance Use Type: None - Medications Home Medications: Home Medications Medication Instructions Recorded Confirmed Last Taken Type fentaNYL [Fentanyl] 1 each TD Q72H 12/18/15 03/18/19 03/15/19 History Oxycodone HCl [Roxicodone TAB] 30 mg PO QID PRN 06/24/16 03/18/19 03/17/19 History Carisoprodol [Soma] 350 mg PO QID 11/08/16 03/18/19 03/17/19 History Zolpidem [Ambien] 10 mg PO QHS 11/08/16 03/18/19 03/17/19 History Acetaminophen [Tylenol Arthritis] 650 mg PO Q6HR PRN #30 tablet.er 03/02/18 03/18/19 03/17/19 Rx Oxycodone HCl [roxiCODONE] 30 mg PO QID 03/18/19 03/18/19 03/17/19 History fentaNYL [Duragesic] 75 mcg TD Q3D patch 03/20/19 Unknown Rx tiZANidine [Zanaflex 4mg TAB] 4 mg PO Q8H PRN #24 tablet 04/19/19 Unknown Rx traMADol [Ultram] 50 mg PO Q6HR PRN #15 tablet 04/19/19 Unknown Rx ED Physical Exam - General Limitations: No Limitations General appearance: alert, in no apparent distress - Head Head exam: Present: atraumatic, normocephalic, normal inspection - Eye Eye exam: Present: normal appearance, PERRL, EOMI Pupils: Present: normal accommodation - ENT ENT exam: Present: normal exam, normal orophraynx, mucous membranes moist, TM's normal bilaterally, normal external ear exam - Neck Neck exam: Present: normal inspection, full ROM. Absent: tenderness - Respiratory Respiratory exam: Present: normal lung sounds bilaterally. Absent: respiratory distress, wheezes, rales, chest wall tenderness, accessory muscle use, prolonged expiratory - Cardiovascular Cardiovascular Exam: Present: regular rate, normal rhythm, normal heart sounds. Absent: systolic murmur, diastolic murmur, rubs, gallop - GI/Abdominal GI/Abdominal exam: Present: soft, normal bowel sounds. Absent: tenderness, guarding, hyperactive bowel sounds, hypoactive bowel sounds, organomegaly - Extremities Exam Extremities exam: Present: normal inspection, full ROM, tenderness (Palpable right hip and knee tenderness), normal capillary refill - Back Exam Back exam: Present: normal inspection, full ROM. Absent: tenderness, CVA tenderness (L), muscle spasm, paraspinal tenderness - Neurological Exam Neurological exam: Present: alert, oriented X3, CN II-XII intact, normal gait, reflexes normal - Psychiatric Psychiatric exam: Present: normal affect, normal mood - Skin Skin exam: Present: warm, dry, intact, normal color. Absent: rash ED Course Vital Signs 04/19/19 04/19/19 18:09 20:35 Temperature 98.8 F Pulse Rate 95 H Respiratory 20 18 Rate Blood Pressure 168/99 O2 Sat by Pulse 98 Oximetry - Reevaluation(s) Reevaluation #1: 04/19/19 20:51 This is a 53-year-old female who presented to the ED with right knee and right hip pain after she tripped and fell down at home 2 days ago. She doesn't history of chronic right hip pain from an old fracture of the hip joint that was never corrected. In the ED, patient is alert and oriented 3 and is not in distress but appears to be in pain. Patient was treated for pain in the ED and right knee x-ray shows no acute fractures or subluxations. Right hip x-ray shows osteonecrosis right femoral head with subchondral collapse and "crescent sign" with mild degenerative arthrosis of right hip . No fracture of pelvis or right femoral neck. Patient's right knee was splinted with Cm wrap and patient also fitted with crutches in the ED. Patient was advised to follow-up with the orthopedic surgeon Dr. Torres for evaluation of her chronic right hip pain and injury. Patient was discharged home on pain medications and muscle relaxants. Patient advised to return to the ED immediately if symptoms get worse. ED Medical Decision Making - Radiology Data Radiology results: report reviewed, image reviewed Findings [facility] [address] [place] [address] XRay Report Signed Patient: BRITTANY GOLDBERG MR#: [id number] : 1965 Acct:[id number] Age/Sex: 53 / F ADM Date: 04/19/19 Loc: ED Attending Dr: Ordering Physician: TERESITA MICHAELS NP Date of Service: 04/19/19 Procedure(s): XR hip 2-3V RT Accession Number(s): [id number] cc: TERESITA MICHAELS NP Fluoro Time In Minutes: RIGHT HIP 2 VIEW(S) INDICATION / CLINICAL INFORMATION: pain s/p fall COMPARISON: None available. FINDINGS: BONES / JOINT(S): Osteonecrosis right femoral head with subchondral collapse and "crescent sign" with mild degenerative arthrosis of right hip . No fracture of pelvis or right femoral neck. SOFT TISSUES: No significant abnormality. ADDITIONAL FINDINGS: None. 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 Signer Name: Miguel Valiente MD Signed: 04/19/2019 7:04 PM Workstation Name: [id number] Transcribed By: TL Dictated By: Miguel Valiente MD Electronically Authenticated By: Miguel Valiente MD Signed Date/Time: 04/19/191903 DD/ 02 TD/TT: - Medical Decision Making This is a 53-year-old female who presented to the ED with right knee and right hip pain after she tripped and fell down at home 2 days ago. She doesn't history of chronic right hip pain from an old fracture of the hip joint that was never corrected. In the ED, patient is alert and oriented 3 and is not in distress but appears to be in pain. Patient was treated for pain in the ED and right knee x-ray shows no acute fractures or subluxations. Right hip x-ray shows osteonecrosis right femoral head with subchondral collapse and "crescent sign" with mild degenerative arthrosis of right hip . No fracture of pelvis or right femoral neck. Patient's right knee was splinted with Cm wrap and patient also fitted with crutches in the ED. Patient was advised to follow-up with the orthopedic surgeon Dr. Torres for evaluation of her chronic right hip pain and injury. Patient was discharged home on pain medications and muscle relaxants. Patient advised to return to the ED immediately if symptoms get worse. - Differential Diagnosis right contusion; right knee sprain; right hip osteoathritis Critical care attestation.: If time is entered above; I have spent that time in minutes in the direct care of this critically ill patient, excluding procedure time. ED Disposition Clinical Impression: Chronic right hip pain Sprain of right knee Qualifiers: Encounter type: initial encounter Involved ligament of knee: unspecified ligament Qualified Code(s): S83.91XA - Sprain of unspecified site of right knee, initial encounter Degenerative joint disease of right hip Qualifiers: Osteoarthritis type: primary Qualified Code(s): M16.11 - Unilateral primary osteoarthritis, right hip Disposition: TO HOME OR SELFCARE Is pt being admited?: No Does the pt Need Aspirin: No Condition: Stable Instructions: Knee Sprain (ED), Arthralgia (ED) Additional Instructions: Take medication with food, drink plenty of fluids and follow-up with your primary care physician or consider following up with Dr. Torres, the orthopedic surgeon as advice. Return to the ED immediately if symptoms get worse. Prescriptions: traMADol [Ultram] 50 mg PO Q6HR PRN #15 tablet PRN Reason: Pain tiZANidine [Zanaflex 4mg TAB] 4 mg PO Q8H PRN #24 tablet PRN Reason: Muscle Spasm Referrals: CONNOR TORRES MD [Staff Physician] - 3-5 Days Time of Disposition: 20:43 Print Language: NAMIBIAN
[2019-04-19 21:40] VITALS: BP 169/89
== END 2019-04-19 21:40 | disposition home or self-care (01) ==
LOC: ED 18:04
DX: S83.91XA Sprain of unspecified site of right knee, initial encounter (principal); M16.11 Unilateral primary osteoarthritis, right hip; G43.909 Migraine, unspecified, not intractable, without status migrainosus; Z90.49 Acquired absence of other specified parts of digestive tract; F17.200 Nicotine dependence, unspecified, uncomplicated; Z79.899 Other long term (current) drug therapy; Z88.6 Allergy status to analgesic agent; Z88.8 Allergy status to other drugs, medicaments and biological substances; W01.0XXA Fall on same level from slipping, tripping and stumbling without subsequent striking against object, initial encounter; Y93.89 Activity, other specified; Y92.89 Other specified places as the place of occurrence of the external cause; Y99.8 Other external cause status
CPT/HCPCS: 73502; 73562; 99283; J7512

== ENCOUNTER 2019-06-12 03:50 | Emergency (ER) | payer MEDICAID ==
[2019-06-12 04:01] VITALS: BP 191/123
[2019-06-12] MEDS ORDERED: ONDANSETRON 4 MG/2 ML INJ IM ONE (04:43)
--- NOTE | 2019-06-12 04:59 | Emergency Department Report ---
ED General Adult HPI - General Chief complaint: Headache Stated complaint: NAUSEA/EMESIS Time Seen by Provider: 06/12/19 04:16 Source: patient Mode of arrival: Ambulatory Limitations: No Limitations - History of Present Illness Initial comments: 53-year-old female comes in with intermittent nausea vomiting 3 days. Patient states she has a history of TIAs. Patient reports she has vomited 5 times. She has been nauseated for the last 48 hours. She does admit to chills but denies any fever. Patient reports she does not drink alcohol but does smoke cigarettes. Patient denies any illicit drug use. Patient is currently on Roxicodone 30 mg 4 times a day when necessary. Onset/Timin -: days(s) Location: head Severity scale (0 -10): 8 Consistency: intermittent Associated Symptoms: nausea/vomiting Treatments Prior to Arrival: other (Roxicodone 30 mg) - Related Data Home Medications Medication Instructions Recorded Confirmed Last Taken fentaNYL [Fentanyl] 1 each TD Q72H 12/18/15 03/18/19 03/15/19 Oxycodone HCl [Roxicodone TAB] 30 mg PO QID PRN 06/24/16 03/18/19 03/17/19 Carisoprodol [Soma] 350 mg PO QID 11/08/16 03/18/19 03/17/19 Zolpidem [Ambien] 10 mg PO QHS 11/08/16 03/18/19 03/17/19 Oxycodone HCl [roxiCODONE] 30 mg PO QID 03/18/19 03/18/19 03/17/19 Previous Rx's Medication Instructions Recorded Last Taken Type Acetaminophen [Tylenol Arthritis] 650 mg PO Q6HR PRN #30 tablet.er 03/02/18 03/17/19 Rx fentaNYL [Duragesic] 75 mcg TD Q3D patch 03/20/19 Unknown Rx tiZANidine [Zanaflex 4mg TAB] 4 mg PO Q8H PRN #24 tablet 04/19/19 Unknown Rx traMADoL [Ultram] 50 mg PO Q6HR PRN #15 tablet 04/19/19 Unknown Rx Allergies Allergy/AdvReac Type Severity Reaction Status Date / Time hydrocodone Allergy Vomiting Verified 01/14/19 20:25 ketorolac tromethamine Allergy Anaphylaxis Verified 01/14/19 20:25 [From Toradol] meperidine HCl [From Demerol] Allergy Swelling Verified 01/14/19 20:25 morphine Allergy Rash Verified 01/14/19 20:25 ED Review of Systems ROS: Stated complaint: NAUSEA/EMESIS Other details as noted in HPI Comment: All other systems reviewed and negative ED Past Medical Hx - Past Medical History Previous Medical History?: Yes Hx Hypertension: No Hx Congestive Heart Failure: No Hx Diabetes: No Hx Arthritis: No Hx Headaches / Migraines: Yes (Complex) Hx Seizures: No Hx Asthma: No Hx COPD: No Hx Dementia: No Hx HIV: No Additional medical history: Arnold Chiari malformation. ruptured disc in back. TIA. meningitis x6 - Surgical History Past Surgical History?: Yes Hx Cholecystectomy: Yes Additional Surgical History: Arnold-Chiari malformation repaired, cyst removed from left neck - Social History Smoking Status: Current Every Day Smoker Substance Use Type: None - Medications Home Medications: Home Medications Medication Instructions Recorded Confirmed Last Taken Type fentaNYL [Fentanyl] 1 each TD Q72H 12/18/15 03/18/19 03/15/19 History Oxycodone HCl [Roxicodone TAB] 30 mg PO QID PRN 06/24/16 03/18/19 03/17/19 History Carisoprodol [Soma] 350 mg PO QID 11/08/16 03/18/19 03/17/19 History Zolpidem [Ambien] 10 mg PO QHS 11/08/16 03/18/19 03/17/19 History Acetaminophen [Tylenol Arthritis] 650 mg PO Q6HR PRN #30 tablet.er 03/02/18 03/18/19 03/17/19 Rx Oxycodone HCl [roxiCODONE] 30 mg PO QID 03/18/19 03/18/19 03/17/19 History fentaNYL [Duragesic] 75 mcg TD Q3D patch 03/20/19 Unknown Rx tiZANidine [Zanaflex 4mg TAB] 4 mg PO Q8H PRN #24 tablet 04/19/19 Unknown Rx traMADoL [Ultram] 50 mg PO Q6HR PRN #15 tablet 04/19/19 Unknown Rx ED Physical Exam - General Limitations: No Limitations General appearance: alert, in no apparent distress - Head Head exam: Present: atraumatic, normocephalic - Eye Eye exam: Present: normal appearance - ENT ENT exam: Present: mucous membranes moist - Respiratory Respiratory exam: Present: normal lung sounds bilaterally. Absent: respiratory distress - Back Exam Back exam: Present: normal inspection, full ROM - Neurological Exam Neurological exam: Present: alert, oriented X3 - Expanded Neurological Exam Expanded Patient oriented to: Present: person, place, time Cranial nerves: EOM's Intact: Normal, Gag Reflex: Normal, Tongue Deviation: Normal, Nystagmus: Normal, Facial Sensation: Normal, Facial Palsy with Forehead Movement: Normal, Facial Palsy without Forehead Movement: Normal Cerebellar function: Finger to Nose: Normal, Heel to Batista: Normal, Romberg: Normal Sensory exam: Upper Extremity Light Touch: Normal, Upper Extremity Pin Prick: Normal, Upper Extremity Temperature: Normal, UE 2 Point Discrimination: Normal, Lower Extremity Light Touch: Normal, Lower Extremity Pin Prick: Normal, Lower Extremity Temperature: Normal, LE 2 Point Discrimination: Normal Motor strength exam: RUE: 4, LUE: 4, RLE: 4, LLE: 4 - Psychiatric Psychiatric exam: Present: normal affect, normal mood ED Course Vital Signs 06/12/19 03:53 Temperature 97.2 F L Pulse Rate 101 H Respiratory 14 Rate Blood Pressure 191/123 O2 Sat by Pulse 98 Oximetry ED Medical Decision Making - Medical Decision Making 53-year-old female comes in with intermittent nausea vomiting 3 days. Patient states she has a history of TIAs. Patient reports she has vomited 5 times. She has been nauseated for the last 48 hours. She does admit to chills but denies any fever. Patient reports she does not drink alcohol but does smoke cigarettes. Patient denies any illicit drug use. Patient is currently on Roxicodone 30 mg 4 times a day when necessary. Patient declines Zofran. Patient eloped. Critical care attestation.: If time is entered above; I have spent that time in minutes in the direct care of this critically ill patient, excluding procedure time. ED Disposition Clinical Impression: Nausea & vomiting, Headache Disposition: ELOPED Is pt being admited?: No Does the pt Need Aspirin: No Condition: Undetermined Referrals: PRIMARY CARE, [Primary Care Provider] - 3-5 Days
== END 2019-06-12 06:49 | disposition left against medical advice (07) ==
LOC: ED 03:50
DX: R11.2 Nausea with vomiting, unspecified (principal); Z53.21 Procedure and treatment not carried out due to patient leaving prior to being seen by health care provider
CPT/HCPCS: 99281; J2405

== ENCOUNTER 2019-08-13 19:26 | Observation (INO) | payer MEDICAID ==
--- NOTE | 2019-08-13 21:48 | Event Note ---
ED Screening Note Date of service: 08/13/19 Time: 21:46 ED Screening Note: pt is 54 y/o female that presents to er for koroma, rt side weakness, rt side numbness. sxs started at 630pm. code cva called. This initial assessment/diagnostic orders/clinical plan/treatment(s) is/are subject to change based on patients health status, clinical progression and re- assessment by fellow clinical providers in the ED. Further treatment and workup at subsequent clinical providers discretion. Patient/guardian urged not to elope from the ED as their condition may be serious if not clinically assessed and managed. Initial orders include: cva protocol
[2019-08-13 22:29] LABS: Basophils # (Auto) 0.2 K/mm3 (0.0-0.1); Basophils % (Auto) 1.3 % (0.0-1.8); Eosinophils # (Auto) 0.1 K/mm3 (0.0-0.4); Eosinophils % (Auto) 0.6 % (0.0-4.3); Hematocrit 42.6 % (30.3-42.9); Hemoglobin 14.9 gm/dl (10.1-14.3); Lymphocytes # (Auto) 2.2 K/mm3 (1.2-5.4); Lymphocytes % (Auto) 17.4 % (13.4-35.0); Mean Corpuscular HGB Conc 35 % (30-34); Mean Corpuscular Volume 90 fl (79-97); Monocytes # (Auto) 0.7 K/mm3 (0.0-0.8); Monocytes % (Auto) 5.4 % (0.0-7.3); Platelet Count 309 K/mm3 (140-440); Red Blood Count 4.73 M/mm3 (3.65-5.03); Red Cell Distribution Width 14.3 % (13.2-15.2)
--- NOTE | 2019-08-13 22:33 | Cat Scan Report ---
CT head without contrast INDICATION : Code stroke. Stroke symptoms. TECHNIQUE: Axial imaging performed from the skull apex through the skull base without the use of con trast. All CT examinations performed at this facility utilize dose modulation, iterative reconstruct ion or weight-based dosing, when appropriate, to reduce radiation dose to as low as reasonably achiev able. COMPARISON: 03/18/2019 FINDINGS: No acute intracranial hemorrhage or parenchymal abnormality. Chronic appearing left MCA di stribution infarct/encephalomalacia noted. No change from the prior exam. Ventricles are normal in si ze and appear symmetric. Soft tissues including the orbits appear normal. No acute osseous abnorm ality. Sinuses and mastoid air cells are clear. IMPRESSION: No acute abnormality. Chronic left MCA distribution infarct noted CRITICAL RESULT: Time of Discovery: 9:28 PM central standard time on the day of the exam Time of Communication: 9:30 PM central standard time on the day of the exam Licensed Practitioner Receiving Report: Dr. Leyva Read Back Performed: Yes. Signer Name: Emory Gutierres MD Signed: 08/13/2019 10:28 PM Workstation Name: [id number]
--- NOTE | 2019-08-13 22:38 | Emergency Department Report ---
HPI - General Chief Complaint: Neuro Symptoms/Deficit Time Seen by Provider: 08/13/19 22:31 - HPI HPI: [facility] Tele[facility]rology [facility] Date of Service: 08/13/2019 21:53:22 Impression: RO Acute Ischemic Stroke Comments: Headache with paresthesia and R leg > arm weakness concerning for recurrence of stroke sxs in setting of hypertensive urgency and potentially migraine, can't exclude acute ischemic process in L [place] territory. not iv alteplase candidate as sxs onset greater than 4.5 hrs and recurrence of previous stroke sxs. Low suspicion for LVO by clinical examination. Metrics: Last Known Well: 08/13/2019 16:30:00 [facility] Notification Time: 08/13/2019 21:52:22 Arrival Time: 08/13/2019 19:26:00 Stamp Time: 08/13/2019 21:53:22 Time First Login Attempt: 08/13/2019 21:58:00 Video Start Time: 08/13/2019 22:02:00 Symptoms: headache and right sided numbness NIHSS Start Assessment Time: 08/13/2019 22:05:00 Patient is not a candidate for tPA. Patient was not deemed candidate for tPA thrombolytics because of Last Well Known Above 4.5 Hours. Video End Time: 08/13/2019 22:11:00 CT head showed no acute hemorrhage or acute core infarct. CT head was reviewed and results were: area of encephalomalacia in Left temporal parietal region. Presentation is not suggestive of Large Vessel Occlusive disease. Advanced imaging was not obtained as the presentation was not suggestive of Large Vessel Occlusive Disease. ED Physician notified of diagnostic impression and management plan on 08/13/2019 22:13:00 Our recommendations are outlined below. Recommendations: Activate Stroke Protocol Admission/Order Set Stroke/Telemetry Floor Neuro Checks Bedside Swallow Eval DVT Prophylaxis IV Fluids, Normal Saline Head of Bed Below 30 Degrees Euglycemia and Avoid Hyperthermia (PRN Acetaminophen) Antiplatelet Therapy Recommended recent NIVS carotid in 03/2019 negative for significant stenosis. ECHO in 03/2019 with LVH, EF 65%, no pfo. recommend treating headache with prn's Check MRI to r/o stroke before considering this a migraine spectrum. will need appropriate secondary stroke prevention. Recommended Scan: MRI Head Without Contrast Lipid Panel to Be Obtained, if Not Done in the Last Three Months Therapies: Physical Therapy, Occupational Therapy, Speech Therapy Assessment When Applicable Dysphaghia Screen: Swallow Evaluation, Bedside NPO Until Swallow Evaluation DVT prophylaxis: Choice of Primary Team Disposition: If needed can consider inpatient Teleneurology Follow up Sign Out: Discussed with Emergency Department Provider History of Present Illness: Patient is a 54 year old Female. Patient was brought by private transportation with symptoms of headache and right sided numbness Patient with self reported Left hemispheric stroke with right sided weakness presents to hospital with recurrence of sxs. She went to bed around 1630 and woke up around 1830 with intense headache and R facial numbness and RUE numbness. She states she came to ED and felt sxs are getting worse. CT scan head was done and is negative for acute process. Patient denies taking any asa or anticoagulant as part of stroke prevention. CT head showed no acute hemorrhage or acute core infarct. CT head was reviewed. Examination: BP(173/114), Pulse(85), Blood Glucose(96) 1A: Level of Consciousness - Alert; keenly responsive + 0 1B: Ask Month and Age - Both Questions Right + 0 1C: Blink Eyes & Squeeze Hands - Performs Both Tasks + 0 2: Test Horizontal Extraocular Movements - Normal + 0 3: Test Visual Sánchez - No Visual Loss + 0 4: Test Facial Palsy (Use Grimace if Obtunded) - Normal symmetry + 0 5A: Test Left Arm Motor Drift - No Drift for 10 Seconds + 0 5B: Test Right Arm Motor Drift - No Drift for 10 Seconds + 0 6A: Test Left Leg Motor Drift - No Drift for 5 Seconds + 0 6B: Test Right Leg Motor Drift - Drift, hits bed + 2 7: Test Limb Ataxia (FNF/Heel-Batista) - No Ataxia + 0 8: Test Sensation - Mild-Moderate Loss: Less Sharp/More Dull + 1 9: Test Language/Aphasia - Normal; No aphasia + 0 10: Test Dysarthria - Normal + 0 11: Test Extinction/Inattention - No abnormality + 0 NIHSS Score: 3 Patient was informed the Neurology Consult would happen via TeleHealth consult by way of interactive audio and video telecommunications and consented to receiving care in this manner. Due to the immediate potential for life-threatening deterioration due to underlying acute neurologic illness, I spent 35 minutes providing critical care. This time includes time for face to face visit via telemedicine, review of medical records, imaging studies and discussion of findings with providers, the patient and/or family. Dr Augustine Olivier [facility] Case [id number] ED Past Medical Hx - Past Medical History Hx Hypertension: No Hx Congestive Heart Failure: No Hx Diabetes: No Hx Arthritis: No Hx Headaches / Migraines: Yes (Complex) Hx Seizures: No Hx Asthma: No Hx COPD: No Hx Dementia: No Hx HIV: No Additional medical history: Arnold Chiari malformation. ruptured disc in back. TIA. meningitis x6 - Surgical History Hx Cholecystectomy: Yes Additional Surgical History: Arnold-Chiari malformation repaired, cyst removed from left neck - Social History Smoking Status: Current Every Day Smoker Substance Use Type: Methamphetamines - Medications Home Medications: Home Medications Medication Instructions Recorded Confirmed Last Taken Type fentaNYL [Fentanyl] 1 each TD Q72H 12/18/15 03/18/19 03/15/19 History Oxycodone HCl [Roxicodone TAB] 30 mg PO QID PRN 06/24/16 03/18/19 03/17/19 History Zolpidem [Ambien] 10 mg PO QHS 11/08/16 03/18/19 03/17/19 History carisoprodoL [Soma] 350 mg PO QID 11/08/16 03/18/19 03/17/19 History Acetaminophen [Tylenol Arthritis] 650 mg PO Q6HR PRN #30 tablet.er 03/02/18 03/18/19 03/17/19 Rx Oxycodone HCl [roxiCODONE] 30 mg PO QID 03/18/19 03/18/19 03/17/19 History fentaNYL [Duragesic] 75 mcg TD Q3D patch 03/20/19 Unknown Rx tiZANidine [Zanaflex 4mg TAB] 4 mg PO Q8H PRN #24 tablet 04/19/19 Unknown Rx traMADoL [Ultram] 50 mg PO Q6HR PRN #15 tablet 04/19/19 Unknown Rx ED Review of Systems ROS: Stated complaint: R SIDE FACIAL NUMBNESS/CERVANTES Other details as noted in HPI Physical Exam - Physical Exam Vital Signs: Vital Signs 08/13/19 19:44 Temperature 98.3 F Pulse Rate 103 H Respiratory 20 Rate Blood Pressure 182/113 O2 Sat by Pulse 95 Oximetry ED Course Vital Signs 08/13/19 19:44 Temperature 98.3 F Pulse Rate 103 H Respiratory 20 Rate Blood Pressure 182/113 O2 Sat by Pulse 95 Oximetry ED Medical Decision Making - Lab Data Result diagrams: 08/13/19 22:05 Critical care attestation.: If time is entered above; I have spent that time in minutes in the direct care of this critically ill patient, excluding procedure time. ED Disposition Clinical Impression: CVA (cerebral vascular accident), Migraine Disposition: OP ADMIT IP TO THIS HOSP Is pt being admited?: Yes Does the pt Need Aspirin: Yes Condition: Stable
--- NOTE | 2019-08-13 22:43 | Emergency Department Report ---
ED Neuro Deficit HPI - General Chief Complaint: Neuro Symptoms/Deficit Stated Complaint: R SIDE FACIAL NUMBNESS/CERVANTES Time Seen by Provider: 08/13/19 22:31 Source: patient Mode of arrival: Ambulatory Limitations: No Limitations - History of Present Illness Initial Comments: Patient is a 54-year-old female that presents emergency room with complaints of right-sided headache, right-sided weakness, right-sided facial numbness. Patient states her symptoms started 6:30pm today. Patient states her symptoms are worsening. Patient states she is having trouble lifting up her rt leg to walk. -: Sudden Location: right face, right arm, right leg Presenting Symptoms: Present: Weak/Paralyzed One Side, Sudden, Severe Headache, Facial Droop/Numbness History of same: Yes Place: home Severity: severe Quality: weak, numb Improves With: none Worsens With: time On Anticoagulants: No Context: sudden onset Associated Symptoms: headaches, weakness. denies: confusion, chest pain, cough, diaphoresis, fever/chills, loss of appetite, malise, nausea/vomiting, vertigo, seizures, shortness of breath, syncope Treatments Prior to Arrival: none - Related Data Home Medications: Home Medications Medication Instructions Recorded Confirmed Last Taken fentaNYL [Fentanyl] 1 each TD Q72H 12/18/15 03/18/19 03/15/19 Oxycodone HCl [Roxicodone TAB] 30 mg PO QID PRN 06/24/16 03/18/19 03/17/19 Zolpidem [Ambien] 10 mg PO QHS 11/08/16 03/18/19 03/17/19 carisoprodoL [Soma] 350 mg PO QID 11/08/16 03/18/19 03/17/19 Oxycodone HCl [roxiCODONE] 30 mg PO QID 03/18/19 03/18/19 03/17/19 Previous Rx's Medication Instructions Recorded Last Taken Type Acetaminophen [Tylenol Arthritis] 650 mg PO Q6HR PRN #30 tablet.er 03/02/18 03/17/19 Rx fentaNYL [Duragesic] 75 mcg TD Q3D patch 03/20/19 Unknown Rx tiZANidine [Zanaflex 4mg TAB] 4 mg PO Q8H PRN #24 tablet 04/19/19 Unknown Rx traMADoL [Ultram] 50 mg PO Q6HR PRN #15 tablet 04/19/19 Unknown Rx Allergies/Adverse Reactions: Allergies Allergy/AdvReac Type Severity Reaction Status Date / Time hydrocodone Allergy Vomiting Verified 01/14/19 20:25 ketorolac tromethamine Allergy Anaphylaxis Verified 01/14/19 20:25 [From Toradol] meperidine HCl [From Demerol] Allergy Swelling Verified 01/14/19 20:25 morphine Allergy Rash Verified 01/14/19 20:25 ED Review of Systems ROS: Stated complaint: R SIDE FACIAL NUMBNESS/CERVANTES Other details as noted in HPI Constitutional: weakness. denies: chills, fever Eyes: denies: eye pain, eye discharge, vision change ENT: denies: ear pain, throat pain Respiratory: denies: cough, shortness of breath, wheezing Cardiovascular: denies: chest pain, palpitations Endocrine: no symptoms reported Gastrointestinal: denies: abdominal pain, nausea, diarrhea Genitourinary: denies: urgency, dysuria, discharge Musculoskeletal: denies: back pain, joint swelling, arthralgia Skin: denies: rash, lesions Neurological: headache, weakness, numbness, paresthesias, abnormal gait Psychiatric: denies: anxiety, depression Hematological/Lymphatic: denies: easy bleeding, easy bruising ED Past Medical Hx - Past Medical History Previous Medical History?: Yes Hx Hypertension: No Hx Congestive Heart Failure: No Hx Diabetes: No Hx Arthritis: No Hx Headaches / Migraines: Yes (Complex) Hx Seizures: No Hx Asthma: No Hx COPD: No Hx Dementia: No Hx HIV: No Additional medical history: Arnold Chiari malformation. ruptured disc in back. TIA. meningitis x6 - Surgical History Past Surgical History?: Yes Hx Cholecystectomy: Yes Additional Surgical History: Arnold-Chiari malformation repaired, cyst removed from left neck - Family History Family history: no significant - Social History Smoking Status: Current Every Day Smoker Substance Use Type: Methamphetamines - Medications Home Medications: Home Medications Medication Instructions Recorded Confirmed Last Taken Type fentaNYL [Fentanyl] 1 each TD Q72H 12/18/15 03/18/19 03/15/19 History Oxycodone HCl [Roxicodone TAB] 30 mg PO QID PRN 06/24/16 03/18/19 03/17/19 History Zolpidem [Ambien] 10 mg PO QHS 11/08/16 03/18/1903/17/19 History carisoprodoL [Soma] 350 mg PO QID 11/08/16 03/18/19 03/17/19 History Acetaminophen [Tylenol Arthritis] 650 mg PO Q6HR PRN #30 tablet.er 03/02/18 03/18/19 03/17/19 Rx Oxycodone HCl [roxiCODONE] 30 mg PO QID 03/18/19 03/18/19 03/17/19 History fentaNYL [Duragesic] 75 mcg TD Q3D patch 03/20/19 Unknown Rx tiZANidine [Zanaflex 4mg TAB] 4 mg PO Q8H PRN #24 tablet 04/19/19 Unknown Rx traMADoL [Ultram] 50 mg PO Q6HR PRN #15 tablet 04/19/19 Unknown Rx ED Neuro Physical Exam - General Limitations: No Limitations General appearance: alert, in no apparent distress Suspected Stroke: Yes - Head Head exam: Present: atraumatic, normocephalic - Eye Eye exam: Present: normal appearance, EOMI, other (unequal pupils. 5 on rt and 2 on left) - ENT ENT exam: Present: mucous membranes moist, other (poor dentation) - Neck Neck exam: Present: normal inspection - Respiratory Respiratory exam: Present: normal lung sounds bilaterally. Absent: respiratory distress, wheezes, rales - Cardiovascular Cardiovascular Exam: Present: regular rate, normal rhythm. Absent: systolic murmur, diastolic murmur, rubs, gallop - GI/Abdominal GI/Abdominal exam: Present: soft, normal bowel sounds. Absent: distended, tend erness, guarding - Extremities Exam Extremities exam: Present: normal inspection - Back Exam Back exam: Present: normal inspection - Neurological Exam Neurological exam: Present: alert, oriented X3, abnormal gait - NIHSS Assessment Interval: Baseline 1a. Level of Consciousness: alert/keenly responsive 1b. LOC Questions: answers both correctly 1c. LOC Commands: performs tasks correctly 2. Best Gaze: normal 3. Visual: no visual loss 4. Facial Palsy: minor paralysis 5b. Motor Arm Right: no drift 5a. Motor Arm Left: drift 6a. Motor Leg Left: no drift 6b. Motor Leg Right: drift 7. Limb Ataxia: absent 8. Sensory: mild/moderate sensory loss 9. Best Language: no aphasia 10. Dysarthria: normal 11. Extinction/Inattention: no abnormality Total Score: 4 Stroke Severity: Minor Stroke - Psychiatric Psychiatric exam: Present: normal affect, normal mood - Skin Skin exam: Present: warm, dry, intact, normal color. Absent: rash ED Course Vital Signs 08/13/19 19:44 Temperature 98.3 F Pulse Rate 103 H Respiratory 20 Rate Blood Pressure 182/113 O2 Sat by Pulse 95 Oximetry - Reevaluation(s) Reevaluation #1: code Stroke initiated. 08/13/19 22:00 Reevaluation #2: I discussed all results with patient. Discussed plan of care outpatient. Patient agrees with plan of care and admission. Patient will be admitted to the hospitalist service. 08/14/19 01:24 - Consultations Consultation #1: Neurology will recommendations received. 08/13/19 22:15 Consultation #2: Hospitalist consult for admission. Hospitalist admit patient. 08/14/19 01:24 - Lab Data Result diagrams: 08/13/19 22:05 08/13/19 22:05 Lab Results 08/13/19 08/13/19 08/13/19 Range/Units 21:59 22:05 22:05 WBC 12.8 H (4.5-11.0) K/mm3 RBC 4.73 (3.65-5.03) M/mm3 Hgb 14.9 H (10.1-14.3) gm/dl Hct 42.6 (30.3-42.9) % MCV 90 (79-97) fl MCH 32 (28-32) pg MCHC 35 H (30-34) % RDW 14.3 (13.2-15.2) % Plt Count 309 (140-440) K/mm3 Lymph % (Auto) 17.4 (13.4-35.0) % [place] % (Auto) 5.4 (0.0-7.3) % Eos % (Auto) 0.6 (0.0-4.3) % Baso % (Auto) 1.3 (0.0-1.8) % Lymph # 2.2 (1.2-5.4) K/mm3 [place] # 0.7 (0.0-0.8) K/mm3 Eos # 0.1 (0.0-0.4) K/mm3 Baso # 0.2 H (0.0-0.1) K/mm3 Seg Neutrophils % 75.3 H (40.0-70.0) % Seg Neutrophils # 9.6 H (1.8-7.7) K/mm3 PT 12.7 (12.2-14.9) Sec. INR 0.94 (0.87-1.13) APTT < 24.2 L (24.2-36.6) Sec. Thrombin Time 17.2 (15.1-19.6) Sec. Sodium (137-145) mmol/L Potassium (3.6-5.0) mmol/L Chloride (98-107) mmol/L Carbon Dioxide (22-30) mmol/L Anion Gap mmol/L BUN (7-17) mg/dL Creatinine (0.7-1.2) mg/dL Estimated GFR ml/min BUN/Creatinine Ratio % Glucose (65-100) mg/dL POC Glucose 96 (70-105) Calcium (8.4-10.2) mg/dL Total Bilirubin (0.1-1.2) mg/dL AST (5-40) units/L ALT (7-56) units/L Alkaline Phosphatase (35-129) units/L Total Creatine Kinase (30-135) units/L CK-MB (CK-2) (0.0-4.0) ng/mL CK-MB (CK-2) Rel Index (0-4) Troponin T (0.00-0.029) ng/mL Total Protein (6.3-8.2) g/dL Albumin (3.9-5) g/dL Albumin/Globulin Ratio % Plasma/Serum Alcohol (0-0.07) % 08/13/19 08/13/19 Range/Units 22:05 22:05 WBC (4.5-11.0) K/mm3 RBC (3.65-5.03) M/mm3 Hgb (10.1-14.3) gm/dl Hct (30.3-42.9) % MCV (79-97) fl MCH (28-32) pg MCHC (30-34) % RDW (13.2-15.2) % Plt Count (140-440) K/mm3 Lymph % (Auto) (13.4-35.0) % [place] % (Auto) (0.0-7.3) % Eos % (Auto) (0.0-4.3) % Baso % (Auto) (0.0-1.8) % Lymph # (1.2-5.4) K/mm3 [place] # (0.0-0.8) K/mm3 Eos # (0.0-0.4) K/mm3 Baso # (0.0-0.1) K/mm3 Seg Neutrophils % (40.0-70.0) % Seg Neutrophils # (1.8-7.7) K/mm3 PT (12.2-14.9) Sec. INR (0.87-1.13) APTT (24.2-36.6) Sec. Thrombin Time (15.1-19.6) Sec. Sodium 137 (137-145) mmol/L Potassium 4.1 (3.6-5.0) mmol/L Chloride 103.8 (98-107) mmol/L Carbon Dioxide 20 L (22-30) mmol/L Anion Gap 17 mmol/L BUN 28 H (7-17) mg/dL Creatinine 0.8 (0.7-1.2) mg/dL Estimated GFR > 60 ml/min BUN/Creatinine Ratio 35 % Glucose 109 H (65-100) mg/dL POC Glucose (70-105) Calcium 10.5 H (8.4-10.2) mg/dL Total Bilirubin 0.30 (0.1-1.2) mg/dL AST 13 (5-40) units/L ALT 11 (7-56) units/L Alkaline Phosphatase 75 (35-129) units/L Total Creatine Kinase 18 L (30-135) units/L CK-MB (CK-2) 1.4 (0.0-4.0) ng/mL CK-MB (CK-2) Rel Index 7.7 H (0-4) Troponin T < 0.010 (0.00-0.029) ng/mL Total Protein 7.8 (6.3-8.2) g/dL Albumin 4.5 (3.9-5) g/dL Albumin/Globulin Ratio 1.4 % Plasma/Serum Alcohol < 0.01 (0-0.07) % - EKG Data -: EKG Interpreted by Sd EKG shows normal: sinus rhythm, axis, intervals, QRS complexes, ST-T waves Rate: normal - Radiology Data Radiology results: report reviewed CT head without contrast INDICATION : Code stroke. Stroke symptoms. TECHNIQUE: Axial imaging performed from the skull apex through the skull base without the use of contrast. All CT examinations performed at this facility utilize dose modulation, iterative reconstruction or weight-based dosing, when appropriate, to reduce radiation dose to as low as reasonably achievable. COMPARISON: 03/18/2019 FINDINGS: No acute intracranial hemorrhage or parenchymal abnormality. Chronic appearing left MCA distribution infarct/encephalomalacia noted. No change from the prior exam. Ventricles are normal in size and appear symmetric. Soft tissues including the orbits appear normal. No acute osseous abnormality. Sinuses and mastoid air cells are clear. IMPRESSION: No acute abnormality. Chronic left MCA distribution infarct noted HEAD CT ANGIOGRAM 08/13/2019 HISTORY: Headache. Right-sided weakness. FINDINGS: Contrast-enhanced CT angiographic images of the intracranial circulation were obtained. In addition to the axial images, sagittal and coronal reformatted images were obtained. In addition, 3 plane MIP reconstructions were produced. There is no evidence of abnormality. There is no evidence of vessel occlusion, stenosis, malformation, aneurysm, arteriovenous malformation. IMPRESSION: No CT angiographic correlate for headache or right-sided weakness. No significant abnormality NECK CT ANGIOGRAM 08/13/2019 HISTORY: Weakness. Headache. FINDINGS: Contrast-enhanced CT angiographic images of the neck were obtained. In addition to the axial images, sagittal and coronal reformatted images were obtained. In addition, 3 plane MIP reconstructions were produced. NASCET like criteria were used in this evaluation. Mild atherosclerotic irregularity is present at the origin of the internal carotid arteries bilaterally . on the left, there is approximately 20% narrowing. On the right, there is no measurable stenosis. Common and internal carotid arteries are otherwise unremarkable. Vertebral artery contours are unremarkable. Visualized portions of the aortic arch are unremarkable. IMPRESSION: No significant abnormality. - Medical Decision Making He is a 54-year-old female that presents emergency room with complaints of right sided headache and right-sided weakness. Patient also complained of right- sided facial numbness. Patient had a code stroke ramp. Patient had a head CT which was negative for acute findings. Patient had a CTA of the head and neck which were negative for acute findings. Patient had labs done. Neurology saw the patient and recommendations were received. Patient admitted to the hospitalist service. - Differential Diagnosis CVA, complex migraine, right-sided weakness, right-sided headache. ICH Critical Care Time: Yes Critical care time in (mins) excluding proc time.: 45 Critical care attestation.: If time is entered above; I have spent that time in minutes in the direct care of this critically ill patient, excluding procedure time. Critical Care Time: 45 minutes ED Disposition Clinical Impression: Right sided weakness, Facial numbness CVA (cerebral vascular accident) Qualifiers: CVA mechanism: unspecified Qualified Code(s): I63.9 - Cerebral infarction, u nspecified Migraine Qualifiers: Migraine type: unspecified Status migrainosus presence: with status migrainosus Intractability: intractable Qualified Code(s): G43.911 - Migraine, unspecified, intractable, with status migrainosus Headache Qualifiers: Headache type: unspecified Headache chronicity pattern: acute headache Intractability: intractable Qualified Code(s): R51 - Headache Disposition: DC-09 OP ADMIT IP TO THIS HOSP Is pt being admited?: Yes Does the pt Need Aspirin: No Condition: Critical Time of Disposition: 01:23
[2019-08-13 22:45] LABS: INR 0.94 (0.87-1.13); Thrombin Time 17.2 Sec. (15.1-19.6)
[2019-08-13 22:46] LABS: Partial Thromboplastin Time < 24.2 Sec. (24.2-36.6)
--- NOTE | 2019-08-13 22:54 | XRay Report ---
CHEST 1 VIEW INDICATION / CLINICAL INFORMATION: weakness. COMPARISON: 02/01/2017 FINDINGS: SUPPORT DEVICES: None. HEART / MEDIASTINUM: No significant abnormality. LUNGS / PLEURA: No significant pulmonary or pleural abnormality.. No pneumothorax. ADDITIONAL FINDINGS: No significant additional findings. IMPRESSION: 1. No acute findings. Signer Name: Desean Villafana MD Signed: 08/13/2019 10:49 PM Workstation Name: [id number]
[2019-08-13 22:55] LABS: Creatine Kinase MB 1.4 ng/mL (0.0-4.0)
[2019-08-13 22:58] LABS: Alanine Aminotransferase 11 units/L (7-56); Albumin 4.5 g/dL (3.9-5); BUN/Creatinine Ratio 35; Blood Urea Nitrogen 28 mg/dL (7-17); Calcium 10.5 mg/dL (8.4-10.2); Hemolysis Index 12
--- NOTE | 2019-08-14 00:29 | Cat Scan Report ---
HEAD CT ANGIOGRAM 08/13/2019 HISTORY: Headache. Right-sided weakness. FINDINGS: Contrast-enhanced CT angiographic images of the intracranial circulation were obtained. In addition to the axial images, sagittal and coronal reformatted images were obtained. In addition, 3 p sree MIP reconstructions were produced. There is no evidence of abnormality. There is no evidence of vessel occlusion, stenosis, malformation , aneurysm, arteriovenous malformation. IMPRESSION: No CT angiographic correlate for headache or right-sided weakness. No significant abnorma lity. All CT scans at this location are performed using dose reduction to ALARA by means of automated expos ure control. Signer Name: Alen Mccord MD Signed: 08/14/2019 12:24 AM Workstation Name: [id number]
--- NOTE | 2019-08-14 00:32 | Cat Scan Report ---
NECK CT ANGIOGRAM 08/13/2019 HISTORY: Weakness. Headache. FINDINGS: Contrast-enhanced CT angiographic images of the neck were obtained. In addition to the axia l images, sagittal and coronal reformatted images were obtained. In addition, 3 plane MIP reconstruct ions were produced. NASCET like criteria were used in this evaluation. Mild atherosclerotic irregularity is present at the origin of the internal carotid arteries bilateral ly . on the left, there is approximately 20% narrowing. On the right, there is no measurable stenosis . Common and internal carotid arteries are otherwise unremarkable. Vertebral artery contours are unre markable. Visualized portions of the aortic arch are unremarkable. IMPRESSION: No significant abnormality. All CT scans at this location are performed using dose reduction to ALARA by means of automated expos ure control. Signer Name: Alen Mccord MD Signed: 08/14/2019 12:28 AM Workstation Name: [id number]
[2019-08-14] MEDS ORDERED: HYDROmorphone 1 MG/1 ML INJ ONE (00:58)
[2019-08-14] MEDS ORDERED: HYDROmorphone 1 MG/1 ML INJ IV ONE (01:03)
[2019-08-14 02:51] LABS: Bilirubin,Urine NEG (Negative); Blood,Urine NEG (Negative); Color,Urine Yellow (Yellow); Protein,Urine <15 mg/dL mg/dL (Negative); Urobilinogen,Urine < 2.0 mg/dL (<2.0); WBC,Urine < 1.0 /HPF (0.0-6.0)
[2019-08-14 02:57] LABS: Amphetamine Screen,Urine PRESUMPTIVE NEGATIVE; Benzodiazepines Screen,Urine PRESUMPTIVE NEGATIVE; Cannabinoid Screen,Urine PRESUMPTIVE NEGATIVE; Cocaine Screen,Urine PRESUMPTIVE NEGATIVE; Methadone Screen,Urine PRESUMPTIVE NEGATIVE; Opiate Screen,Urine PRESUMPTIVE NEGATIVE
[2019-08-14] MEDS ORDERED: ACETAMINOPHEN 325 MG TAB PO PRN (03:12)
[2019-08-14] MEDS ORDERED: MAGNESIUM HYDROXIDE (MOM) ORAL LIQD UDC PO PRN (03:12)
[2019-08-14] MEDS ORDERED: ONDANSETRON 4 MG/2 ML INJ IV PRN (03:12)
--- NOTE | 2019-08-14 03:12 | History and Physical Report ---
History of Present Illness History of present illness: 54-year-old with a history of migraines, chronic pain comes emergency room with complaint of headache is on the left side, sharp, constant, intensity 6/10, no radiation, relieved with IV medication given in the emergency room. Also complained of numbness on the right side. She is on chronic narcotics. Patient is being admitted for further evaluation, rule out CVA Review of systems Constitutional: no weight loss, chills, fever Ears, eyes, nose, mouth and throat: no nasal congestion, no nasal discharge, no sinus pressure, no vision change, no red eye. Neck: No neck pain or rigidity. Cardiovascular: no palpitations, chest pain Respiratory: no cough, shortness of Gastrointestinal: no hematochezia, abdominal pain Genitourinary : no frequency , no hematuria Musculoskeletal: no joint swelling or muscle ache Integumentary: no rash, no pruritis Neurological: no focal weakness Endocrine: no cold or heat intolerance, no polyuria or polydipsia Hematologic/Lymphatic: no easy bruising, no easy bleeding, no gland swelling Allergic/Immunologic: no urticaria, no angioedema. PAST MEDICAL HISTORY: Migraine, chronic pain PAST SURGICAL HISTORY: Cholecystectomy, repair of Arnold-Chiari malformation, removal cyst on the neck SOCIAL HISTORY: denies alcohol, drugs, smoke 1-1/2 packs a day FAMILY HISTORY:Hypertension Medications and Allergies Allergies Allergy/AdvReac Type Severity Reaction Status Date / Time hydrocodone Allergy Vomiting Verified 01/14/19 20:25 ketorolac tromethamine Allergy Anaphylaxis Verified 01/14/19 20:25 [From Toradol] meperidine HCl [From Demerol] Allergy Swelling Verified 01/14/19 20:25 morphine Allergy Rash Verified 01/14/19 20:25 Home Medications Medication Instructions Recorded Confirmed Last Taken Type fentaNYL [Fentanyl] 1 each TD Q72H 12/18/15 08/14/19 03/15/19 History Oxycodone HCl [Roxicodone TAB] 30 mg PO QID PRN 06/24/16 08/14/19 03/17/19 History Zolpidem [Ambien] 10 mg PO QHS 11/08/16 08/14/19 03/17/19 History carisoprodoL [Soma] 350 mg PO QID 11/08/16 08/14/19 03/17/19 History Exam - Physical Exam Narrative exam: Gen. appearance: Patient lying in bed, no apparent distress HEENT: Normocephalic, atraumatic, pupils equally round and reactive to light, eyes are , extraocular movement intact, and no sclericterus,. No JVD or thyromegaly or nodule,neck supple, no carotid bruit ,mucous membranes moist, no exudate or erythema Heart: S1, S2, regular rate and rhythm Lungs: Clear bilaterally, breathing comfortable Abdomen: Positive bowel sounds, non-tender, nondistended, no organomegaly Extremity:no edema cyanosis, clubbing Skin: no rash, dry, warm Neuro: Cranial nerves 2-12 intact, motor intact and decrease sensation on the right side - Constitutional Vitals: Temp Pulse Resp BP Pulse Ox 98.3 F 73 17 163/96 96 08/13/19 19:44 08/14/19 02:18 08/14/19 01:27 08/14/19 01:27 08/14/19 01:27 Results - Labs CBC & Chem 7: 08/13/19 22:05 08/13/19 22:05 Labs: Abnormal lab results 08/13/19 08/13/19 08/13/19 Range/Units 22:05 22:05 22:05 WBC 12.8 H (4.5-11.0) K/mm3 Hgb 14.9 H (10.1-14.3) gm/dl MCHC 35 H (30-34) % Baso # 0.2 H (0.0-0.1) K/mm3 Seg Neutrophils % 75.3 H (40.0-70.0) % Seg Neutrophils # 9.6 H (1.8-7.7) K/mm3 APTT < 24.2 L (24.2-36.6) Sec. Carbon Dioxide 20 L (22-30) mmol/L BUN 28 H (7-17) mg/dL Glucose 109 H (65-100) mg/dL Calcium 10.5 H (8.4-10.2) mg/dL Total Creatine Kinase 18 L (30-135) units/L CK-MB (CK-2) Rel Index 7.7 H (0-4) Ur Specific [place] (1.003-1.030) 08/14/19 Range/Units 02:06 WBC (4.5-11.0) K/mm3 Hgb (10.1-14.3) gm/dl MCHC (30-34) % Baso # (0.0-0.1) K/mm3 Seg Neutrophils % (40.0-70.0) % Seg Neutrophils # (1.8-7.7) K/mm3 APTT (24.2-36.6) Sec. Carbon Dioxide (22-30) mmol/L BUN (7-17) mg/dL Glucose (65-100) mg/dL Calcium (8.4-10.2) mg/dL Total Creatine Kinase (30-135) units/L CK-MB (CK-2) Rel Index (0-4) Ur Specific [place] > 1.059 H (1.003-1.030) - Imaging and Cardiology CT Scan - head: report reviewed Assessment and Plan CTA head and neck reviewed Assessment Complicated migraine, rule out CVA Obtain MRI of the head, do neuro checks Consult neurology, start aspirin, statin Percocet for pain DVT prophylaxis
[2019-08-14] MEDS ORDERED: LORazepam 2 MG/ML VIAL IV ONE (07:57)
[2019-08-14] MEDS ORDERED: HYDROmorphone 1 MG/1 ML INJ IV PRN (08:00)
[2019-08-14] MEDS ORDERED: ASPIRIN 325 MG TAB PO SCH (10:00)
--- NOTE | 2019-08-14 10:27 | Magnetic Resonance Report ---
MRI BRAIN 08/14/2019 INDICATION / CLINICAL INFORMATION: stroke. Right-sided weakness. Slurred speech. TECHNIQUE: Multiplanar, multisequence MR images of the brain were obtained. COMPARISON: CT brain 08/13/2019 FINDINGS: BRAIN / INTRACRANIAL CONTENTS: Unenhanced MR images of the brain demonstrate no evidence of acute abn ormality. Chronic ischemic encephalomalacia is present in the left hemisphere, involving portions of the left m iddle cerebral artery distribution. This corresponds to the findings seen on the earlier CT scan. There is no MR evidence of acute ischemic injury, hemorrhage, or mass. There are no abnormal extra-ax ial fluid collections. Ventricles and sulci are otherwise normal in size and shape. There are no abnormal extra-axial fluid collections. EXTRACRANIAL: Unremarkable CRANIOCERVICAL JUNCTION: No significant abnormality. VASCULAR FLOW-VOIDS: No significant abnormality. IMPRESSION: No acute abnormality. Chronic partial left MCA territory infarct. Signer Name: Alen Mccord MD Signed: 08/14/2019 10:22 AM Workstation Name: [id number]
--- NOTE | 2019-08-14 16:30 | Event Note ---
Date: 08/14/19 54-year-old with a history of migraines, chronic pain comes emergency room with complaint of headache is on the left side, sharp, constant, intensity 6/10, no radiation, relieved with IV medication given in the emergency room. Also complained of numbness on the right side. She is on chronic narcotics. Patient is being admitted for further evaluation, rule out CVA Neuro Workup so far is negative. Chest x-ray no acute abnormality CT head:No acute abnormality chronic left MCA distribution infarct CTA head; no acute abnormality CTA neck; no acute abnormality MRI brain: No acute abnormality, chronic partial left MCA infarct Follow Neurology evaluation and recommendations Continue current management
--- NOTE | 2019-08-14 16:45 | Discharge Summary ---
Providers - Providers Date of Admission: 08/14/19 03:30 Date of discharge: 08/14/19 Attending physician: DRE NOLAN 08/14/19 Consult to Physician [CONS] Routine Comment: Consulting Provider: JASON HAMMER Physician Instructions: Reason For Exam: complicated migraine/cva 08/14/19 03:14 Occupational Therapy Evaluate and Treat [CONS] Routine Comment: Reason For Exam: Neuro deficits Physical Therapy Evaluation and Treat [CONS] Routine Comment: Reason For Exam: Neuro deficits Primary care physician: GONZALEZ BARTHOLOMEW Hospitalization Reason for admission: headache/numbness on the right side/neuro symptoms Condition: Fair Pertinent studies: Chest x-ray no acute abnormality CT head:No acute abnormality chronic left MCA distribution infarct CTA head; no acute abnormality CTA neck; no acute abnormality MRI brain: No acute abnormality, chronic partial left MCA infarct Hospital course: 54-year-old with a history of migraines, chronic pain comes emergency room with complaint of headache is on the left side, sharp, constant, intensity 6/10, no radiation, relieved with IV medication given in the emergency room. Also complained of numbness on the right side. She is on chronic narcotics. Patient is being admitted for further evaluation, rule out CVA She was evaluated by neurology, had extensive neuro workup which was negative Patient's symptoms resolved, Possible TIA Today patient is comfortable no new complaints Vital signs reviewed Physical examination no new changes Cleared by neurology Follow-up outpatient neurologist for further evaluation and management as needed Patient is hemodynamically and clinically stable at discharge, No neuro deficits, ambulatory in the hallway without support or assistance Discharge diagnosis: --TIA; Acute CVA ruled out Neuro workup is negative Neurology evaluated and recommended aspirin and statin Cleared for discharge, follow-up outpatient neurologist For further evaluation and management as needed --Hypertension; moderate control Hydralazine 10 mg mg twice a day --Dyslipidemia; LDL on 03/19/2019 is 120 mg Not on any statin at home Discharge on Lipitor 40 daily at bedtime --Ongoing tobacco use; smoking cessation counseling Advised nicotine patch as needed --Mild leukocytosis; probably stress-induced No evidence of sepsis or SIRS No tachycardia no fever, chest x-ray negative Urine analysis negative --Obesity; BMI 32.2 Advised weight reduction when medically stable Cleared by neuro, hemodynamically stable at discharge Disposition: TO HOME OR SELFCARE Time spent for discharge: 32 min Core Measure Documentation - Palliative Care Palliative Care/ Comfort Measures: Not Applicable - Core Measures Any of the following diagnoses?: none Exam - Constitutional Vitals: Temp Pulse Resp BP Pulse Ox 98.7 F 76 16 137/89 96 08/14/19 08:19 08/14/19 10:00 08/14/19 15:24 08/14/19 08:19 08/14/19 10:00 General appearance: Present: no acute distress, well-nourished - EENT Eyes: Present: PERRL, EOM intact - Neck Neck: Present: supple, normal ROM - Respiratory Respiratory effort: normal Respiratory: bilateral: diminished, negative: rales, rhonchi, wheezing - Cardiovascular Rhythm: regular Heart Sounds: Present: S1 & S2 - Extremities Extremities: no ischemia, No edema - Abdominal General gastrointestinal: Present: soft, non-tender, non-distended, normal bowel sounds - Integumentary Integumentary: Present: clear, warm - Musculoskeletal Musculoskeletal: strength equal bilaterally - Psychiatric Psychiatric: appropriate mood/affect, cooperative - Neurologic Neurologic: CNII-XII intact, moves all extremities Plan Activity: advance as tolerated Diet: low cholesterol Special Instructions: smoking cessation Additional Instructions: Advised to see private neurologist in 1 week. Smoking cessation advised Follow up with: GONZALEZ BARTHOLOMEW MD [Primary Care Provider] - 7 Days ELISA PETIT MD [Staff Physician] - 7 Days Prescriptions: RX: hydrALAZINE [Apresoline TAB] 10 mg PO BID #60 tablet RX: Nicotine [Habitrol] 14 mg TD DAILY #30 patch RX: Aspirin EC [Halfprin EC] 81 mg PO QDAY #30 tablet. RX: AtorvaSTATin [Lipitor] 40 mg PO QHS #30 tablet oxyCODONE [roxiCODONE] 5 mg PO BID PRN #6 tablet PRN Reason: Pain , Severe (7-10)
[2019-08-14 16:56] VITALS: BP 146/92
--- NOTE | 2019-08-14 17:08 | Consultation ---
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 Patient states that at about 6:30 pm yesterday, she had onset of increased numbness and weakness of her RLE. She was then brought to [facility] for further evaluation. She does not take ASA at home, and is not on any blood thinners. She states that the RLE numbness/weakness has improved now, and that she feels that she is now back to baseline. She was found to have elevated BP in ER, and states she does not take any anti-HTN meds, and that her BP does get elevated when she is in pain. Patient endorses pain in the hip. Past History Past Medical History: other (history of CVA with residual right-sided weakness and numbness, history of migraines) Social history: smoking Family history: no significant family history Medications and Allergies Allergies Allergy/AdvReac Type Severity Reaction Status Date / Time hydrocodone Allergy Vomiting Verified 01/14/19 20:25 ketorolac tromethamine Allergy Anaphylaxis Verified 01/14/19 20:25 [From Toradol] meperidine HCl [From Demerol] Allergy Swelling Verified 01/14/19 20:25 morphine Allergy Rash Verified 01/14/19 20:25 Home Medications Medication Instructions Recorded Confirmed Last Taken Type fentaNYL [Fentanyl] 1 each TD Q72H 12/18/15 08/14/19 03/15/19 History Oxycodone HCl [Roxicodone TAB] 30 mg PO QID PRN 06/24/16 08/14/19 03/17/19 History Zolpidem [Ambien] 10 mg PO QHS 11/08/16 08/14/19 03/17/19 History carisoprodoL [Soma] 350 mg PO QID 11/08/16 08/14/19 03/17/19 History Aspirin EC [Halfprin EC] 81 mg PO QDAY #30 tablet. 08/14/19 Unknown Rx AtorvaSTATin [Lipitor] 40 mg PO QHS #30 tablet 08/14/19 Unknown Rx Nicotine [Habitrol] 14 mg TD DAILY #30 patch 08/14/19 Unknown Rx hydrALAZINE [Apresoline TAB] 10 mg PO BID #60 tablet 08/14/19 Unknown Rx oxyCODONE [roxiCODONE] 5 mg PO BID PRN #6 tablet 08/14/19 Unknown Rx Active Meds: Active Medications Acetaminophen (Tylenol) 650 mg PO Q4H PRN PRN Reason: Pain, Mild (1-3) Aspirin (Aspirin) 325 mg PO QDAY JOSE Last Admin: 08/14/19 11:00 Dose: 325 mg Documented by: Atorvastatin Calcium (Lipitor) 40 mg PO QHS JOSE Bisacodyl (Dulcolax) 10 mg IN QDAY PRN PRN Reason: Constipation Hydromorphone HCl (Dilaudid) 0.5 mg IV Q6H PRN PRN Reason: Pain , Severe (7-10) Last Admin: 08/14/19 15:24 Dose: 0.5 mg Documented by: Magnesium Hydroxide (Milk Of Magnesia) 30 ml PO Q4H PRN PRN Reason: Constipation Ondansetron HCl (Zofran) 4 mg IV Q8H PRN PRN Reason: Nausea And Vomiting Sodium Chloride (Sodium Chloride Flush Syringe 10 Ml) 10 ml IV PRN PRN PRN Reason: LINE FLUSH Review of Systems All systems: negative Neurological: weakness, numbness Physical Examination - Vital Signs Vital Signs: Vital Signs Temp Pulse Resp BP Pulse Ox 98.3 F 103 H 20 182/113 95 08/13/19 19:44 08/13/19 19:44 08/13/19 19:44 08/13/19 19:44 08/13/19 19:44 - Physical Exam Narrative exam: Patient is alert, awake, oriented x4, follows complex commands. PERRL, EOMI, VFF, no facial weakness noted, tongue midline, decreased on Rt. to LT which is chronic. No dysarthria or aphasia noted. RUE 4/5 which is baseline, RLE 3/5 limited due to pain, LUE/LLE 5/5. B/l intact to LT. B/l intact to FTN and HTS. 3+ reflexes on RUE/RLE, 2+ on LUE/LLE. - Constitutional General appearance: comfortable - EENT EENT: Present: ATNC, PERRL, mucous membranes moist, hearing intact, vision intact - Respiratory Respiratory: Present: lungs clear, normal breath sounds - Cardiovascular Cardiovascular: Present: regular rate, normal S1, normal S2 Extremities: Present: no clubbing, cyanosis, no inflammation - Gastrointestinal Gastrointestinal: Present: normoactive bowel sounds, soft, non-tender - Integumentary Integumentary: Present: normal - Musculoskeletal Musculoskeletal: Present: no fluid collection - Psychiatric Psychiatric: Present: mood/affect appropriate - Level of Consciousness 1a. Level of Consciousness: alert/keenly responsive - LOC Questions 1b. LOC Questions: answers both correctly - LOC Command 1c. LOC Commands: performs tasks correctly - Best Gaze 2. Best Gaze: normal - Visual 3. Visual: no visual loss - Facial Palsy 4. Facial Palsy: normal symmetrical movement - Motor Arm 5a. Motor Arm Left: no drift 5b. Motor Arm Right: no drift - Motor Leg 6a. Motor Leg Left: no drift 6b. Motor Leg Right: drift - Limb Ataxia 7. Limb Ataxia: absent - Sensory 8. Sensory: mild/moderate sensory loss - Best Language 9. Best Language: no aphasia - Dysarthria 10. Dysarthria: normal - Extinction and Inattention 11. Extinction/Inattention: no abnormality - Scoring Total Score: 2 Stroke Severity: Minor Stroke Results - Laboratory Findings CBC and BMP: 08/13/19 22:05 08/13/19 22:05 Abnormal Lab Findings: Abnormal Labs 08/13/19 08/13/19 08/13/19 22:05 22:05 22:05 WBC 12.8 H Hgb 14.9 H MCHC 35 H Baso # 0.2 H Seg Neutrophils % 75.3 H Seg Neutrophils # 9.6 H APTT < 24.2 L Carbon Dioxide 20 L BUN 28 H Glucose 109 H Calcium 10.5 H Total Creatine Kinase 18 L CK-MB (CK-2) Rel Index 7.7 H Ur Specific [place] 08/14/19 02:06 WBC Hgb MCHC Baso # Seg Neutrophils % Seg Neutrophils # APTT Carbon Dioxide BUN Glucose Calcium Total Creatine Kinase CK-MB (CK-2) Rel Index Ur Specific [place] > 1.059 H Assessment and Plan Patient is a 54-year-old woman with a history of CVA with residual right-sided weakness and numbness, history of migraines, who presents with increased weakness and numbness on the right side. According patient's clinical findings, and is likely that she has had a TIA. Alternatively patient may have recrudes cence of previous stroke symptoms. Plan: 1. TIA vs. Recrudescence of previous stroke symptoms: - MRI brain: no acute abnormality - CTA head/neck: no significant stenosis - Echo pending. Recommend for this to be done inpatient - Cont. ASA - Cont. statin. LDL goal <70. - Recommend for patient to stop smoking. - Telemetry monitoring while in house. - PT/OT/ST - DVT Ppx: recommend lovenox 2. Blood Pressure: - Patient states that she does not have a h/o HTN, however BP was elevated on admission. Patient states that this may have been due to pain, which has caused elevated BP in the past for her. - Recommend target normotension, as no infarct noted on MRI brain. - Recommend for patient to keep BP diary, and to take this to her PCP, as she may need to be started on anti-HTN meds if consistently elevated. - Will sign off, as I am not covering neurology service over the weekend. Recommend consult neurologist covering service over the weekend for further neurologic monitoring and management. Thank you for allowing me to take part in the care of this patient. Gilberto Lua MD Neurology
== END 2019-08-14 18:26 | disposition home or self-care (01) ==
LOC: ED 19:26 → 4A 08-14 03:30 → INTOOBSV 08-14 03:30
PROVIDERS: ADMIT Internal Medicine; ATTEND Internal Medicine
DX: G43.909 Migraine, unspecified, not intractable, without status migrainosus (principal); I63.9 Cerebral infarction, unspecified; I10 Essential (primary) hypertension; E78.5 Hyperlipidemia, unspecified; D72.829 Elevated white blood cell count, unspecified; G89.29 Other chronic pain; E66.9 Obesity, unspecified; Z79.899 Other long term (current) drug therapy; Z90.49 Acquired absence of other specified parts of digestive tract; Z88.5 Allergy status to narcotic agent; Z88.6 Allergy status to analgesic agent; Z68.32 Body mass index [BMI] 32.0-32.9, adult
CPT/HCPCS: 36415; 70450; 70496; 70498; 70551; 71045; 80053; 80307; 81001; 82550; 82553; 82962; 84484; 85025; 85610; 85670; 85730; 87116; 93005; 93010; 96374; 96375; 96376; 97166; 99285; 99291; G0378; J1170; J2060; Q9967; 80320; G0480

== ENCOUNTER 2019-09-05 11:51 | Emergency (ER) | payer MEDICAID ==
--- NOTE | 2019-09-05 12:39 | Event Note ---
ED Screening Note ED Screening Note: pt is a 54 yo female who presents with right posterior thigh pain that began three days ago states she needs to have a hip replacement she states she is having pain in the muscle no fall or injury no numbness or weakness no leg swelling no recent surgery no recent travel no hormone replacement no hx of cancer
[2019-09-05 12:42] VITALS: BP 184/109
--- NOTE | 2019-09-05 12:42 | Emergency Department Report ---
Chief Complaint: Extremity Problem,Nontraumatic Stated Complaint: THIGH MUSCLE FEELS TORN Time Seen by Provider: 09/05/19 12:35 - HPI History of Present Illness: pt is a 54 yo female who presents with right posterior thigh pain that began three days ago states she needs to have a hip replacement she states she is having pain in the muscle no fall or injury no numbness or weakness no leg swelling no recent surgery no recent travel no hormone replacement no hx of cancer vitals with elevated HR which improved upon repeat, pt has elevated BP, appears pts BP has been elevated multiple occasions in the past, she is not having any symptoms related to her BP, she does not report any headache, vision changes, numbness, weakness, CP, SOB, discussed with pt to keep a blood pressure log, see a primary care physician, eat a low sodium diet, increase water intake, incorporate daily exercise. the uptodate medical literature does not recommended emergently lowering asymptomatic elevated blood pressure. on exam: Non toxic appearing, no acute distress atraumatic, normocephalic normal appearance of the eyes, EOMI, no periorbital edema or ecchymosis moist mucus membranes no bony ttp of the right lower extremity, FROM of the RLE, no edema of the RLE, no calf ttp, no obvious deformity, no joint laxity, no skin changes, neurovascularly intact A&O x4, no focal neuro deficit skin is warm, dry, intact pt was able to get up and ambulate out of the emergency department without difficulty no trauma to suggest acute injury no signs of septic joint no signs of DVT, no DVT risk factors pt will be referred to an orthopedic doctor and PCP pt is presenting with a non medical emergency at this time, there is no threat to life or limb at this time discussed strict return precautions - Exam Vital Signs: Vital Signs 09/05/19 11:54 Temperature 97.9 F Pulse Rate 111 H Respiratory 20 Rate Blood Pressure 190/107 O2 Sat by Pulse 96 Oximetry MSE screening note: Focused history and physical exam performed. ED Disposition for MSE Clinical Impression: Right thigh pain, Elevated blood pressure reading Disposition: MED SCREENING EXAM-LEFT Is pt being admited?: No Does the pt Need Aspirin: No Condition: Stable Instructions: Arthralgia (ED) Additional Instructions: may take tylenol or ibuprofen as needed for pain. may use ice pack, heating pad, rest, epsom salt bath. follow up with an orthopedic doctor in the next 2-3 days. please follow up with a primary care doctor in the next 2-3 days due to your blood pressure. eat a low sodium diet. increase your water intake. incorporate exercise. return to the emergency room for any new or worsening symptoms including but not limited to leg swelling, injury, chest pain, shortness of breath, vision changes, numbness or weakness, severe headache. Referrals: [facility] [Provider Group] - 2-3 Days [facility] [Outside] - 2-3 Days [facility] [Outside] - 2-3 Days MORE PARSONS MD [Staff Physician] - 2-3 Days CONNOR WALKER MD [Staff Physician] - 2-3 Days Time of Disposition: 12:41 Print Language: MACEDONIAN
== END 2019-09-05 13:08 | disposition left against medical advice (07) ==
LOC: ED 11:51
DX: M79.651 Pain in right thigh (principal); R03.0 Elevated blood-pressure reading, without diagnosis of hypertension; Z88.6 Allergy status to analgesic agent; Z88.8 Allergy status to other drugs, medicaments and biological substances
CPT/HCPCS: 99281

== ENCOUNTER 2019-09-06 19:06 | Emergency (ER) | payer MEDICAID ==
[2019-09-06] MEDS ORDERED: ONDANSETRON 4 MG/2 ML INJ IV ONE (20:44)
[2019-09-06] MEDS ORDERED: PANTOPRAZOLE 40 MG INJ IV ONE (20:44)
--- NOTE | 2019-09-06 20:47 | Emergency Department Report ---
<HARRIS CHEATHAM - Last Filed: 09/06/19 22:42> ED General Adult HPI - General Chief complaint: Headache Stated complaint: MIGRAINE Time Seen by Provider: 09/06/19 20:28 Source: patient Mode of arrival: Ambulatory Limitations: No Limitations - History of Present Illness Initial comments: Patient is 54 years old female with history of multiple ER visits for headache migraine and narcotic seeking behavior. Patient presented to the ER complaining of vomiting blood for the last 5 days. Patient also complaining of headache s imilar to her previous headache. Patient also complaining of right leg pain for the last 3 days. Patient denied any chest pain or shortness of breath. No fever or chills. - Related Data Home Medications Medication Instructions Recorded Confirmed Last Taken fentaNYL [Fentanyl] 1 each TD Q72H 12/18/15 08/14/19 03/15/19 Oxycodone HCl [Roxicodone TAB] 30 mg PO QID PRN 06/24/16 08/14/19 03/17/19 Zolpidem [Ambien] 10 mg PO QHS 11/08/16 08/14/19 03/17/19 carisoprodoL [Soma] 350 mg PO QID 11/08/16 08/14/19 03/17/19 Previous Rx's Medication Instructions Recorded Last Taken Type Aspirin EC [Halfprin EC] 81 mg PO QDAY #30 tablet. 08/14/19 Unknown Rx AtorvaSTATin [Lipitor] 40 mg PO QHS #30 tablet 08/14/19 Unknown Rx Nicotine [Habitrol] 14 mg TD DAILY #30 patch 08/14/19 Unknown Rx hydrALAZINE [Apresoline TAB] 10 mg PO BID #60 tablet 08/14/19 Unknown Rx oxyCODONE [roxiCODONE] 5 mg PO BID PRN #6 tablet 08/14/19 Unknown Rx Esomeprazole Magnesium [NexIUM] 40 mg PO QDAY #30 capsule. 09/06/19 Unknown Rx Ondansetron [Zofran Odt] 4 mg PO Q8HR PRN #14 tab.rapdis 09/06/19 Unknown Rx Allergies Allergy/AdvReac Type Severity Reaction Status Date / Time hydrocodone Allergy Vomiting Verified 01/14/19 20:25 ketorolac tromethamine Allergy Anaphylaxis Verified 01/14/19 20:25 [From Toradol] meperidine HCl [From Demerol] Allergy Swelling Verified 01/14/19 20:25 morphine Allergy Rash Verified 01/14/19 20:25 ED Review of Systems Comment: All other systems reviewed and negative Constitutional: denies: chills, fever Respiratory: denies: cough, shortness of breath, SOB with exertion Cardiovascular: denies: chest pain Gastrointestinal: nausea, vomiting, hematemesis. denies: abdominal pain, diarrhea, constipation, melena, hematochezia Musculoskeletal: denies: back pain Neurological: denies: headache, weakness ED Past Medical Hx - Past Medical History Hx Hypertension: No Hx Congestive Heart Failure: No Hx Diabetes: No Hx Arthritis: No Hx Headaches / Migraines: Yes (Complex) Hx Seizures: No Hx Asthma: No Hx COPD: No Hx Dementia: No Hx HIV: No Additional medical history: Arnold Chiari malformation. ruptured disc in back. TIA. meningitis x6 - Surgical History Past Surgical History?: Yes Hx Cholecystectomy: Yes Additional Surgical History: Arnold-Chiari malformation repaired, cyst removed from left neck - Social History Smoking Status: Current Every Day Smoker Substance Use Type: None - Medications Home Medications: Home Medications Medication Instructions Recorded Confirmed Last Taken Type fentaNYL [Fentanyl] 1 each TD Q72H 12/18/15 08/14/19 03/15/19 History Oxycodone HCl [Roxicodone TAB] 30 mg PO QID PRN 06/24/16 08/14/19 03/17/19 History Zolpidem [Ambien] 10 mg PO QHS 11/08/16 08/14/19 03/17/19 History carisoprodoL [Soma] 350 mg PO QID 11/08/16 08/14/19 03/17/19 History Aspirin EC [Halfprin EC] 81 mg PO QDAY #30 tablet. 08/14/19 Unknown Rx AtorvaSTATin [Lipitor] 40 mg PO QHS #30 tablet 08/14/19 Unknown Rx Nicotine [Habitrol] 14 mg TD DAILY #30 patch 08/14/19 Unknown Rx hydrALAZINE [Apresoline TAB] 10 mg PO BID #60 tablet 08/14/19 Unknown Rx oxyCODONE [roxiCODONE] 5 mg PO BID PRN #6 tablet 08/14/19 Unknown Rx Esomeprazole Magnesium [NexIUM] 40 mg PO QDAY #30 capsule. 09/06/19 Unknown Rx Ondansetron [Zofran Odt] 4 mg PO Q8HR PRN #14 tab.willie 09/06/19 Unknown Rx ED Physical Exam - General Limitations: No Limitations General appearance: alert, in no apparent distress - Head Head exam: Present: atraumatic, normocephalic, normal inspection - Eye Eye exam: Present: normal appearance - ENT ENT exam: Present: normal exam, normal orophraynx, mucous membranes moist - Neck Neck exam: Present: normal inspection, full ROM. Absent: tenderness, meningismus, lymphadenopathy, thyromegaly - Respiratory Respiratory exam: Present: normal lung sounds bilaterally - Cardiovascular Cardiovascular Exam: Present: regular rate, normal rhythm, normal heart sounds - GI/Abdominal GI/Abdominal exam: Present: soft, normal bowel sounds. Absent: distended, tenderness, guarding, rebound, rigid, organomegaly, mass, bruit, hernia - Extremities Exam Extremities exam: Present: normal inspection, full ROM, normal capillary refill. Absent: tenderness, pedal edema, calf tenderness - Back Exam Back exam: Present: normal inspection, full ROM. Absent: CVA tenderness (R), CVA tenderness (L), muscle spasm, paraspinal tenderness, vertebral tenderness - Neurological Exam Neurological exam: Present: alert, oriented X3, CN II-XII intact - Psychiatric Psychiatric exam: Present: normal mood - Skin Skin exam: Present: warm, intact, normal color ED Medical Decision Making - Lab Data Result diagrams: 09/06/19 20:47 09/06/19 21:02 - Medical Decision Making Patient is 54 years old female with history of multiple ER visits for headache migraine and narcotic seeking behavior. Patient presented to the ER complaining of vomiting blood for the last 5 days. Patient also complaining of headache similar to her previous headache. Patient also complaining of right leg pain for the last 3 days. Patient denied any chest pain or shortness of breath. No fever or chills. Patient remained stable in the ER. Patient kept asking for narcotics medication mainly for Dilaudid. Patient labs reviewed and showed a stable hemoglobin. No vomiting observed in the ER. Right lower extremity Doppler ultrasound pending. ED Disposition Clinical Impression: Vomiting, Headache, Right thigh pain Disposition: TO HOME OR SELFCARE Is pt being admited?: No Condition: Stable Instructions: Acute Nausea and Vomiting (ED) Prescriptions: Esomeprazole Magnesium [NexIUM] 40 mg PO QDAY #30 capsule. Ondansetron [Zofran Odt] 4 mg PO Q8HR PRN #14 tab.rapdis PRN Reason: Nausea And Vomiting Referrals: [facility] [Provider Group] - 3-5 Days <KAYLEIGH CRAIG - Last Filed: 09/07/19 00:46> ED Review of Systems ROS: Stated complaint: MIGRAINE Other details as noted in HPI ED Course Vital Signs 09/06/19 09/06/19 09/06/19 19:15 20:00 20:15 Temperature 98.8 F 98.3 F Pulse Rate 118 H 102 H 100 H Respiratory 18 15 20 Rate Blood Pressure 182/99 140/85 Blood Pressure 140/85 [Right] O2 Sat by Pulse 97 98 97 Oximetry 09/06/19 09/06/19 09/06/19 20:30 21:00 21:30 Temperature Pulse Rate 99 H 96 H 89 Respiratory 21 12 20 Rate Blood Pressure 166/73 154/96 148/91 Blood Pressure [Right] O2 Sat by Pulse 97 95 98 Oximetry 09/06/19 09/06/19 09/06/19 22:00 22:02 22:34 Temperature Pulse Rate 97 H 102 H Respiratory 19 19 Rate Blood Pressure 148/91 148/91 148/91 Blood Pressure [Right] O2 Sat by Pulse 97 97 95 Oximetry ED Medical Decision Making - Lab Data Result diagrams: 09/06/19 20:47 09/06/19 21:02 - Radiology Data Radiology results: report reviewed No sonographic evidence for DVT in the right lower extremity according to Doppler lower extremity ultrasound radiologist impression - Medical Decision Making Patient is discharged home. Critical care attestation.: If time is entered above; I have spent that time in minutes in the direct care of this critically ill patient, excluding procedure time. ED Disposition Is pt being admited?: No Does the pt Need Aspirin: No
[2019-09-06 21:22] LABS: Basophils # (Auto) 0.1 K/mm3 (0.0-0.1); Basophils % (Auto) 0.4 % (0.0-1.8); Eosinophils % (Auto) 0.3 % (0.0-4.3); Hematocrit 40.2 % (30.3-42.9); Hemoglobin 13.7 gm/dl (10.1-14.3); Lymphocytes # (Auto) 0.9 K/mm3 (1.2-5.4); Mean Corpuscular HGB Conc 34 % (30-34); Mean Corpuscular Volume 91 fl (79-97); Monocytes # (Auto) 0.9 K/mm3 (0.0-0.8); Monocytes % (Auto) 7.8 % (0.0-7.3); Platelet Count 297 K/mm3 (140-440); Red Blood Count 4.41 M/mm3 (3.65-5.03); Red Cell Distribution Width 14.5 % (13.2-15.2)
[2019-09-06 21:40] LABS: Alanine Aminotransferase 12 units/L (7-56); Albumin 4.2 g/dL (3.9-5); BUN/Creatinine Ratio 29; Blood Urea Nitrogen 23 mg/dL (7-17); Calcium 10.1 mg/dL (8.4-10.2); Hemolysis Index 18
[2019-09-06 21:46] LABS: Partial Thromboplastin Time 26.7 Sec. (24.2-36.6)
[2019-09-06] MEDS ORDERED: fentaNYL 100 MCG/2 ML INJ IV ONE (23:00)
[2019-09-06] MEDS ORDERED: diazePAM 5 MG TAB PO ONE (23:03)
--- NOTE | 2019-09-07 00:37 | Vascular Lab Report ---
DUPLEX DOPPLER LOWER EXTREMITY VEINS, RIGHT INDICATION: Right leg pain and swelling. TECHNIQUE: Duplex doppler imaging was performed through the veins of the right lower extremity using venous comp ression and other maneuvers. COMPARISON: None available. FINDINGS: Common Femoral vein: Negative. Superficial Femoral vein: Negative. Popliteal vein: Negative. Calf veins: Negative. Additional findings: None. IMPRESSION: 1. No sonographic evidence for DVT in the right lower extremity. Signer Name: Deangelo Jones MD Signed: 09/07/2019 12:33 AM Workstation Name: [id number]
[2019-09-07 00:51] VITALS: BP 146/88
== END 2019-09-07 01:02 | disposition home or self-care (01) ==
LOC: ED 19:06
DX: R11.10 Vomiting, unspecified (principal); M79.651 Pain in right thigh; G43.909 Migraine, unspecified, not intractable, without status migrainosus; F17.200 Nicotine dependence, unspecified, uncomplicated; Z90.49 Acquired absence of other specified parts of digestive tract; Z98.890 Other specified postprocedural states; Z79.899 Other long term (current) drug therapy; Z88.1 Allergy status to other antibiotic agents; Z88.5 Allergy status to narcotic agent; Z88.8 Allergy status to other drugs, medicaments and biological substances
CPT/HCPCS: 36415; 80053; 85025; 85610; 85730; 86850; 86900; 86901; 93971; 96374; 96375; 99284; C9113; J2405; J3010

== ENCOUNTER 2019-09-07 10:47 | Emergency (ER) | payer MEDICAID ==
--- NOTE | 2019-09-07 12:43 | Event Note ---
ED Screening Note ED Screening Note: states she has n/v states she has a dx with gastroparesis but states she has not had issues in 7 years no diarrhea no dysuria PMHx chronic back pain states she takes roxicodone, fentanyl patch, ambien This initial assessment/diagnostic orders/clinical plan/treatment(s) is/are subject to change based on patients health status, clinical progression and re- assessment by fellow clinical providers in the ED. Further treatment and workup at subsequent clinical providers discretion. Patient/guardian urged not to elope from the ED as their condition may be serious if not clinically assessed and managed. Initial orders include: labs, UA
[2019-09-07 12:50] VITALS: BP 139/94
[2019-09-07 13:24] LABS: Basophils # (Auto) 0.1 K/mm3 (0.0-0.1); Basophils % (Auto) 0.7 % (0.0-1.8); Eosinophils % (Auto) 0.2 % (0.0-4.3); Hemoglobin 14.3 gm/dl (10.1-14.3); Lymphocytes # (Auto) 1.5 K/mm3 (1.2-5.4); Monocytes # (Auto) 1.2 K/mm3 (0.0-0.8); Monocytes % (Auto) 14.8 % (0.0-7.3)
[2019-09-07 13:35] LABS: Hematocrit 42.4 % (30.3-42.9); Mean Corpuscular HGB Conc 34 % (30-34); Mean Corpuscular Volume 91 fl (79-97); Platelet Count 303 K/mm3 (140-440); Red Blood Count 4.65 M/mm3 (3.65-5.03); Red Cell Distribution Width 14.2 % (13.2-15.2)
[2019-09-07 13:49] LABS: Calcium 10.2 mg/dL (8.4-10.2)
[2019-09-07 14:25] LABS: Albumin 4.4 g/dL (3.9-5)
--- NOTE | 2019-09-07 15:05 | Emergency Department Report ---
ED General Adult HPI - General Chief complaint: Nausea/Vomiting/Diarrhea Stated complaint: HEADACHE Time Seen by Provider: 09/07/19 12:41 Source: patient Mode of arrival: Ambulatory Limitations: No Limitations - History of Present Illness Initial comments: Patient is 54 years old female with history of migraine and gastroparesis. Patient has multiple ER visit for different complaint. Patient was seen here last night for vomiting blood. Patient today is complaining of urinary symptoms. She stated that she has been having increased urinary frequency and dysuria. Patient denied any fever or chills. No abdominal pain. - Related Data Home Medications Medication Instructions Recorded Confirmed Last Taken fentaNYL [Fentanyl] 1 each TD Q72H 12/18/15 08/14/19 03/15/19 Oxycodone HCl [Roxicodone TAB] 30 mg PO QID PRN 06/24/16 08/14/19 03/17/19 Zolpidem [Ambien] 10 mg PO QHS 11/08/16 08/14/19 03/17/19 carisoprodoL [Soma] 350 mg PO QID 11/08/16 08/14/19 03/17/19 Previous Rx's Medication Instructions Recorded Last Taken Type Aspirin EC [Halfprin EC] 81 mg PO QDAY #30 tablet. 08/14/19 Unknown Rx AtorvaSTATin [Lipitor] 40 mg PO QHS #30 tablet 08/14/19 Unknown Rx Nicotine [Habitrol] 14 mg TD DAILY #30 patch 08/14/19 Unknown Rx hydrALAZINE [Apresoline TAB] 10 mg PO BID #60 tablet 08/14/19 Unknown Rx oxyCODONE [roxiCODONE] 5 mg PO BID PRN #6 tablet 08/14/19 Unknown Rx Esomeprazole Magnesium [NexIUM] 40 mg PO QDAY #30 capsule. 09/06/19 Unknown Rx Ondansetron [Zofran Odt] 4 mg PO Q8HR PRN #14 tab.rapdis 09/06/19 Unknown Rx Allergies Allergy/AdvReac Type Severity Reaction Status Date / Time hydrocodone Allergy Vomiting Verified 01/14/19 20:25 ketorolac tromethamine Allergy Anaphylaxis Verified 01/14/19 20:25 [From Toradol] meperidine HCl [From Demerol] Allergy Swelling Verified 01/14/19 20:25 morphine Allergy Rash Verified 01/14/19 20:25 ED Review of Systems ROS: Stated complaint: HEADACHE Other details as noted in HPI Comment: All other systems reviewed and negative Constitutional: denies: chills, fever Respiratory: denies: cough, shortness of breath, SOB with exertion Cardiovascular: denies: chest pain Gastrointestinal: nausea. denies: abdominal pain, vomiting, diarrhea, constipation, hematemesis, melena, hematochezia Musculoskeletal: denies: back pain ED Past Medical Hx - Past Medical History Hx Hypertension: No Hx Congestive Heart Failure: No Hx Diabetes: No Hx Arthritis: No Hx Headaches / Migraines: Yes (Complex) Hx Seizures: No Hx Asthma: No Hx COPD: No Hx Dementia: No Hx HIV: No Additional medical history: Arnold Chiari malformation. ruptured disc in back. TIA. meningitis x6 - Surgical History Past Surgical History?: Yes Hx Cholecystectomy: Yes Additional Surgical History: Arnold-Chiari malformation repaired, cyst removed from left neck - Social History Smoking Status: Current Every Day Smoker Substance Use Type: None - Medications Home Medications: Home Medications Medication Instructions Recorded Confirmed Last Taken Type fentaNYL [Fentanyl] 1 each TD Q72H 12/18/15 08/14/19 03/15/19 History Oxycodone HCl [Roxicodone TAB] 30 mg PO QID PRN 06/24/16 08/14/19 03/17/19 History Zolpidem [Ambien] 10 mg PO QHS 11/08/16 08/14/19 03/17/19 History carisoprodoL [Soma] 350 mg PO QID 11/08/16 08/14/19 03/17/19 History Aspirin EC [Halfprin EC] 81 mg PO QDAY #30 tablet. 08/14/19 Unknown Rx AtorvaSTATin [Lipitor] 40 mg PO QHS #30 tablet 08/14/19 Unknown Rx Nicotine [Habitrol] 14 mg TD DAILY #30 patch 08/14/19 Unknown Rx hydrALAZINE [Apresoline TAB] 10 mg PO BID #60 tablet 08/14/19 Unknown Rx oxyCODONE [roxiCODONE] 5 mg PO BID PRN #6 tablet 08/14/19 Unknown Rx Esomeprazole Magnesium [NexIUM] 40 mg PO QDAY #30 capsule. 09/06/19 Unknown Rx Ondansetron [Zofran Odt] 4 mg PO Q8HR PRN #14 tab.rapdis 09/06/19 Unknown Rx ED Physical Exam - General Limitations: No Limitations General appearance: alert, in no apparent distress - Head Head exam: Present: atraumatic, normocephalic, normal inspection - Eye Eye exam: Present: normal appearance, PERRL - ENT ENT exam: Present: normal exam, normal orophraynx, mucous membranes moist - Neck Neck exam: Present: normal inspection, full ROM. Absent: tenderness, meningismus, lymphadenopathy, thyromegaly - Respiratory Respiratory exam: Present: normal lung sounds bilaterally - Cardiovascular Cardiovascular Exam: Present: regular rate, normal rhythm, normal heart sounds - GI/Abdominal GI/Abdominal exam: Present: soft, normal bowel sounds. Absent: distended, tenderness, guarding, rebound, rigid, organomegaly, mass, bruit, pulsatile mass, hernia - Extremities Exam Extremities exam: Present: normal inspection, full ROM, normal capillary refill. Absent: pedal edema, calf tenderness - Back Exam Back exam: Present: normal inspection, full ROM. Absent: CVA tenderness (R), CVA tenderness (L), muscle spasm, paraspinal tenderness, vertebral tenderness - Neurological Exam Neurological exam: Present: alert, oriented X3, CN II-XII intact - Psychiatric Psychiatric exam: Present: normal mood - Skin Skin exam: Present: warm, intact, normal color ED Course Vital Signs 09/07/19 12:48 Temperature 98.1 F Pulse Rate 104 H Respiratory 18 Rate Blood Pressure 139/94 O2 Sat by Pulse 94 Oximetry - Reevaluation(s) Reevaluation #1: 09/07/19 15:34 Patient asked for pain medicine. Patient stated that the only medicine that works for her pain is Dilaudid. Patient is showing a narcotic seeking behavior. I thoroughly reviewed her previous records. Patient given Tylenol for pain. ED Medical Decision Making - Lab Data Result diagrams: 09/07/19 13:01 09/07/19 13:01 Critical care attestation.: If time is entered above; I have spent that time in minutes in the direct care of this critically ill patient, excluding procedure time. ED Disposition Clinical Impression: Drug-seeking behavior, Nausea and vomiting Disposition: Z-07 ELOPED Is pt being admited?: No Condition: Stable
[2019-09-07] MEDS ORDERED: ONDANSETRON 4 MG ODT TAB ONE (15:12)
[2019-09-07] MEDS ORDERED: ACETAMINOPHEN 500 MG TAB ONE (15:13)
[2019-09-07] MEDS ORDERED: ACETAMINOPHEN 500 MG TAB PO ONE (15:17)
[2019-09-07] MEDS ORDERED: ONDANSETRON 4 MG ODT TAB PO ONE (15:17)
[2019-09-07 15:28] LABS: Bacteria,Urine 1+ /HPF (Negative); Bilirubin,Urine NEG (Negative); Blood,Urine SM (Negative); Color,Urine Amber (Yellow); Mucus,Urine 3+ /HPF
[2019-09-07] MEDS ORDERED: ONDANSETRON 4 MG/2 ML INJ IM ONE (15:33)
== END 2019-09-07 16:12 | disposition left against medical advice (07) ==
LOC: ED 10:47
DX: Z76.5 Malingerer [conscious simulation] (principal); G43.909 Migraine, unspecified, not intractable, without status migrainosus; F17.200 Nicotine dependence, unspecified, uncomplicated; Z90.49 Acquired absence of other specified parts of digestive tract; Z88.6 Allergy status to analgesic agent
CPT/HCPCS: 36415; 80053; 81001; 83690; 85025; 99283; J2405; Q0162

== ENCOUNTER 2019-09-11 17:38 | Observation (INO) | payer MEDICAID ==
--- NOTE | 2019-09-11 17:44 | Event Note ---
ED Screening Note ED Screening Note: 54 yo female with sudden onset of stuttering speech right sided weakness This initial assessment/diagnostic orders/clinical plan/treatment(s) is/are subject to change based on patients health status, clinical progression and re- assessment by fellow clinical providers in the ED. Further treatment and workup at subsequent clinical providers discretion. Patient/guardian urged not to elope from the ED as their condition may be serious if not clinically assessed and managed. Initial orders include: CODE stroke activation
[2019-09-11 18:08] LABS: Basophils % (Auto) 0.5 % (0.0-1.8); Eosinophils % (Auto) 0.3 % (0.0-4.3); Hematocrit 43.4 % (30.3-42.9); Hemoglobin 15.1 gm/dl (10.1-14.3); Lymphocytes # (Auto) 2.1 K/mm3 (1.2-5.4); Lymphocytes % (Auto) 25.8 % (13.4-35.0); Mean Corpuscular HGB Conc 35 % (30-34); Mean Corpuscular Volume 91 fl (79-97); Monocytes # (Auto) 0.9 K/mm3 (0.0-0.8); Monocytes % (Auto) 11.3 % (0.0-7.3); Platelet Count 329 K/mm3 (140-440); Red Blood Count 4.78 M/mm3 (3.65-5.03); Red Cell Distribution Width 13.9 % (13.2-15.2)
--- NOTE | 2019-09-11 18:19 | Emergency Department Report ---
ED Neuro Deficit HPI - General Chief Complaint: Neuro Symptoms/Deficit Stated Complaint: POSS STROKE Time Seen by Provider: 09/11/19 17:44 Source: patient Mode of arrival: Ambulatory Limitations: No Limitations - History of Present Illness Initial Comments: [facility] Date of Service: 09/11/2019 17:43:13 Impression: Rule Out Acute Ischemic Stroke Comments/Sign-Out: the patient seems to have headache with right-sided weakness and numbness and some stuttering speech which is not typical for stroke. She is not actually make any word errors she just has a stuttering halting quality to her speech. She mos t recently had a very extensive workup in July of this year for the same symptoms. No abnormality was found on her neuroimaging. This was felt to be most likely recurrence of prior strokes symptoms less likely TIA. If symtpoms improve with tx of CERVANTES can likely hold off on additonal full stroke workup given full w/u done in Jul for same thing. IF she does not improve or declines can recheck MRI brain, toxic metabolic w/u Metrics: Last Known Well: 09/11/2019 17:00:00 [employer] Notification Time: 09/11/2019 17:42:44 Arrival Time: 09/11/2019 17:38:00 Stamp Time: 09/11/2019 17:43:13 Time First Login Attempt: 09/11/2019 17:51:00 Video Start Time: 09/11/2019 17:51:00 Symptoms: n/v/cervantes NIHSS Start Assessment Time: 09/11/2019 17:54:31 Patient is not a candidate for tPA. Patient was not deemed candidate for tPA thrombolytics because of history is not consistent with probable stroke with multiple similar spells over the years and negative workups in the past. Brisk outweighs benefit. Video End Time: 09/11/2019 18:14:51 CT head showed no acute hemorrhage or acute core infarct. Clinical Presentation is not Suggestive of Large Vessel Occlusive Disease, Patient is not a Candidate for Thrombectomy Radiologist was not called back for review of advanced imaging because ED Physician notified of diagnostic impression and management plan on 09/11/2019 18:14:52 Our recommendations are outlined below. Recommendations: Activate Stroke Protocol Admission/Order Set Stroke/Telemetry Floor Neuro Checks Bedside Swallow Eval DVT Prophylaxis IV Fluids, Normal Saline Head of Bed Below 30 Degrees Euglycemia and Avoid Hyperthermia (PRN Acetaminophen) she can continue home regimen Lipid Panel to Be Obtained, if Not Done in the Last 30 Days Therapies: Physical Therapy, Occupational Therapy, Speech Therapy Assessment When Applicable Dysphaghia Screen: Swallow Evaluation, Bedside NPO Until Swallow Evaluation Disposition: Follow up with Teleneurology Follow up Sign Out: Discussed with Emergency Department Provider History of Present Illness: Patient is a 54 year old Female. Patient was brought by EMS for symptoms of n/v/cervantes She says she heard a pop then developed a CERVANTES at 5pm. She had been throwing up since saturday. Says she has brain damage. She said she has a hx of chiari malformation s/p surgical interventions. Has a hx of cva with right sided weakness and numbness. most recently in July where she had a negative MRI of the brain with the exception of chronic encephalomalacia seen in the left hemisphere had a stroke at some point. The patient is extremely vague historian.says this flavor of symptoms has happened on at least 4 prior occasions but this was worse in terms of the stuttering of her speech and feeling like she is weak. She says she feels weak all over not specifically on one side. CT head showed no acute hemorrhage or acute core infarct. Examination: 1A: Level of Consciousness - Alert; keenly responsive + 0 1B: Ask Month and Age - Both Questions Right + 0 1C: Blink Eyes & Squeeze Hands - Performs Both Tasks + 0 2: Test Horizontal Extraocular Movements - Normal + 0 3: Test Visual Sánchez - No Visual Loss + 0 4: Test Facial Palsy (Use Grimace if Obtunded) - Normal symmetry + 0 5A: Test Left Arm Motor Drift - No Drift for 10 Seconds + 0 5B: Test Right Arm Motor Drift - No Drift for 10 Seconds + 0 6A: Test Left Leg Motor Drift - No Drift for 5 Seconds + 0 6B: Test Right Leg Motor Drift - No Drift for 5 Seconds + 0 7: Test Limb Ataxia (FNF/Heel-Batista) - No Ataxia + 0 8: Test Sensation - Mild-Moderate Loss: Less Sharp/More Dull + 1 9: Test Language/Aphasia - Normal; No aphasia + 0 10: Test Dysarthria - Normal + 0 11: Test Extinction/Inattention - No abnormality + 0 NIHSS Score: 1 Patient was informed the Neurology Consult would happen via TeleHealth consult by way of interactive audio and video telecommunications and consented to receiving care in this manner. Due to the immediate potential for life-threatening deterioration due to underlying acute neurologic illness, I spent 35 minutes providing critical care. This time includes time for face to face visit via telemedicine, review of medical records, imaging studies and discussion of findings with providers, the patient and/or family. Dr Radhika Schroeder [facility] - Related Data Home Medications: Home Medications Medication Instructions Recorded Confirmed Last Taken fentaNYL [Fentanyl] 1 each TD Q72H 12/18/15 08/14/19 03/15/19 Oxycodone HCl [Roxicodone TAB] 30 mg PO QID PRN 06/24/16 08/14/19 03/17/19 Zolpidem [Ambien] 10 mg PO QHS 11/08/16 08/14/19 03/17/19 carisoprodoL [Soma] 350 mg PO QID 11/08/16 08/14/19 03/17/19 Previous Rx's Medication Instructions Recorded Last Taken Type Aspirin EC [Halfprin EC] 81 mg PO QDAY #30 tablet. 08/14/19 Unknown Rx AtorvaSTATin [Lipitor] 40 mg PO QHS #30 tablet 08/14/19 Unknown Rx Nicotine [Habitrol] 14 mg TD DAILY #30 patch 08/14/19 Unknown Rx hydrALAZINE [Apresoline TAB] 10 mg PO BID #60 tablet 08/14/19 Unknown Rx oxyCODONE [roxiCODONE] 5 mg PO BID PRN #6 tablet 08/14/19 Unknown Rx Esomeprazole Magnesium [NexIUM] 40 mg PO QDAY #30 capsule. 09/06/19 Unknown Rx Ondansetron [Zofran Odt] 4 mg PO Q8HR PRN #14 tab.rapdis 09/06/19 Unknown Rx Allergies/Adverse Reactions: Allergies Allergy/AdvReac Type Severity Reaction Status Date / Time hydrocodone Allergy Vomiting Verified 09/11/19 17:43 ketorolac tromethamine Allergy Anaphylaxis Verified 09/11/19 17:43 [From Toradol] meperidine HCl [From Demerol] Allergy Swelling Verified 09/11/19 17:43 morphine Allergy Rash Verified 09/11/19 17:43 ED Review of Systems ROS: Stated complaint: POSS STROKE Other details as noted in HPI ED Past Medical Hx - Past Medical History Hx Hypertension: No Hx Congestive Heart Failure: No Hx Diabetes: No Hx Arthritis: No Hx Headaches / Migraines: Yes (Complex) Hx Seizures: No Hx Asthma: No Hx COPD: No Hx Dementia: No Hx HIV: No Additional medical history: Arnold Chiari malformation. ruptured disc in back. TIA. meningitis x6 - Surgical History Hx Cholecystectomy: Yes Additional Surgical History: Arnold-Chiari malformation repaired, cyst removed from left neck - Social History Smoking Status: Current Every Day Smoker Substance Use Type: None - Medications Home Medications: Home Medications Medication Instructions Recorded Confirmed Last Taken Type fentaNYL [Fentanyl] 1 each TD Q72H 12/18/15 08/14/19 03/15/19 History Oxycodone HCl [Roxicodone TAB] 30 mg PO QID PRN 06/24/16 08/14/19 03/17/19 History Zolpidem [Ambien] 10 mg PO QHS 11/08/16 08/14/19 03/17/19 History carisoprodoL [Soma] 350 mg PO QID 11/08/16 08/14/19 03/17/19 History Aspirin EC [Halfprin EC] 81 mg PO QDAY #30 tablet. 08/14/19 Unknown Rx AtorvaSTATin [Lipitor] 40 mg PO QHS #30 tablet 08/14/19 Unknown Rx Nicotine [Habitrol] 14 mg TD DAILY #30 patch 08/14/19 Unknown Rx hydrALAZINE [Apresoline TAB] 10 mg PO BID #60 tablet 08/14/19 Unknown Rx oxyCODONE [roxiCODONE] 5 mg PO BID PRN #6 tablet 08/14/19 Unknown Rx Esomeprazole Magnesium [NexIUM] 40 mg PO QDAY #30 capsule. 09/06/19 Unknown Rx Ondansetron [Zofran Odt] 4 mg PO Q8HR PRN #14 tab.rapdis 09/06/19 Unknown Rx ED Neuro Physical Exam - General Limitations: No Limitations Suspected Stroke: No - NIHSS Assessment Interval: Baseline 1a. Level of Consciousness: alert/keenly responsive 1b. LOC Questions: answers both correctly 1c. LOC Commands: performs tasks correctly 2. Best Gaze: normal 3. Visual: no visual loss 4. Facial Palsy: normal symmetrical movement 5b. Motor Arm Right: no drift 5a. Motor Arm Left: no drift 6a. Motor Leg Left: no drift 6b. Motor Leg Right: no drift 7. Limb Ataxia: absent 8. Sensory: mild/moderate sensory loss 9. Best Language: no aphasia 10. Dysarthria: normal 11. Extinction/Inattention: no abnormality Total Score: 1 Stroke Severity: Minor Stroke - Lab Data Result diagrams: 09/11/19 17:59 Lab Results 09/11/19 09/11/19 Range/Units 17:53 17:59 WBC 8.0 (4.5-11.0) K/mm3 RBC 4.78 (3.65-5.03) M/mm3 Hgb 15.1 H (10.1-14.3) gm/dl Hct 43.4 H (30.3-42.9) % MCV 91 (79-97) fl MCH 32 (28-32) pg MCHC 35 H (30-34) % RDW 13.9 (13.2-15.2) % Plt Count 329 (140-440) K/mm3 Lymph % (Auto) 25.8 (13.4-35.0) % Rapides % (Auto) 11.3 H (0.0-7.3) % Eos % (Auto) 0.3 (0.0-4.3) % Baso % (Auto) 0.5 (0.0-1.8) % Lymph # 2.1 (1.2-5.4) K/mm3 Rapides # 0.9 H (0.0-0.8) K/mm3 Eos # 0.0 (0.0-0.4) K/mm3 Baso # 0.0 (0.0-0.1) K/mm3 Seg Neutrophils % 62.1 (40.0-70.0) % Seg Neutrophils # 5.0 (1.8-7.7) K/mm3 POC Glucose 128 H (70-105) Critical care attestation.: If time is entered above; I have spent that time in minutes in the direct care of this critically ill patient, excluding procedure time. ED Disposition Clinical Impression: Migraine headache with aura Qualifiers: Status migrainosus presence: without status migrainosus Intractability: not intractable Qualified Code(s): G43.109 - Migraine with aura, not intractable, without status migrainosus Disposition: OP ADMIT IP TO THIS HOSP Is pt being admited?: Yes Condition: Stable
[2019-09-11 18:20] LABS: INR 1.03 (0.87-1.13)
[2019-09-11 18:21] LABS: Partial Thromboplastin Time 27.2 Sec. (24.2-36.6)
[2019-09-11 18:24] LABS: Alanine Aminotransferase 46 units/L (7-56); Albumin 4.3 g/dL (3.9-5); BUN/Creatinine Ratio 23; Blood Urea Nitrogen 18 mg/dL (7-17); Calcium 9.3 mg/dL (8.4-10.2); Hemolysis Index 5
--- NOTE | 2019-09-11 18:32 | Cat Scan Report ---
CT head/brain wo con INDICATION / CLINICAL INFORMATION: 54 years Female; Stroke symptoms. Slurred speech and right-sided weakness TECHNIQUE: Routine CT head without contrast. All CT scans at this location are performed using CT dos e reduction for ALARA by means of automated exposure control. COMPARISON: 08/13/2019 FINDINGS: BRAIN / INTRACRANIAL CONTENTS: Encephalomalacia seen in the left cerebral hemisphere in the inferior aspect of the frontoparietal region on the left. Findings in this region could be responsible for pat ient's symptomatology. Specifically, there is encephalomalacia involving the precentral gyrus, predom inantly in the mid and lower portions, which certainly could affect patient's tongue and therefore sp eech. It would be difficult to evaluate for small, alvaro-infarct areas of ischemia without diffusion imaging by MRI. Prior suboccipital craniectomy noted. This is unchanged from prior. Otherwise, no acute hemorrhage, mass effect, midline shift, hydrocephalus, or acute, large territoria l infarct. Minimal cerebral atrophy. There are mild areas of decreased attenuation in the white matter of the cerebral hemispheres. These are nonspecific findings and may be related to microangiopathy (hypertension, diabetes, atheroscleros is), given the patient's age. It might be difficult to evaluate for small areas of ischemia without d iffusion imaging by MRI. CRANIOCERVICAL JUNCTION: No significant abnormality. ORBITS: No significant abnormality of visualized orbits. SINUSES / MASTOIDS: Mild to moderate mucosal thickening seen in the left sphenoid sinus. ADDITIONAL FINDINGS: Atherosclerotic disease is seen in the anterior and posterior circulation. IMPRESSION: 1. No focal mass, hemorrhage, hydrocephalus, or acute, large territorial infarct. No detrimental alberto ge from prior exam appreciated. Follow-up with diffusion imaging by MRI, as clinically warranted. This exam was performed as part of a code stroke protocol. The exam was completed on 09/11/2019 442 PM central standard time. The exam was reviewed at 5:20 PM central standard time and Dr. Ceja was noti fied at 526 p.m. central standard time. Signer Name: Maxi Cano MD, III Signed: 09/11/2019 6:28 PM Workstation Name: [id number]
--- NOTE | 2019-09-11 18:32 | Emergency Department Report ---
HPI - General Chief Complaint: Neuro Symptoms/Deficit Time Seen by Provider: 09/11/19 17:44 - HPI HPI: 54-year-old female presents to the emergency department from home through triage with the complaint of left-sided headache, nausea and vomiting, stuttering speech and right-sided weakness that started about 5 PM. The patient says that she felt something "pop" in her head and then began having the other symptoms. She has a past medical history of previous CVA, seizures, gastroparesis, chronic pain syndrome, hypertension. The patient was here about 1 month ago with similar symptoms. At that time she had CT angiography of the head and neck, brain MRI and a full stroke work-up that did not show any obvious acute process at that time. The patient was seen by 1 of the ER physicians in triage and a code stroke was initiated. The patient took some Reglan for his symptoms with out much relief. She says she has a previous history of brain surgery from Chiari malformation. ED Past Medical Hx - Past Medical History Hx Hypertension: No Hx Congestive Heart Failure: No Hx Diabetes: No Hx Arthritis: No Hx Headaches / Migraines: Yes (Complex) Hx Seizures: No Hx Asthma: No Hx COPD: No Hx Dementia: No Hx HIV: No Additional medical history: Arnold Chiari malformation. ruptured disc in back. TIA. meningitis x6 - Surgical History Hx Cholecystectomy: Yes Additional Surgical History: Arnold-Chiari malformation repaired, cyst removed from left neck - Social History Smoking Status: Current Every Day Smoker Substance Use Type: None - Medications Home Medications: Home Medications Medication Instructions Recorded Confirmed Last Taken Type fentaNYL [Fentanyl] 1 each TD Q72H 12/18/15 08/14/19 03/15/19 History Oxycodone HCl [Roxicodone TAB] 30 mg PO QID PRN 06/24/16 08/14/19 03/17/19 History Zolpidem [Ambien] 10 mg PO QHS 11/08/16 08/14/19 03/17/19 History carisoprodoL [Soma] 350 mg PO QID 11/08/16 08/14/19 03/17/19 History Aspirin EC [Halfprin EC] 81 mg PO QDAY #30 tablet. 08/14/19 09/11/19 Unknown Rx AtorvaSTATin [Lipitor] 40 mg PO QHS #30 tablet 08/14/19 09/11/19 Unknown Rx Nicotine [Habitrol] 14 mg TD DAILY #30 patch 08/14/19 09/11/19 Unknown Rx hydrALAZINE [Apresoline TAB] 10 mg PO BID #60 tablet 08/14/19 09/11/19 Unknown Rx oxyCODONE [roxiCODONE] 5 mg PO BID PRN #6 tablet 08/14/19 09/11/19 Unknown Rx Esomeprazole Magnesium [NexIUM] 40 mg PO QDAY #30 capsule. 09/06/19 Unknown Rx Ondansetron [Zofran Odt] 4 mg PO Q8HR PRN #14 tab.rapdis 09/06/19 09/11/19 Unknown Rx ED Review of Systems ROS: Stated complaint: POSS STROKE Other details as noted in HPI Comment: All other systems reviewed and negative Constitutional: denies: chills, fever Eyes: denies: eye pain, vision change ENT: denies: ear pain, throat pain Respiratory: denies: cough, shortness of breath Cardiovascular: denies: chest pain, palpitations Gastrointestinal: nausea, vomiting. denies: abdominal pain Genitourinary: denies: dysuria, discharge Musculoskeletal: denies: joint swelling, arthralgia Skin: denies: rash, lesions Neurological: headache, weakness Physical Exam - Physical Exam Physical Exam: GENERAL: The patient is well-developed well-nourished. HENT: Normocephalic. Atraumatic. Patient has moist mucous membranes. EYES: Extraocular motions are intact. Pupils equal reactive to light bilaterally. NECK: Supple. Trachea is midline. CHEST/LUNGS: Clear to auscultation. There is no respiratory distress noted. HEART/CARDIOVASCULAR: Regular. There is no tachycardia. There is no murmur. ABDOMEN: Abdomen is soft, nontender. Patient has normal bowel sounds. There is no abdominal distention. SKIN: Skin is warm and dry. NEURO: The patient is awake, alert, and oriented. The patient is cooperative. Patient has some right upper and lower extremity weakness when compared to the left but they do not hit the gurney. Patient has stuttering speech. No facial asymmetry. MUSCULOSKELETAL: There is no tenderness or deformity. There is no evidence of acute injury. ED Course - Consultations Consultation #1: 09/11/19 18:31 The patient was seen by the telemedicine neurologist, Dr. Schroeder, as soon as the patient returned from CT scan of the head. The neurologist does not feel that the patient is a TPA candidate and recommends conservative treatment with further evaluation of possible CVA. ED Medical Decision Making - Lab Data Result diagrams: 09/11/19 17:59 09/11/19 20:41 - EKG Data -: EKG Interpreted by Ct EKG shows normal: sinus rhythm (PVCs), axis (Left axis deviation), intervals (Prolonged QTC), QRS complexes, ST-T waves Rate: tachycardia (101 bpm) - EKG Data When compared to previous EKG there are: no significant change Interpretation: unchanged when compared t (08/14/19) - Radiology Data CT head/brain wo con INDICATION / CLINICAL INFORMATION: 54 years Female; Stroke symptoms. Slurred speech and right-sided weakness TECHNIQUE: Routine CT head without contrast. All CT scans at this location are performed using CT dose reduction for ALARA by means of automated exposure control. COMPARISON: 08/13/2019 FINDINGS: BRAIN / INTRACRANIAL CONTENTS: Encephalomalacia seen in the left cerebral hemisphere in the inferior aspect of the frontoparietal region on the left. Findings in this region could be responsible for patient's symptomatology. Specifically, there is encephalomalacia involving the precentral gyrus, predominantly in the mid and lower portions, which certainly could affect patient's tongue and therefore speech. It would be difficult to evaluate for small, alvaro-infarct areas of ischemia without diffusion imaging by MRI. Prior suboccipital craniectomy noted. This is unchanged from prior. Otherwise, no acute hemorrhage, mass effect, midline shift, hydrocephalus, or acute, large territorial infarct. Minimal cerebral atrophy. There are mild areas of decreased attenuation in the white matter of the cerebral hemispheres. These are nonspecific findings and may be related to microangiopathy (hypertension, diabetes, atherosclerosis), given the patient's age. It might be difficult to evaluate for small areas of ischemia without diffusion imaging by MRI. CRANIO CERVICAL JUNCTION: No significant abnormality. ORBITS: No significant abnormality of visualized orbits. SINUSES / MASTOIDS: Mild to moderate mucosal thickening seen in the left sphenoid sinus. ADDITIONAL FINDINGS: Atherosclerotic disease is seen in the anterior and posterior circulation. IMPRESSION: 1. No focal mass, hemorrhage, hydrocephalus, or acute, large territorial infarct. No detrimental change from prior exam appreciated. Follow-up with diffusion imaging by MRI, as clinically warranted. - Medical Decision Making This patient presents to the emergency department with a complaint of a left- sided headache, nausea and vomiting, right-sided weakness that started at about 5 PM this evening. She has previous history of CVA. Patient says that she does not have any residual deficits but some records show that she does have a history of this stuttering speech and right-sided weakness. A code stroke was called through triage. CT of the head did not show any bleed, shift, mass, ischemia or any other acute process. She was seen by the telemedicine neurologist who did not feel the patient required TPA at this time and gave her an NIH stroke scale of 1. Patient's labs were mostly unremarkable except for hypokalemia with a potassium of 2.8. I have started replacing this with both oral and IV potassium chloride. The neurologist did not recommend CT angiography studies. Patient will be admitted to the hospital for further evaluation and treatment and was accepted for admission by the hospitalist, Dr. Hamlin. - Differential Diagnosis CVA, TIA, Hypoglycemia, Dysrythmia Critical Care Time: No Critical care attestation.: If time is entered above; I have spent that time in minutes in the direct care of this critically ill patient, excluding procedure time. ED Disposition Clinical Impression: Stroke-like symptoms, Hypokalemia Hypertension Qualifiers: Hypertension type: unspecified Qualified Code(s): I10 - Essential (primary) hypertension Disposition: OP ADMIT IP TO THIS HOSP Is pt being admited?: Yes Condition: Serious Time of Disposition: 18:58
[2019-09-11] MEDS ORDERED: POTASSIUM CHLORIDE ER 20 MEQ TAB PO ONE ×4 (18:52→21:49)
[2019-09-11] MEDS ORDERED: POTASSIUM CHLORIDE 10 MEQ 10 MEQ/100 ML BAG IV SCH (19:00)
[2019-09-11] MEDS ORDERED: ACETAMINOPHEN 325 MG TAB PO ONE (19:01)
[2019-09-11] MEDS ORDERED: ACETAMINOPHEN 325 MG TAB PO PRN (19:25)
[2019-09-11] MEDS ORDERED: ONDANSETRON 4 MG/2 ML INJ IV PRN (19:25)
[2019-09-11] MEDS ORDERED: ONDANSETRON 4 MG/2 ML INJ IV ONE (19:25)
[2019-09-11] MEDS ORDERED: ONDANSETRON 4 MG/2 ML INJ ONE (19:26)
[2019-09-11] MEDS ORDERED: D5W/0.9% NACL 1,000 ML IV SCH (20:00)
[2019-09-11 20:39] LABS: Bilirubin,Urine NEG (Negative); Blood,Urine NEG (Negative); Color,Urine Amber (Yellow); Mucus,Urine FEW /HPF
[2019-09-11 20:44] LABS: Amphetamine Screen,Urine PRESUMPTIVE NEGATIVE; Benzodiazepines Screen,Urine PRESUMPTIVE NEGATIVE; Cannabinoid Screen,Urine PRESUMPTIVE NEGATIVE; Cocaine Screen,Urine PRESUMPTIVE NEGATIVE; Methadone Screen,Urine PRESUMPTIVE NEGATIVE; Opiate Screen,Urine PRESUMPTIVE NEGATIVE
[2019-09-11] MEDS ORDERED: ONDANSETRON 4 MG ODT TAB PO PRN (21:06)
--- NOTE | 2019-09-11 21:06 | History and Physical Report ---
History of Present Illness Date of examination: 09/11/19 Date of admission: 09/11/19 18:58 Chief complaint: Slurred speech and Rt upper extremity weakness History of present illness: 54 y/ocaucasian female presents with stuttering speech and UE weakness.Code stroke was called.Onfurther history taking and review rosa her past admissions shows she had complete CVA work up and was negative.Able to walk in front of me.Has some residual weakness in RUE which appers to be chronic and cw patienthistory.She os on Fentanyl Soma and opiates for pain, Her k was 2.8 hence admission Past Medical History Headaches / Migraines: Yes (Complex) Additional medical history: Arnold Chiari malformation. ruptured disc in back. TIA. meningitis x6 Surgical History Hx Cholecystectomy: Yes Additional Surgical History: Arnold-Chiari malformation repaired, cyst removed from left neck Social History Smoking Status: Current Every Day Smoker Substance Use Type: None Family history Htn Medications Home Medications: Home Medications Medication Instructions Recorded Confirmed Last Taken Type fentaNYL [Fentanyl] 1 each TD Q72H 12/18/15 08/14/19 03/15/19 History Oxycodone HCl [Roxicodone TAB] 30 mg PO QID PRN 06/24/16 08/14/19 03/17/19 History Zolpidem [Ambien] 10 mg PO QHS 11/08/16 08/14/19 03/17/19 History carisoprodoL [Soma] 350 mg PO QID 11/08/16 08/14/19 03/17/19 History Aspirin EC [Halfprin EC] 81 mg PO QDAY #30 tablet. 08/14/19 Unknown Rx AtorvaSTATin [Lipitor] 40 mg PO QHS #30 tablet 08/14/19 Unknown Rx Nicotine [Habitrol] 14 mg TD DAILY #30 patch 08/14/19 Unknown Rx hydrALAZINE [Apresoline TAB] 10 mg PO BID #60 tablet 08/14/19 Unknown Rx oxyCODONE [roxiCODONE] 5 mg PO BID PRN #6 tablet 08/14/19 Unknown Rx Esomeprazole Magnesium [NexIUM] 40 mg PO QDAY #30 capsule. 09/06/19 Unknown Rx Ondansetron [Zofran Odt] 4 mg PO Q8HR PRN #14 tab.rapdis 09/06/19 Unknown Rx Review of Systems ROS: Stated complaint: POSS STROKE Other details as noted in HPI Comment: All other systems reviewed and negative Constitutional: denies: chills, fever Eyes: denies: eye pain, vision change ENT: denies: ear pain, throat pain Respiratory: denies: cough, shortness of breath Cardiovascular: denies: chest pain, palpitations Gastrointestinal: nausea, vomiting. denies: abdominal pain Genitourinary: denies: dysuria, discharge Musculoskeletal: denies: joint swelling, arthralgia Skin: denies: rash, lesions Neurological: headache, weakness Medications and Allergies Allergies Allergy/AdvReac Type Severity Reaction Status Date / Time hydrocodone Allergy Vomiting Verified 09/11/19 17:43 ketorolac tromethamine Allergy Anaphylaxis Verified 09/11/19 17:43 [From Toradol] meperidine HCl [From Demerol] Allergy Swelling Verified 09/11/19 17:43 morphine Allergy Rash Verified 09/11/19 17:43 Home Medications Medication Instructions Recorded Confirmed Last Taken Type fentaNYL [Fentanyl] 1 each TD Q72H 12/18/15 09/12/19 03/15/19 History Oxycodone HCl [Roxicodone TAB] 30 mg PO QID PRN 06/24/16 09/12/19 03/17/19 History Zolpidem [Ambien] 10 mg PO QHS 11/08/16 09/12/19 03/17/19 History carisoprodoL [Soma] 350 mg PO QID 11/08/16 09/12/19 03/17/19 History Aspirin EC [Halfprin EC] 81 mg PO QDAY #30 tablet. 08/14/19 09/12/19 Unknown Rx AtorvaSTATin [Lipitor] 40 mg PO QHS #30 tablet 08/14/19 09/12/19 Unknown Rx Nicotine [Habitrol] 14 mg TD DAILY #30 patch 08/14/19 09/12/19 Unknown Rx hydrALAZINE [Apresoline TAB] 10 mg PO BID #60 tablet 08/14/19 09/11/19 Unknown Rx oxyCODONE [roxiCODONE] 5 mg PO BID PRN #6 tablet 08/14/19 09/11/19 Unknown Rx Esomeprazole Magnesium [NexIUM] 40 mg PO QDAY #30 capsule. 09/06/19 09/12/19 Unknown Rx Ondansetron [Zofran Odt] 4 mg PO Q8HR PRN #14 tab.willie 09/06/19 09/11/19 Unknown Rx Active Meds: Active Medications Acetaminophen (Tylenol) 650 mg PO Q4H PRN PRN Reason: Pain MILD(1-3)/Fever >100.5/CERVANTES Dextrose/Sodium Chloride (D5ns) 1,000 mls @ 100 mls/hr IV DIRECT JOSE Ondansetron HCl (Zofran) 4 mg IV Q3H PRN PRN Reason: Nausea And Vomiting Sodium Chloride (Sodium Chloride Flush Syringe 10 Ml) 10 ml IV BID JOSE Sodium Chloride (Sodium Chloride Flush Syringe 10 Ml) 10 ml IV PRN PRN PRN Reason: LINE FLUSH Exam - Constitutional Vitals: Temp Pulse Resp BP Pulse Ox 86 17 175/86 97 09/11/19 19:59 09/11/19 20:09 09/11/19 19:58 09/11/19 20:09 General appearance: Present: no acute distress, well-nourished - EENT Eyes: Present: PERRL ENT: hearing intact, clear oral mucosa - Neck Neck: Present: supple, normal ROM - Respiratory Respiratory effort: normal Respiratory: bilateral: CTA - Cardiovascular Heart rate: 78 Rhythm: regular Heart Sounds: Present: S1 & S2. Absent: rub, click - Extremities Extremities: no ischemia, pulses intact, pulses symmetrical, No edema Peripheral Pulses: within normal limits - Abdominal General gastrointestinal: Present: soft, non-tender, non-distended, normal bowel sounds Female genitourinary: Present: normal - Rectal Rectal Exam: deferred - Integumentary Integumentary: Present: clear, warm, dry - Musculoskeletal Musculoskeletal: right sided weakness (RUE weakness 45 power) - Psychiatric Psychiatric: appropriate mood/affect, intact judgment & insight - Neurologic Neurologic: CNII-XII intact, moves all extremities, gait normal - Allied Health Allied health notes reviewed: nursing, case management STEVE score - Steve Score Age > 65: (0) No Aspirin use within the Past 7 Days: (0) No 3 or more CAD Risk Factors: (0) No 2 or more Angina events in past 24 hrs: (0) No Known CAD with more than 50% Stenosis: (0) No Elevated Cardiac Markers: (0) No ST Deviation Greater than 0.5mm: (0) No STEVE Score: 0 Results - Labs CBC & Chem 7: 09/11/19 17:59 09/12/19 04:50 Labs: Laboratory Last Values WBC 8.0 K/mm3 (4.5-11.0) 09/11/19 17:59 RBC 4.78 M/mm3 (3.65-5.03) 09/11/19 17:59 Hgb 15.1 gm/dl (10.1-14.3) H 09/11/19 17:59 Hct 43.4 % (30.3-42.9) H 09/11/19 17:59 MCV 91 fl (79-97) 09/11/19 17:59 MCH 32 pg (28-32) 09/11/19 17:59 MCHC 35 % (30-34) H 09/11/19 17:59 RDW 13.9 % (13.2-15.2) 09/11/19 17:59 Plt Count 329 K/mm3 (140-440) 09/11/19 17:59 Lymph % (Auto) 25.8 % (13.4-35.0) 09/11/19 17:59 [place]ulkner % (Auto) 11.3 % (0.0-7.3) H 09/11/19 17:59 Eos % (Auto) 0.3 % (0.0-4.3) 09/11/19 17:59 Baso % (Auto) 0.5 % (0.0-1.8) 09/11/19 17:59 Lymph # 2.1 K/mm3 (1.2-5.4) 09/11/19 17:59 [place]ner # 0.9 K/mm3 (0.0-0.8) H 09/11/19 17:59 Eos # 0.0 K/mm3 (0.0-0.4) 09/11/19 17:59 Baso # 0.0 K/mm3 (0.0-0.1) 09/11/19 17:59 Seg Neutrophils % 62.1 % (40.0-70.0) 09/11/19 17:59 Seg Neutrophils # 5.0 K/mm3 (1.8-7.7) 09/11/19 17:59 PT 13.6 Sec. (12.2-14.9) 09/11/19 17:59 INR 1.03 (0.87-1.13) 09/11/19 17:59 APTT 27.2 Sec. (24.2-36.6) 09/11/19 17:59 Sodium 139 mmol/L (137-145) 09/11/19 17:59 Potassium 2.8 mmol/L (3.6-5.0) L* D 09/11/19 17:59 Chloride 102.6 mmol/L (98-107) 09/11/19 17:59 Carbon Dioxide 22 mmol/L (22-30) 09/11/19 17:59 Anion Gap 17 mmol/L 09/11/19 17:59 BUN 18 mg/dL (7-17) H 09/11/19 17:59 Creatinine 0.8 mg/dL (0.7-1.2) 09/11/19 17:59 Estimated GFR > 60 ml/min 09/11/19 17:59 BUN/Creatinine Ratio 23 % 09/11/19 17:59 Glucose 155 mg/dL (65-100) H 09/11/19 17:59 POC Glucose 128 (70-105) H 09/11/19 17:53 Calcium 9.3 mg/dL (8.4-10.2) 09/11/19 17:59 Total Bilirubin 0.30 mg/dL (0.1-1.2) 09/11/19 17:59 AST 26 units/L (5-40) 09/11/19 17:59 ALT 46 units/L (7-56) 09/11/19 17:59 Alkaline Phosphatase 78 units/L (35-129) 09/11/19 17:59 Troponin T < 0.010 ng/mL (0.00-0.029) 09/11/19 17:59 Total Protein 7.7 g/dL (6.3-8.2) 09/11/19 17:59 Albumin 4.3 g/dL (3.9-5) 09/11/19 17:59 Albumin/Globulin Ratio 1.3 % 09/11/19 17:59 Urine Color Maria E (Yellow) 09/11/19 20:09 Urine Turbidity Slightly-cloudy (Clear) 09/11/19 20:09 Urine pH 6.0 (5.0-7.0) 09/11/19 20:09 Ur Specific [place] 1.028 (1.003-1.030) 09/11/19 20:09 Urine Protein 100 mg/dl mg/dL (Negative) 09/11/19 20:09 Urine Glucose (UA) Neg mg/dL (Negative) 09/11/19 20:09 Urine Ketones Neg mg/dL (Negative) 09/11/19 20:09 Urine Blood Neg (Negative) 09/11/19 20:09 Urine Nitrite Neg (Negative) 09/11/19 20:09 Urine Bilirubin Neg (Negative) 09/11/19 20:09 Urine Urobilinogen 4.0 mg/dL (<2.0) 09/11/19 20:09 Ur Leukocyte Esterase Tr (Negative) 09/11/19 20:09 Urine WBC (Auto) 6.0 /HPF (0.0-6.0) 09/11/19 20:09 Urine RBC (Auto) 9.0 /HPF (0.0-6.0) 09/11/19 20:09 U Epithel Cells (Auto) 10.0 /HPF (0-13.0) 09/11/19 20:09 Urine Mucus Few /HPF 09/11/19 20:09 Urine Opiates Screen Presumptive negative 09/11/19 20:09 Urine Methadone Screen Presumptive negative 09/11/19 20:09 Ur Barbiturates Screen Presumptive negative 09/11/19 20:09 Ur Phencyclidine Scrn Presumptive negative 09/11/19 20:09 Ur Amphetamines Screen Presumptive negative 09/11/19 20:09 U Benzodiazepines Scrn Presumptive negative 09/11/19 20:09 Urine Cocaine Screen Presumptive negative 09/11/19 20:09 U Marijuana (THC) Screen Presumptive negative 09/11/19 20:09 Drugs of Abuse Note Disclamer 09/11/19 20:09 Plasma/Serum Alcohol < 0.01 % (0-0.07) 09/11/19 17:59 Short CBC 09/11/19 Range/Units 17:59 WBC 8.0 (4.5-11.0) K/mm3 Hgb 15.1 H (10.1-14.3) gm/dl Hct 43.4 H (30.3-42.9) % Plt Count 329 (140-440) K/mm3 BMP 09/11/19 09/11/19 09/12/19 17:59 20:41 04:50 Sodium 139 141 146 H Potassium 2.8 L* D 2.9 L* 2.6 L* Chloride 102.6 103.3 108.3 H Carbon Dioxide 22 21 L 23 BUN 18 H 18 H 16 Creatinine 0.8 0.8 0.8 Glucose 155 H 114 H 117 H Calcium 9.3 9.3 8.8 Cardiac Enzymes 09/11/19 Range/Units 17:59 Troponin T < 0.010 (0.00-0.029) ng/mL Liver Function 09/11/19 Range/Units 17:59 Total Bilirubin 0.30 (0.1-1.2) mg/dL AST 26 (5-40) units/L ALT 46 (7-56) units/L Alkaline Phosphatase 78 (35-129) units/L Albumin 4.3 (3.9-5) g/dL Urine 09/11/19 Range/Units 20:09 Urine Color Maria E (Yellow) Urine pH 6.0 (5.0-7.0) Ur Specific [place] 1.028 (1.003-1.030) Urine Protein 100 mg/dl (Negative) mg/dL Urine Glucose (UA) Neg (Negative) mg/dL - Imaging and Cardiology EKG: report reviewed (81/min sinus rhythm) CT Scan - head: report reviewed (NAF) Assessment and Plan Advance Directives: Yes (Full code) VTE prophylaxis?: Chemical Plan of care discussed with patient/family: Yes - Patient Problems (1) Hypokalemia Current Visit: Yes Status: Acute Plan to address problem: Ceing admitted for Low K Maybe discharged tomorrow if K is corrected In Observation status (2) Hypertension Onset Date: 01/18/15 Current Visit: Yes Status: Chronic Qualifiers: Hypertension type: unspecified Qualified Code(s): I10 - Essential (primary) hypertension Plan to address problem: Cont antihypertensives (3) CVA, old, dysarthria Current Visit: Yes Status: Chronic Plan to address problem: No new workup Code stroke was false alarm Patient baseline is Dysarthria and RUE weakness No MRI ordered (4) HLD (hyperlipidemia) Current Visit: Yes Status: Chronic Qualifiers: Hyperlipidemia type: mixed hyperlipidemia Qualified Code(s): E78.2 - Mixed hyperlipidemia Plan to address problem: Cont Statins (5) Chronic pain Current Visit: Yes Status: Chronic Qualifiers: Chronic pain type: chronic pain syndrome Qualified Code(s): G89.4 - Chronic pain syndrome Plan to address problem: Not initiated on Fentanyl Soma etc Ketorolac -allergy (6) Hyperammonemia Current Visit: Yes Status: Chronic Plan to address problem: Etio unclear Normal LFT's (7) DVT prophylaxis Current Visit: Yes Status: Acute Plan to address problem: On Heparin and GI prophylaxis
[2019-09-11] MEDS ORDERED: LORazepam 2 MG/ML VIAL IV PRN (21:13)
[2019-09-11] MEDS ORDERED: HALOPERIDOL LACTATE 5 MG/1 ML INJ IV PRN (21:13)
[2019-09-11 21:21] LABS: BUN/Creatinine Ratio 23; Blood Urea Nitrogen 18 mg/dL (7-17); Calcium 9.3 mg/dL (8.4-10.2); Hemolysis Index 4
[2019-09-11] MEDS: oxyCODONE 5 MG TAB PO PRN (22:28)
[2019-09-11] MEDS: hydrALAZINE 10 MG TAB PO SCH (22:29)
[2019-09-12] MEDS: LORazepam 2 MG/ML VIAL IV PRN ×2 (03:42→09:11)
[2019-09-12 06:08] LABS: BUN/Creatinine Ratio 20; Blood Urea Nitrogen 16 mg/dL (7-17); Calcium 8.8 mg/dL (8.4-10.2); Hemolysis Index 25
[2019-09-12] MEDS ORDERED: POTASSIUM CHLORIDE ER 20 MEQ TAB PO ONE (07:00)
[2019-09-12] MEDS ORDERED: POTASSIUM CHLORIDE 20 MEQ 20 MEQ/100 ML BAG IV SCH (07:00)
[2019-09-12] MEDS ORDERED: POTASSIUM CHLORIDE 10 MEQ 10 MEQ/100 ML BAG IV SCH (08:00)
[2019-09-12] MEDS ORDERED: MAGNESIUM SULFATE 2 GM/50 ML BAG IV ONE (09:00)
[2019-09-12] MEDS ORDERED: ASPIRIN EC 81 MG TAB PO SCH (10:00)
[2019-09-12] MEDS: NICOTINE 14 MG/24 HR PATCH TD SCH ×2 (10:41→10:46)
[2019-09-12] MEDS: hydrALAZINE 10 MG TAB PO SCH (10:41)
[2019-09-12] MEDS: POTASSIUM CHLORIDE 10 MEQ 10 MEQ/100 ML BAG IV SCH ×3 (10:41→12:17)
[2019-09-12] MEDS: oxyCODONE 5 MG TAB PO PRN (10:51)
--- NOTE | 2019-09-12 11:09 | Magnetic Resonance Report ---
MRI BRAIN 09/12/2019 INDICATION / CLINICAL INFORMATION: right sided weakness, speech difficulty. TECHNIQUE: Multiplanar, multisequence MR images of the brain were obtained. COMPARISON: MRI brain 08/14/2019 FINDINGS: BRAIN / INTRACRANIAL CONTENTS: Unenhanced MR images of the brain were obtained compared to prior exam from 08/14/2019. There has been no change. There is no evidence of acute abnormality. Again seen is evidence of chronic ischemic encephalomalacia in the left hemisphere, involving portion s of the left middle cerebral artery distribution. Ventricles and sulci are otherwise normal in size and shape. There is no evidence of acute ischemic injury, hemorrhage, or mass. There are no abnormal extra-axial fluid collections. Incidental note is made of mild mucosal thickening in the ethmoid sinuses. This is unchanged when com pared to the prior exam. EXTRACRANIAL: Unremarkable CRANIOCERVICAL JUNCTION: No significant abnormality. VASCULAR FLOW-VOIDS: No significant abnormality. IMPRESSION: No acute abnormality. Old left partial MCA territory infarct. No change when compared to 08/14/2019 Signer Name: Alen Mccord MD Signed: 09/12/2019 11:04 AM Workstation Name: [id number]
[2019-09-12 12:08] VITALS: BP 187/133
[2019-09-12] MEDS ORDERED: hydrALAZINE 20 MG/1 ML INJ IV PRN (12:15)
[2019-09-12] MEDS: POTASSIUM CHLORIDE 20 MEQ PACKET FEEDTUBE SCH ×2 (12:51→14:02)
[2019-09-12] MEDS ORDERED: POTASSIUM CHLORIDE 20 MEQ PACKET FEEDTUBE SCH (13:00)
[2019-09-12] MEDS ORDERED: MAGNESIUM OXIDE 400 MG TAB PO SCH (13:00)
[2019-09-12] MEDS ORDERED: amLODIPine 5 MG TAB PO SCH (13:00)
--- NOTE | 2019-09-12 13:07 | Progress Note ---
Subjective Date of service: 08/15/19 Interval history: i SEE THIS LADY ON OUTPATIENT BASIS FOR AMNY YEARS AND SHE IS VERY IDIOSYNCRATIC AND HARD TO TELL EXACTLY WHAT HER HX IS SHE DOES HAVE SEIZURES AND OLD BRAIN DAMAGE CURRENTLY SHE IS UP AND CHICHI DOES RECOGNIZE ME AND RESPONDS WELL SUSPECT SEIZURES SHE IS POORLY COMPLIANT WITH MEDS Objective - Vital Sign Vital Signs - 12hr 09/12/19 09/12/19 09/12/19 03:45 08:06 10:29 Temperature 98.9 F 98.9 F Pulse Rate 74 63 60 Respiratory 18 18 Rate Blood Pressure 166/80 154/75 O2 Sat by Pulse 93 92 Oximetry 09/12/19 11:53 Temperature 98.0 F Pulse Rate 111 H Respiratory 18 Rate Blood Pressure 187/133 O2 Sat by Pulse 92 Oximetry - Laboratory Findings CBC and BMP: 09/11/19 17:59 09/12/19 04:50 Abnormal Lab Findings: Abnormal Labs 09/11/19 09/11/19 09/11/19 17:53 17:59 17:59 Hgb 15.1 H Hct 43.4 H MCHC 35 H Garrett % (Auto) 11.3 H Garrett # 0.9 H Sodium Potassium 2.8 L* D Chloride Carbon Dioxide BUN 18 H Glucose 155 H POC Glucose 128 H Ammonia 09/11/19 09/11/19 09/12/19 20:41 21:29 04:50 Hgb Hct MCHC Garrett % (Auto) Garrett # Sodium 146 H Potassium 2.9 L* 2.6 L* Chloride 108.3 H Carbon Dioxide 21 L BUN 18 H Glucose 114 H 117 H POC Glucose Ammonia 73.0 H
--- NOTE | 2019-09-12 15:19 | Discharge Summary ---
Providers - Providers Date of Admission: 09/11/19 18:58 Date of discharge: 09/12/19 Attending physician: SHAVONNE WANG 09/11/19 Consult to Case Management [CONS] Routine Services Needed at Discharge: Warehouse Administrative Assistant Home Health Services Notified:: case filler 09/12/19 07:20 Consult to Physician [CONS] Routine Comment: Consulting Provider: ANALILIA GALLARDO Physician Instructions: Reason For Exam: right sided weakness,difficult speech Primary care physician: TAKE DOWN INSPECTOR Hospitalization Condition: Fair Disposition: DC-01 TO HOME OR SELFCARE Core Measure Documentation - Palliative Care Palliative Care/ Comfort Measures: Not Applicable - Core Measures Any of the following diagnoses?: none Exam - Constitutional Vitals: Temp Pulse Resp BP Pulse Ox 98.0 F 111 H 18 187/133 92 09/12/19 11:53 09/12/19 11:53 09/12/19 11:53 09/12/19 11:53 09/12/19 11:53 Plan Activity: advance as tolerated Diet: low fat, low cholesterol, low salt Plan of Treatment: 1.Follow up with PCP in 1 week. Follow up with: PRIMARY CARE,MD [Primary Care Provider] - 7 Days Prescriptions: amLODIPine 5 mg PO QDAY #30 tablet Potassium Chloride [K-Dur] 40 meq PO DAILY 5 Days #10 tab
[2019-09-12] MEDS ORDERED: CARISOPRODOL 350 MG TAB PO SCH (18:00)
[2019-09-12] MEDS ORDERED: NON-FORMULARY EACH (Zolpidem 10 MG) PO SCH (22:00)
--- NOTE | 2019-09-13 19:01 | Consultation ---
HISTORY: This is a 54-year-old white female that I am quite familiar with, having followed her in the office for nearly 20 years and she presents at this point with a period of acute confusion and unusual behavior. I did have a chance to review over her MRI scan of the brain. I do not see any acute lesions. She has an old area of volume loss in the left hemisphere, temporoparietal with chronic ischemic change, probably related to childhood trauma. In the past, the patient has related to me the history that she had a injury and this area has undergone progressive atrophy over the years. Several times, she has been thought to have had a stroke, but I have done a very extensive review of her old MRI scans and quite clearly she has a very chronic course. In reviewing her prior MRI scans, I have not seen any diffusion weighted images suggesting a new area of ischemia. It should be noted that this previous area of brain damage on the left side occurred as a result of injury, probably a direct trauma from a depressed fracture of the skull due to forceps delivery. Over the years, she has had a very idiosyncratic behavior, seizures and ongoing pain related to prior hip fractures. She recently moved from [place] to the [facility]. She tends to show up at this hospital often. Reviewing her records indicate she comes here on a very frequent basis and I have reviewed over these records and she frequently comes to the Emergency Room almost on a monthly basis with very similar complaints of headaches and weakness on her right side, nausea and vomiting and right and left hip pain consistently. She has at least 8-9 visits every year. Over the last dozen or so years, all with the same general complaints of headaches, nausea, vomiting, abdominal pain, right-sided headaches and numbness and often is admitted because of possibility of stroke and this is simply this hospital and I am sure she has been admitted by my records at [facility] many times. I see her at this point, she is alert, walking around the samaniego. Vital signs are stable. She understands, sees me, and speaks to me normally, does complain of some right-sided arm pain. She did state to me that she thought that her potassium was low and in fact on evaluating the electrolytes, there did have low potassium of 2.8, which may have been the triggering incident of this problem. IMPRESSION: Longstanding neurological problems related to extensive left-sided brain damage producing seizures, headaches, intellectual problems, a prior history also of compression fractures of both femoral heads. She has social management problem, tends to migrate from several residences and does not maintain a good medical followup. I think it is okay to discharge her at this point. She clearly has not had a new stroke. JOB# [id number] NANCI/NIKKIE
== END 2019-09-12 16:30 | disposition home or self-care (01) ==
LOC: ED 17:38 → 4A 18:58
PROVIDERS: ADMIT Internal Medicine; ATTEND Internal Medicine
DX: R47.9 Unspecified speech disturbances (principal); R29.90 Unspecified symptoms and signs involving the nervous system; E87.6 Hypokalemia; I10 Essential (primary) hypertension; E78.5 Hyperlipidemia, unspecified; G89.29 Other chronic pain; E72.20 Disorder of urea cycle metabolism, unspecified; R11.2 Nausea with vomiting, unspecified; Z86.73 Personal history of transient ischemic attack (TIA), and cerebral infarction without residual deficits
CPT/HCPCS: 36415; 70450; 70551; 80048; 80053; 80307; 81001; 82140; 82150; 82962; 83036; 83735; 84132; 84484; 85025; 85610; 85730; 93005; 93010; 96361; 96365; 96366; 96375; 96376; 99285; A9270; G0378; J2060; J2405; J3246; J3475; J3480; J7042; 80320; G0480

== ENCOUNTER 2019-10-05 14:35 | Emergency (ER) | payer MEDICAID ==
--- NOTE | 2019-10-05 14:49 | Emergency Department Report ---
Blank Doc - Documentation Documentation: 54-year-old female that presents with n/v. This initial assessment/diagnostic orders/clinical plan/treatment(s) is/are subject to change based on patient's health status, clinical progression and re- assessment by fellow clinical providers in the ED. Further treatment and workup at subsequent clinical providers discretion. Patient/guardians urged not to elope from the ED as their condition may be serious if not clinically assessed and managed. Initial orders include: 1- Patient sent to [facility] for further evaluation and treatment 2- labs 3- UA
[2019-10-05 16:07] LABS: Basophils % (Auto) 0.2 % (0.0-1.8); Eosinophils % (Auto) 0.1 % (0.0-4.3); Hematocrit 44.2 % (30.3-42.9); Hemoglobin 15.1 gm/dl (10.1-14.3); Lymphocytes # (Auto) 1.7 K/mm3 (1.2-5.4); Lymphocytes % (Auto) 13.7 % (13.4-35.0); Mean Corpuscular HGB Conc 34 % (30-34); Mean Corpuscular Volume 92 fl (79-97); Monocytes # (Auto) 0.6 K/mm3 (0.0-0.8); Monocytes % (Auto) 5.2 % (0.0-7.3); Platelet Count 401 K/mm3 (140-440); Red Blood Count 4.82 M/mm3 (3.65-5.03); Red Cell Distribution Width 13.6 % (13.2-15.2)
[2019-10-05 16:31] LABS: Alanine Aminotransferase 39 units/L (7-56); Albumin 4.5 g/dL (3.9-5); BUN/Creatinine Ratio 19; Blood Urea Nitrogen 15 mg/dL (7-17); Calcium 9.9 mg/dL (8.4-10.2); Hemolysis Index 34
[2019-10-05] MEDS ORDERED: SODIUM CHLORIDE 0.9% 1000 ML 1,000 ML IV ONE (18:16)
[2019-10-05] MEDS ORDERED: ONDANSETRON 4 MG/2 ML INJ IV ONE (18:16)
--- NOTE | 2019-10-05 18:31 | Emergency Department Report ---
ED N/V/D HPI - General Chief complaint: Nausea/Vomiting/Diarrhea Stated complaint: N/V DIRRHEA Time Seen by Provider: 10/05/19 14:48 Source: patient Mode of arrival: Ambulatory Limitations: No Limitations - History of Present Illness Initial comments: Ms. Sutton is a 54-year-old white female with a history of cholecystectomy ,GERD, TIA, and migraine headaches. pt presents for n/v and right flank pain 5/10 x 3 days. She was seen at [facility] for same on yesterday dx with dehyration. Shes states worsening flank pain today with increased n/v, she denies fever or chills, denies hematuria. she endorses urinary frequency and urgency. There is no hx of renal stones. symptoms are exacerbated by voiding symptoms are relieved by nothing. last po intake this afternoon. Last n/v this after noon. , complaint: nausea, vomiting, other (flank pain ) Onset/Timin -: days(s) Description of Vomiting: food contents Associated Abdominal Pain: Yes Location: flank Radiation: none Pain Scale: 5 Quality: aching Consistency: constant Improves with: none Worsens with: eating Associated Symptoms: nausea/vomiting, dysuria. denies: fever/chills - Related Data Home Medications Medication Instructions Recorded Confirmed Last Taken Zolpidem [Ambien] 10 mg PO QHS 11/08/16 09/12/19 03/17/19 carisoprodoL [Soma] 350 mg PO QID 11/08/16 09/12/19 03/17/19 Previous Rx's Medication Instructions Recorded Last Taken Type Aspirin EC [Halfprin EC] 81 mg PO QDAY #30 tablet. 08/14/19 Unknown Rx AtorvaSTATin [Lipitor] 40 mg PO QHS #30 tablet 08/14/19 Unknown Rx Nicotine [Habitrol] 14 mg TD DAILY #30 patch 08/14/19 Unknown Rx hydrALAZINE [Apresoline TAB] 10 mg PO BID #60 tablet 08/14/19 Unknown Rx oxyCODONE [roxiCODONE] 5 mg PO BID PRN #6 tablet 08/14/19 Unknown Rx Esomeprazole Magnesium [NexIUM] 40 mg PO QDAY #30 capsule. 09/06/19 Unknown Rx Ondansetron [Zofran ODT TAB] 4 mg PO Q8HR PRN #14 tab.rapdis 09/06/19 Unknown Rx Potassium Chloride [K-Dur] 40 meq PO DAILY 5 Days #10 tab 09/12/19 Unknown Rx amLODIPine 5 mg PO QDAY #30 tablet 09/12/19 Unknown Rx Metoclopramide [Reglan] 10 mg PO Q8H PRN #15 tab 10/05/19 Unknown Rx cephALEXin [Keflex] 500 mg PO BID 7 Days #14 cap 10/05/19 Unknown Rx diphenhydrAMINE [Benadryl CAP] 25 mg PO Q8HR PRN #15 capsule 10/05/19 Unknown Rx Allergies Allergy/AdvReac Type Severity Reaction Status Date / Time hydrocodone Allergy Vomiting Verified 09/11/19 17:43 ketorolac tromethamine Allergy Anaphylaxis Verified 09/11/19 17:43 [From Toradol] meperidine HCl [From Demerol] Allergy Swelling Verified 09/11/19 17:43 morphine Allergy Rash Verified 09/11/19 17:43 ED Review of Systems ROS: Stated complaint: N/V DIRRHEA Other details as noted in HPI Constitutional: denies: chills, fever Eyes: denies: eye pain, eye discharge, vision change ENT: denies: ear pain, throat pain Respiratory: denies: cough, shortness of breath, wheezing Cardiovascular: denies: chest pain, palpitations Endocrine: no symptoms reported Gastrointestinal: abdominal pain (right flank pain ), nausea, vomiting. denies: diarrhea Genitourinary: urgency, dysuria, frequency. denies: hematuria, discharge Musculoskeletal: denies: back pain, joint swelling, arthralgia Skin: denies: rash, lesions Neurological: denies: headache, weakness, paresthesias Psychiatric: denies: anxiety, depression Hematological/Lymphatic: denies: easy bleeding, easy bruising ED Past Medical Hx - Past Medical History Previous Medical History?: Yes Hx Hypertension: No Hx Congestive Heart Failure: No Hx Diabetes: No Hx Arthritis: No Hx Headaches / Migraines: Yes (Complex) Hx Seizures: No Hx Asthma: No Hx COPD: No Hx Dementia: No Hx HIV: No Additional medical history: Arnold Chiari malformation. ruptured disc in back. TIA. meningitis x6 - Surgical History Past Surgical History?: Yes Hx Cholecystectomy: Yes Additional Surgical History: Arnold-Chiari malformation repaired, cyst removed from left neck - Social History Smoking Status: Current Every Day Smoker Substance Use Type: None - Medications Home Medications: Home Medications Medication Instructions Recorded Confirmed Last Taken Type Zolpidem [Ambien] 10 mg PO QHS 11/08/16 09/12/19 03/17/19 History carisoprodoL [Soma] 350 mg PO QID 11/08/16 09/12/19 03/17/19 History Aspirin EC [Halfprin EC] 81 mg PO QDAY #30 tablet. 08/14/19 09/12/19 Unknown Rx AtorvaSTATin [Lipitor] 40 mg PO QHS #30 tablet 08/14/19 09/12/19 Unknown Rx Nicotine [Habitrol] 14 mg TD DAILY #30 patch 08/14/19 09/12/19 Unknown Rx hydrALAZINE [Apresoline TAB] 10 mg PO BID #60 tablet 08/14/19 09/11/19 Unknown Rx oxyCODONE [roxiCODONE] 5 mg PO BID PRN #6 tablet 08/14/19 09/11/19 Unknown Rx Esomeprazole Magnesium [NexIUM] 40 mg PO QDAY #30 capsule. 09/06/19 09/12/19 Unknown Rx Ondansetron [Zofran ODT TAB] 4 mg PO Q8HR PRN #14 tab.rapdis 09/06/19 09/11/19 Unknown Rx Potassium Chloride [K-Dur] 40 meq PO DAILY 5 Days #10 tab 09/12/19 Unknown Rx amLODIPine 5 mg PO QDAY #30 tablet 09/12/19 Unknown Rx Metoclopramide [Reglan] 10 mg PO Q8H PRN #15 tab 10/05/19 Unknown Rx cephALEXin [Keflex] 500 mg PO BID 7 Days #14 cap 10/05/19 Unknown Rx diphenhydrAMINE [Benadryl CAP] 25 mg PO Q8HR PRN #15 capsule 10/05/19 Unknown R x ED Physical Exam - General Limitations: No Limitations General appearance: alert, in no apparent distress - Head Head exam: Present: atraumatic, normocephalic - Eye Eye exam: Present: normal appearance, PERRL, EOMI Pupils: Present: normal accommodation - ENT ENT exam: Present: mucous membranes moist - Neck Neck exam: Present: normal inspection - Respiratory Respiratory exam: Present: normal lung sounds bilaterally. Absent: respiratory distress, wheezes, stridor, chest wall tenderness - Cardiovascular Cardiovascular Exam: Present: regular rate, normal rhythm, normal heart sounds. Absent: systolic murmur, diastolic murmur, rubs, gallop - GI/Abdominal GI/Abdominal exam: Present: soft, tenderness (right flank ), normal bowel sounds. Absent: distended, guarding, rebound, rigid, bruit, hernia - Rectal Rectal exam: Present: deferred - Extremities Exam Extremities exam: Present: normal inspection, full ROM. Absent: tenderness - Back Exam Back exam: Present: normal inspection, full ROM, CVA tenderness (R). Absent: tenderness, CVA tenderness (L), vertebral tenderness - Neurological Exam Neurological exam: Present: alert, oriented X3, CN II-XII intact, normal gait - Psychiatric Psychiatric exam: Present: normal affect, normal mood - Skin Skin exam: Present: warm, dry, intact, normal color. Absent: rash ED Course Vital Signs 10/05/19 10/05/19 14:47 21:27 Temperature 98.1 F 98.8 F Pulse Rate 101 H 101 H Respiratory 21 Rate Blood Pressure 165/108 Blood Pressure 205/106 [Right] O2 Sat by Pulse 95 97 Oximetry ED Medical Decision Making - Lab Data Result diagrams: 10/05/19 15:43 10/05/19 15:43 Labs 10/05/19 10/05/19 10/05/19 15:43 15:43 21:13 WBC 12.1 H RBC 4.82 Hgb 15.1 H Hct 44.2 H MCV 92 MCH 31 MCHC 34 RDW 13.6 Plt Count 401 Lymph % (Auto) 13.7 [place] % (Auto) 5.2 Eos % (Auto) 0.1 Baso % (Auto) 0.2 Lymph # 1.7 [place] # 0.6 Eos # 0.0 Baso # 0.0 Seg Neutrophils % 80.8 H Seg Neutrophils # 9.8 H Sodium 141 Potassium 3.5 L Chloride 101.1 Carbon Dioxide 21 L Anion Gap 22 BUN 15 Creatinine 0.8 Estimated GFR > 60 BUN/Creatinine Ratio 19 Glucose 142 H Calcium 9.9 Total Bilirubin 0.50 AST 39 ALT 39 Alkaline Phosphatase 171 H Total Protein 8.2 Albumin 4.5 Albumin/Globulin Ratio 1.2 Lipase 28 Urine Color Yellow Urine Turbidity Cloudy Urine pH 6.0 Ur Specific [place] 1.027 Urine Protein 100 mg/dl Urine Glucose (UA) Neg Urine Ketones Tr Urine Blood Sm Urine Nitrite Neg Urine Bilirubin Neg Urine Urobilinogen 2.0 Ur Leukocyte Esterase Neg Urine WBC (Auto) 11.0 H Urine RBC (Auto) 6.0 U Epithel Cells (Auto) 7.0 Urine Mucus 2+ - Medical Decision Making Ua: pos for wbc, bact, wbc, cbc: wbc: 12, cmp: normal, bp improved ,pt given NS 1000. reglan, benadryl, hydralazine, keflex for UTI, pt will be dc'd to home with rx for keflex, reglan, benadryl pt will follow up with pcp in 2-3 days, pt verbalized agreement and understanding of discharge plan. Critical care attestation.: If time is entered above; I have spent that time in minutes in the direct care of this critically ill patient, excluding procedure time. ED Disposition Clinical Impression: Nausea & vomiting Qualifiers: Vomiting type: unspecified Vomiting Intractability: non-intractable Qualified Code(s): R11.2 - Nausea with vomiting, unspecified UTI (urinary tract infection) Qualifiers: Urinary tract infection type: acute cystitis Hematuria presence: without hematuria Qualified Code(s): N30.00 - Acute cystitis without hematuria Disposition: DC-01 TO HOME OR SELFCARE Is pt being admited?: No Does the pt Need Aspirin: No Condition: Stable Instructions: Urinary Tract Infection in Women (ED), Acute Nausea and Vomiting (ED) Prescriptions: diphenhydrAMINE [Benadryl CAP] 25 mg PO Q8HR PRN #15 capsule PRN Reason: Nausea And Vomiting cephALEXin [Keflex] 500 mg PO BID 7 Days #14 cap Metoclopramide [Reglan] 10 mg PO Q8H PRN #15 tab PRN Reason: Nausea Referrals: ANALILIA STEPHENSON MD [Staff Physician] - 3-5 Days Forms: Work/School Release Form(ED) Time of Disposition: 22:12
[2019-10-05] MEDS ORDERED: diphenhydrAMINE 50 MG/ML VIAL IV ONE ×2 (20:03→21:55)
[2019-10-05] MEDS ORDERED: diphenhydrAMINE 50 MG/ML VIAL ONE (20:04)
[2019-10-05] MEDS ORDERED: hydrALAZINE 25 MG TAB PO ONE (21:31)
[2019-10-05] MEDS ORDERED: ACETAMINOPHEN 500 MG TAB PO ONE (21:31)
[2019-10-05] MEDS ORDERED: METOCLOPRAMIDE 10 MG TAB PO ONE (21:31)
[2019-10-05 21:43] LABS: Bilirubin,Urine NEG (Negative); Blood,Urine SM (Negative); Color,Urine Yellow (Yellow); Mucus,Urine 2+ /HPF
[2019-10-05] MEDS ORDERED: METOCLOPRAMIDE 10 MG/2 ML INJ IV ONE (21:55)
[2019-10-05] MEDS ORDERED: cephALEXin 500 MG CAP PO ONE (22:01)
[2019-10-05] MEDS ORDERED: hydrALAZINE 20 MG/1 ML INJ IV ONE (22:05)
[2019-10-05 22:17] VITALS: BP 207/85
== END 2019-10-05 22:15 | disposition left against medical advice (07) ==
LOC: ED 14:35
DX: N39.0 Urinary tract infection, site not specified (principal); R11.2 Nausea with vomiting, unspecified; G43.909 Migraine, unspecified, not intractable, without status migrainosus; F17.200 Nicotine dependence, unspecified, uncomplicated
CPT/HCPCS: 36415; 80053; 81001; 83690; 85025; 87086; 96361; 96374; 96375; 96376; 99284; J0360; J1200; J2405; J2765; J7030